=== PATIENT | female | born 1950 | race African-American/Black ===

== ENCOUNTER 2016-12-17 17:52 | Emergency (ER) | payer OTHER ==
[~2016-12-17] VITALS: Ht 160 cm; Wt 104.5 kg
[2016-12-17] MEDS ORDERED: ALBUTEROL SULFATE 2.5 MG/0.5 ML NEB SOLUTION NEB ONE (19:00)
[2016-12-17] MEDS ORDERED: 0.9% SODIUM CHLORIDE 5 ML NEB SOLUTION NEB ONE (19:34)
[2016-12-17] MEDS ORDERED: MECLIZINE HCL 25 MG TABLET PO ONE (19:45)
[2016-12-17 19:57] LABS: BASOPHILS % (AUTO) 0.6 % (0.0-2.0); EOSINOPHILS % (AUTO) 2.6 % (1.0-6.0); HEMATOCRIT 35.8 % (36-46); HEMOGLOBIN 12.1 g/dL (12.0-16.0); LYMPHOCYTES # (AUTO) 3.2 K/uL (1.0-4.8); LYMPHOCYTES % (AUTO) 47.7 % (22.0-44.0); MEAN CORPUSCULAR HEMOGLOBIN 29.5 pg (26.0-34.0); MEAN CORPUSCULAR HGB CONC 33.7 G/dL (31.0-37.0); MEAN CORPUSCULAR VOLUME 88 fL (80-100); MONOCYTES # (AUTO) 0.5 K/uL (0.1-1.0); MONOCYTES % (AUTO) 7.7 % (2.0-9.0); NEUTROPHILS # (AUTO) 2.8 K/uL (1.8-7.7); NEUTROPHILS % (AUTO) 41.4 % (40.0-70.0); PLATELET COUNT (AUTO) 239 K/uL (150-450); RED BLOOD CELL COUNT(AUTO) 4.08 MIL/uL (4.00-5.20); RED CELL DISTRIBUTION WIDTH 15.9 % (11.5-14.5); WHITE BLOOD COUNT (AUTO) 6.8 K/uL (4.5-11.0)
[2016-12-17 20:14] LABS: ANION GAP 7 mmol/L (8-16); CALCIUM, TOTAL 9.1 mg/dL (8.8-10.5); CARBON DIOXIDE 29 mmol/L (22-29); CHLORIDE 109 mmol/L (98-107); CREATININE 0.94 mg/dL (0.60-1.30); GLOMERULAR FILTR. RATE CALC > 60 mL/min (>60); POTASSIUM 3.4 mmol/L (3.5-5.1); SODIUM SERUM 145 mmol/L (136-145); UREA NITROGEN, BLOOD 12 mg/dL (7-18)
[2016-12-17 20:17] LABS: B-TYPE NATRIURETIC PEPTIDE 27 pg/mL (0-100)
[2016-12-17 20:18] LABS: APPEARANCE,URINE CLEAR (CLEAR); GLUCOSE, URINE (UA) NEGATIVE (NEGATIVE); KETONES,URINE NEGATIVE (NEGATIVE); LEUKOCYTE ESTERASE ,URINE NEGATIVE (NEGATIVE); OCCULT BLOOD,URINE NEGATIVE (NEGATIVE); PROTEIN,URINE SEE CONFIRM (NEGATIVE)
[2016-12-17 20:19] LABS: ALANINE AMINOTRANSFERASE 16 U/L (12-78); ALBUMIN 3.2 g/dL (3.4-5.0); ASPARTATE AMINOTRANSFERASE 15 U/L (15-37); BILIRUBIN,TOTAL 0.2 mg/dL (0.1-1.0); TOTAL PROTEIN, SERUM 7.2 g/dL (6.4-8.2)
[2016-12-17 20:21] LABS: ADD UA MICROSCOPIC YES
[2016-12-17 20:23] LABS: RBC,URINE 0-2 /HPF (0-2); SQUAMOUS EPITHELIAL CELL,UR Moderate /LPF (None Seen); SULFOSALICYLIC ACID,URINE 2+ (Negative)
[2016-12-17 21:24] VITALS: BP 124/85
== END 2016-12-17 21:26 | disposition home or self-care (01) ==
LOC: EMS 17:52
DX: J45.909 Unspecified asthma, uncomplicated (principal); R60.0 Localized edema; R42 Dizziness and giddiness; E78.00 Pure hypercholesterolemia, unspecified; I10 Essential (primary) hypertension; F17.210 Nicotine dependence, cigarettes, uncomplicated
CPT/HCPCS: 36415; 71010; 80053; 81001; 83880; 84484; 85025; 93005; 94640; 99285; J7613

== ENCOUNTER 2017-01-11 18:56 | Emergency (ER) | payer OTHER ==
[~2017-01-11] VITALS: Ht 160 cm; Wt 109.1 kg
[2017-01-11] MEDS ORDERED: LOSA25TA21 PO (19:06)
[2017-01-11] MEDS ORDERED: ATOR10TA84 PO (19:06)
[2017-01-11] MEDS ORDERED: HYDR25TA PO (19:06)
[2017-01-11 19:48] LABS: BASOPHILS # (AUTO) 0.08 K/uL (0.00-0.20); BASOPHILS % (AUTO) 0.9 % (0.0-2.0); EOSINOPHILS # (AUTO) 0.14 K/uL (0.00-0.70); EOSINOPHILS % (AUTO) 1.66 % (1.0-6.0); HEMATOCRIT 38.3 % (36-46); HEMOGLOBIN 12.2 g/dL (12.0-16.0); LYMPHOCYTES # (AUTO) 3.4 K/uL (1.0-4.8); LYMPHOCYTES % (AUTO) 38.7 % (22.0-44.0); MEAN CORPUSCULAR HGB CONC 31.9 G/dL (31.0-37.0); MEAN CORPUSCULAR VOLUME 91 fL (80-100); MONOCYTES # (AUTO) 0.4 K/uL (0.1-1.0); MONOCYTES % (AUTO) 4.6 % (2.0-9.0); NEUTROPHILS # (AUTO) 4.7 K/uL (1.8-7.7); NEUTROPHILS % (AUTO) 54.2 % (40.0-70.0); PLATELET COUNT (AUTO) 226 K/uL (150-450); RED BLOOD CELL COUNT(AUTO) 4.22 MIL/uL (4.00-5.20); WHITE BLOOD COUNT (AUTO) 8.7 K/uL (4.5-11.0)
[2017-01-11 20:00] LABS: CALCIUM, TOTAL 9.7 mg/dL (8.8-10.5); CREATININE 1.13 mg/dL (0.60-1.30)
[2017-01-11 20:05] LABS: ALBUMIN 3.2 g/dL (3.4-5.0); BILIRUBIN,TOTAL 0.4 mg/dL (0.1-1.0); TOTAL PROTEIN, SERUM 7.7 g/dL (6.4-8.2)
[2017-01-11] MEDS ORDERED: SODIUM CHLORIDE 0.9% 1,000 ML IV ONE (20:45)
[2017-01-11] MEDS ORDERED: ONDANSETRON HCL 4 MG/2 ML VIAL IVP ONE (20:45)
[2017-01-11] MEDS ORDERED: MORPHINE SULFATE 4 MG/ML SYRINGE IVP ONE (20:45)
[2017-01-11] MEDS ORDERED: KETOROLAC TROMETHAMINE 30 MG/ML VIAL IVP ONE (20:45)
[2017-01-11 21:00] LABS: APPEARANCE,URINE CLOUDY (CLEAR); GLUCOSE, URINE (UA) NEGATIVE (NEGATIVE); KETONES,URINE NEGATIVE (NEGATIVE); LEUKOCYTE ESTERASE ,URINE NEGATIVE (NEGATIVE); OCCULT BLOOD,URINE TRACE (NEGATIVE); PROTEIN,URINE SEE CONFIRM (NEGATIVE)
[2017-01-11 21:06] LABS: ADD UA MICROSCOPIC YES
[2017-01-11 21:08] LABS: SULFOSALICYLIC ACID,URINE 1+ (Negative)
[2017-01-11 21:09] LABS: RBC,URINE 0-2 /HPF (0-2); SQUAMOUS EPITHELIAL CELL,UR Few /LPF (None Seen); WBC,URINE 0-2 /HPF (0-5)
[2017-01-11] MEDS ORDERED: LORazepam 2 MG/ML VIAL IVP ONE (23:45)
[2017-01-11] MEDS ORDERED: HYDROmorphone 2 MG/ML SYRINGE IVP ONE (23:45)
[2017-01-12 00:52] VITALS: BP 104/66
== END 2017-01-12 01:22 | disposition home or self-care (01) ==
LOC: EMS 18:58
DX: R10.9 Unspecified abdominal pain (principal); I10 Essential (primary) hypertension; E78.00 Pure hypercholesterolemia, unspecified; J45.909 Unspecified asthma, uncomplicated; F17.210 Nicotine dependence, cigarettes, uncomplicated
CPT/HCPCS: 36415; 74176; 80053; 81001; 85025; 96361; 96374; 96375; 99285; J1170; J1885; J2060; J2270; J2405; J7030

== ENCOUNTER 2017-01-29 08:55 | Emergency (ER) | payer OTHER ==
[~2017-01-29] VITALS: Ht 162.6 cm; Wt 109.1 kg
[~2017-01-29 08:55] MED LIST: ATOR10TA84 PO; HYDR25TA PO; LOSA25TA21 PO
[2017-01-29] MEDS ORDERED: IPRA4AER IH (09:05)
[2017-01-29 09:45] LABS: BASOPHILS # (AUTO) 0.04 K/uL (0.00-0.20); BASOPHILS % (AUTO) 0.7 % (0.0-2.0); EOSINOPHILS # (AUTO) 0.18 K/uL (0.00-0.70); EOSINOPHILS % (AUTO) 2.77 % (1.0-6.0); HEMATOCRIT 36.1 % (36-46); HEMOGLOBIN 12.1 g/dL (12.0-16.0); LYMPHOCYTES # (AUTO) 2.4 K/uL (1.0-4.8); LYMPHOCYTES % (AUTO) 36.5 % (22.0-44.0); MEAN CORPUSCULAR HEMOGLOBIN 29.2 pg (26.0-34.0); MEAN CORPUSCULAR HGB CONC 33.4 G/dL (31.0-37.0); MEAN CORPUSCULAR VOLUME 87 fL (80-100); MONOCYTES # (AUTO) 0.3 K/uL (0.1-1.0); MONOCYTES % (AUTO) 5.3 % (2.0-9.0); NEUTROPHILS # (AUTO) 3.6 K/uL (1.8-7.7); NEUTROPHILS % (AUTO) 54.8 % (40.0-70.0); PLATELET COUNT (AUTO) 234 K/uL (150-450); RED BLOOD CELL COUNT(AUTO) 4.13 MIL/uL (4.00-5.20); RED CELL DISTRIBUTION WIDTH 14.6 % (11.5-14.5); WHITE BLOOD COUNT (AUTO) 6.5 K/uL (4.5-11.0)
[2017-01-29 09:56] LABS: APPEARANCE,URINE CLOUDY (CLEAR); GLUCOSE, URINE (UA) NEGATIVE (NEGATIVE); KETONES,URINE NEGATIVE (NEGATIVE); LEUKOCYTE ESTERASE ,URINE NEGATIVE (NEGATIVE); OCCULT BLOOD,URINE NEGATIVE (NEGATIVE); PROTEIN,URINE SEE CONFIRM (NEGATIVE)
[2017-01-29 09:57] LABS: PROTHROMBIN TIME 10.3 SEC (9.4-11.6)
[2017-01-29 09:58] LABS: ANION GAP 8 mmol/L (8-16); CALCIUM, TOTAL 9.8 mg/dL (8.8-10.5); CARBON DIOXIDE 31 mmol/L (22-29); CHLORIDE 105 mmol/L (98-107); CREATININE 0.88 mg/dL (0.60-1.30); GLOMERULAR FILTR. RATE CALC > 60 mL/min (>60); POTASSIUM 3.3 mmol/L (3.5-5.1); SODIUM SERUM 144 mmol/L (136-145); UREA NITROGEN, BLOOD 13 mg/dL (7-18)
[2017-01-29 10:01] LABS: ADD UA MICROSCOPIC YES
[2017-01-29 10:04] LABS: B-TYPE NATRIURETIC PEPTIDE 16 pg/mL (0-100)
[2017-01-29 10:14] LABS: SULFOSALICYLIC ACID,URINE 2+ (Negative)
[2017-01-29 10:15] LABS: SQUAMOUS EPITHELIAL CELL,UR Many /LPF (None Seen)
[2017-01-29 10:16] LABS: RBC,URINE 0-2 /HPF (0-2); WBC,URINE 0-2 /HPF (0-5)
[2017-01-29 10:21] LABS: ALANINE AMINOTRANSFERASE 22 U/L (12-78); ALBUMIN 3.2 g/dL (3.4-5.0); ASPARTATE AMINOTRANSFERASE 19 U/L (15-37); BILIRUBIN,TOTAL 0.4 mg/dL (0.1-1.0); CREATINE KINASE MB 0.5 ng/mL (0-5); CREATINE KINASE, TOTAL 146 U/L (26-192); TOTAL PROTEIN, SERUM 7.6 g/dL (6.4-8.2)
[2017-01-29] MEDS ORDERED: IPRATROPIUM BROMIDE 0.5 MG/2.5 ML NEB SOLUTION NEB ONE (10:30)
[2017-01-29] MEDS ORDERED: ALBUTEROL SULFATE 2.5 MG/0.5 ML NEB SOLUTION NEB ONE (10:30)
[2017-01-29] MEDS ORDERED: MethylPREDNISolone SOD SUCC 125 MG/2 ML VIAL IVP ONE (11:15)
[2017-01-29 12:01] VITALS: BP 130/42
== END 2017-01-29 12:12 | disposition home or self-care (01) ==
LOC: EMS 08:56
DX: J45.909 Unspecified asthma, uncomplicated (principal); I10 Essential (primary) hypertension; F17.210 Nicotine dependence, cigarettes, uncomplicated
CPT/HCPCS: 36415; 71010; 80053; 81001; 82550; 82553; 83880; 84484; 85025; 85610; 85730; 93005; 94640; 96374; 99285; J2930; J7613

== ENCOUNTER 2017-03-26 05:25 | Emergency (ER) | payer OTHER ==
[~2017-03-26] VITALS: Ht 160 cm; Wt 108.6 kg
[~2017-03-26 05:25] MED LIST changes: +IPRA4AER IH
[2017-03-26] MEDS ORDERED: FURO20 PO (05:30)
[2017-03-26] MEDS ORDERED: ALBUTEROL SULFATE 2.5 MG/0.5 ML NEB SOLUTION NEB ONE (05:45)
[2017-03-26] MEDS ORDERED: IPRATROPIUM BROMIDE 0.5 MG/2.5 ML NEB SOLUTION NEB ONE (05:45)
[2017-03-26] MEDS ORDERED: PredniSONE 20 MG TABLET PO ONE (06:15)
[2017-03-26] MEDS ORDERED: ALBUTEROL SULFATE HFA 90 MCG/PUFF 8 GM INHALER IH ONE (11:30)
[2017-03-26 11:46] VITALS: BP 119/78
== END 2017-03-26 11:56 | disposition home or self-care (01) ==
LOC: EMS 05:26
DX: J45.909 Unspecified asthma, uncomplicated (principal); I10 Essential (primary) hypertension; E78.00 Pure hypercholesterolemia, unspecified; F17.210 Nicotine dependence, cigarettes, uncomplicated
CPT/HCPCS: 71010; 94640; 99285; J7512; J7613; J3535

== ENCOUNTER 2017-04-15 22:11 | Emergency (ER) | payer OTHER ==
[~2017-04-15] VITALS: Ht 162.6 cm; Wt 125.0 kg
[~2017-04-15 22:11] MED LIST changes: +FURO20 PO
[2017-04-15 22:53] LABS: BASOPHILS # (AUTO) 0.03 K/uL (0.00-0.20); BASOPHILS % (AUTO) 0.4 % (0.0-2.0); EOSINOPHILS # (AUTO) 0.02 K/uL (0.00-0.70); EOSINOPHILS % (AUTO) 0.29 % (1.0-6.0); HEMOGLOBIN 10.8 g/dL (12.0-16.0); LYMPHOCYTES # (AUTO) 1.8 K/uL (1.0-4.8); LYMPHOCYTES % (AUTO) 22.9 % (22.0-44.0); MEAN CORPUSCULAR HEMOGLOBIN 29.4 pg (26.0-34.0); MEAN CORPUSCULAR HGB CONC 32.7 G/dL (31.0-37.0); MEAN CORPUSCULAR VOLUME 90 fL (80-100); MONOCYTES # (AUTO) 0.4 K/uL (0.1-1.0); MONOCYTES % (AUTO) 5.3 % (2.0-9.0); NEUTROPHILS # (AUTO) 5.6 K/uL (1.8-7.7); NEUTROPHILS % (AUTO) 71.1 % (40.0-70.0); PLATELET COUNT (AUTO) 279 K/uL (150-450); RED BLOOD CELL COUNT(AUTO) 3.68 MIL/uL (4.00-5.20); RED CELL DISTRIBUTION WIDTH 15.4 % (11.5-14.5)
[2017-04-15 23:02] LABS: ANION GAP 3 mmol/L (8-16); CALCIUM, TOTAL 9.2 mg/dL (8.8-10.5); CARBON DIOXIDE 33 mmol/L (22-29); CHLORIDE 105 mmol/L (98-107); CREATININE 1.24 mg/dL (0.60-1.30); GLOMERULAR FILTR. RATE CALC 53 mL/min (>60); GLUCOSE,RANDOM 151 mg/dL (70-110); POTASSIUM 3.4 mmol/L (3.5-5.1); SODIUM SERUM 141 mmol/L (136-145); UREA NITROGEN, BLOOD 22 mg/dL (7-18)
[2017-04-15 23:15] LABS: B-TYPE NATRIURETIC PEPTIDE 37 pg/mL (0-100)
[2017-04-15] MEDS ORDERED: POTASSIUM CHLORIDE 20 MEQ ER TABLET PO ONE (23:15)
[2017-04-15 23:31] LABS: ALANINE AMINOTRANSFERASE 17 U/L (12-78); ALBUMIN 3.1 g/dL (3.4-5.0); ALKALINE PHOSPHATASE 91 U/L (46-116); ASPARTATE AMINOTRANSFERASE 13 U/L (15-37); BILIRUBIN,TOTAL 0.2 mg/dL (0.1-1.0); CREATINE KINASE MB 0.6 ng/mL (0-5); CREATINE KINASE, TOTAL 114 U/L (26-192); THYROID STIMULATING HORMONE 1.34 uIU/mL (0.36-3.74); TOTAL PROTEIN, SERUM 7.2 g/dL (6.4-8.2)
[2017-04-15 23:45] LABS: APPEARANCE,URINE CLEAR (CLEAR); BILIRUBIN,URINE NEGATIVE (NEGATIVE); GLUCOSE, URINE (UA) NEGATIVE (NEGATIVE); KETONES,URINE NEGATIVE (NEGATIVE); LEUKOCYTE ESTERASE ,URINE SMALL (NEGATIVE); NITRATE,URINE NEGATIVE (NEGATIVE); OCCULT BLOOD,URINE NEGATIVE (NEGATIVE); PH,URINE 6.5 (5.0-8.0); PROTEIN,URINE POS 1+ (NEGATIVE)
[2017-04-15 23:56] LABS: SQUAMOUS EPITHELIAL CELL,UR Few /LPF (None Seen)
[2017-04-16] LABS: RBC,URINE 0-2 /HPF (0-2)
[2017-04-16 00:01] LABS: BACTERIA,URINE Few /HPF (None Seen)
[2017-04-16 00:18] VITALS: BP 137/85
[2017-04-16] MEDS ORDERED: KETOROLAC TROMETHAMINE 60 MG/2 ML VIAL IM ONE (00:30)
[2017-04-16] MEDS ORDERED: HydrOXYzine HCL 25 MG TABLET PO ONE (00:30)
== END 2017-04-16 00:43 | disposition home or self-care (01) ==
LOC: EMS 22:12
DX: F41.9 Anxiety disorder, unspecified (principal); E87.6 Hypokalemia; M25.562 Pain in left knee; G89.29 Other chronic pain; J45.909 Unspecified asthma, uncomplicated; E78.00 Pure hypercholesterolemia, unspecified; I10 Essential (primary) hypertension; F17.210 Nicotine dependence, cigarettes, uncomplicated
CPT/HCPCS: 36415; 71010; 80053; 81001; 82550; 82553; 83880; 84443; 84484; 85025; 87077; 87086; 87147; 93005; 96372; 99285; J1885

== ENCOUNTER 2017-04-30 18:12 | Emergency (ER) | payer OTHER ==
[~2017-04-30] VITALS: Ht 162.6 cm; Wt 104.5 kg
[2017-04-30 18:15] VITALS: BP 126/67
[2017-04-30] MEDS ORDERED: KETOROLAC TROMETHAMINE 60 MG/2 ML VIAL IM ONE (20:15)
== END 2017-04-30 21:32 | disposition home or self-care (01) ==
LOC: EMS 18:13
DX: M25.461 Effusion, right knee (principal); M25.561 Pain in right knee; J45.909 Unspecified asthma, uncomplicated; I10 Essential (primary) hypertension; E78.00 Pure hypercholesterolemia, unspecified; F17.210 Nicotine dependence, cigarettes, uncomplicated
CPT/HCPCS: 29505; 73562; 96372; 99284; J1885

== ENCOUNTER 2017-06-06 17:43 | Emergency (ER) | payer OTHER ==
[~2017-06-06] VITALS: Ht 162.6 cm; Wt 108.6 kg
[2017-06-06 18:19] LABS: BASOPHILS # (AUTO) 0.03 K/uL (0.00-0.20); BASOPHILS % (AUTO) 0.5 % (0.0-2.0); EOSINOPHILS # (AUTO) 0.05 K/uL (0.00-0.70); EOSINOPHILS % (AUTO) 0.92 % (1.0-6.0); HEMOGLOBIN 11.3 g/dL (12.0-16.0); LYMPHOCYTES # (AUTO) 1.3 K/uL (1.0-4.8); LYMPHOCYTES % (AUTO) 22.5 % (22.0-44.0); MEAN CORPUSCULAR HEMOGLOBIN 29.1 pg (26.0-34.0); MEAN CORPUSCULAR HGB CONC 32.3 G/dL (31.0-37.0); MEAN CORPUSCULAR VOLUME 90 fL (80-100); MONOCYTES # (AUTO) 0.6 K/uL (0.1-1.0); MONOCYTES % (AUTO) 9.9 % (2.0-9.0); NEUTROPHILS # (AUTO) 3.9 K/uL (1.8-7.7); NEUTROPHILS % (AUTO) 66.2 % (40.0-70.0); PLATELET COUNT (AUTO) 277 K/uL (150-450); RED BLOOD CELL COUNT(AUTO) 3.89 MIL/uL (4.00-5.20)
[2017-06-06 18:30] LABS: ANION GAP 4 mmol/L (8-16); CALCIUM, TOTAL 9.6 mg/dL (8.8-10.5); CARBON DIOXIDE 32 mmol/L (22-29); CHLORIDE 104 mmol/L (98-107); CREATININE 1.06 mg/dL (0.60-1.30); GLOMERULAR FILTR. RATE CALC > 60 mL/min (>60); GLUCOSE,RANDOM 96 mg/dL (70-110); POTASSIUM 3.2 mmol/L (3.5-5.1); SODIUM SERUM 140 mmol/L (136-145); UREA NITROGEN, BLOOD 13 mg/dL (7-18)
[2017-06-06 18:35] LABS: PLATELET MORPHOLOGY COMMENT GIANT PLTS PRESENT
[2017-06-06 18:36] LABS: ALANINE AMINOTRANSFERASE 18 U/L (12-78); ALBUMIN 3.1 g/dL (3.4-5.0); ALKALINE PHOSPHATASE 83 U/L (46-116); ASPARTATE AMINOTRANSFERASE 16 U/L (15-37); BILIRUBIN,TOTAL 0.2 mg/dL (0.1-1.0); TOTAL PROTEIN, SERUM 7.8 g/dL (6.4-8.2)
[2017-06-06] MEDS ORDERED: ACETAMINOPHEN 325 MG TABLET PO ONE (18:45)
[2017-06-06 19:27] LABS: INFLUENZA TYPE A NEGATIVE FOR TYPE A (NEGATIVE); INFLUENZA TYPE B NEGATIVE FOR TYPE B (NEGATIVE)
[2017-06-06 19:48] VITALS: BP 133/70
== END 2017-06-06 20:43 | disposition home or self-care (01) ==
LOC: EMS 17:44
DX: J40 Bronchitis, not specified as acute or chronic (principal); J11.1 Influenza due to unidentified influenza virus with other respiratory manifestations; E78.00 Pure hypercholesterolemia, unspecified; I10 Essential (primary) hypertension; F17.210 Nicotine dependence, cigarettes, uncomplicated; Z79.899 Other long term (current) drug therapy
CPT/HCPCS: 87804; 93005; 99285

== ENCOUNTER 2017-10-12 06:08 | Emergency (ER) | payer MEDICARE, OTHER ==
[~2017-10-12] VITALS: Ht 157.5 cm; Wt 110.0 kg
[2017-10-12] MEDS ORDERED: POTA-9 PO (06:18)
[2017-10-12] MEDS ORDERED: BUDE10.22 IH (06:18)
[2017-10-12] MEDS ORDERED: ALBUTEROL SULFATE 2.5 MG/0.5 ML NEB SOLUTION NEB ONE (06:45)
[2017-10-12] MEDS ORDERED: IPRATROPIUM BROMIDE 0.5 MG/2.5 ML NEB SOLUTION NEB ONE (06:45)
[2017-10-12] MEDS ORDERED: 0.9% SODIUM CHLORIDE 5 ML NEB SOLUTION NEB ONE (06:49)
[2017-10-12 06:58] LABS: BASOPHILS % (AUTO) 0.7 % (0.0-2.0); EOSINOPHILS % (AUTO) 1.8 % (1.0-6.0); HEMATOCRIT 34.8 % (36-46); HEMOGLOBIN 11.5 g/dL (12.0-16.0); LYMPHOCYTES # (AUTO) 2.3 K/uL (1.0-4.8); LYMPHOCYTES % (AUTO) 39.2 % (22.0-44.0); MEAN CORPUSCULAR HEMOGLOBIN 28.6 pg (26.0-34.0); MEAN CORPUSCULAR HGB CONC 33.2 G/dL (31.0-37.0); MEAN CORPUSCULAR VOLUME 86 fL (80-100); MONOCYTES # (AUTO) 0.4 K/uL (0.1-1.0); MONOCYTES % (AUTO) 6.8 % (2.0-9.0); NEUTROPHILS # (AUTO) 3.1 K/uL (1.8-7.7); NEUTROPHILS % (AUTO) 51.5 % (40.0-70.0); PLATELET COUNT (AUTO) 286 K/uL (150-450); RED BLOOD CELL COUNT(AUTO) 4.03 MIL/uL (4.00-5.20); RED CELL DISTRIBUTION WIDTH 15.3 % (11.5-14.5)
[2017-10-12 07:10] LABS: ANION GAP 7 mmol/L (8-16); CARBON DIOXIDE 33 mmol/L (22-29); CHLORIDE 103 mmol/L (98-107); CREATININE 1.05 mg/dL (0.60-1.30); GLOMERULAR FILTR. RATE CALC > 60 mL/min (>60); GLUCOSE,RANDOM 112 mg/dL (70-110); SODIUM SERUM 143 mmol/L (136-145); UREA NITROGEN, BLOOD 18 mg/dL (7-18)
[2017-10-12 07:15] LABS: ALANINE AMINOTRANSFERASE 18 U/L (12-78); ALKALINE PHOSPHATASE 81 U/L (46-116); ASPARTATE AMINOTRANSFERASE 18 U/L (15-37); BILIRUBIN,TOTAL 0.2 mg/dL (0.1-1.0); TOTAL PROTEIN, SERUM 7.5 g/dL (6.4-8.2)
[2017-10-12 07:34] LABS: B-TYPE NATRIURETIC PEPTIDE 9 pg/mL (0-100)
[2017-10-12] MEDS ORDERED: SODIUM CHLORIDE 0.9% 1,000 ML IV ONE ×2 (08:00→10:30)
[2017-10-12] MEDS ORDERED: POTASSIUM CHLORIDE 20 MEQ ER TABLET PO ONE (08:00)
[2017-10-12 11:15] VITALS: BP 115/66
== END 2017-10-12 12:42 | disposition home or self-care (01) ==
LOC: EMS 06:09
DX: J45.909 Unspecified asthma, uncomplicated (principal); R42 Dizziness and giddiness; E87.6 Hypokalemia; I10 Essential (primary) hypertension; E78.00 Pure hypercholesterolemia, unspecified; F17.210 Nicotine dependence, cigarettes, uncomplicated
CPT/HCPCS: 36415; 71045; 80053; 83880; 84484; 85025; 93005; 94640; 96360; 96361; 99285; J7030

== ENCOUNTER 2017-12-09 21:39 | Emergency (ER) | payer MEDICARE, OTHER ==
[~2017-12-09] VITALS: Ht 160 cm; Wt 109.1 kg
[~2017-12-09 21:39] MED LIST changes: -ATOR10TA84 PO; +BUDE10.22 IH; -FURO20 PO; +POTA-9 PO
[2017-12-09] MEDS ORDERED: CYCLOBENZAPRINE HCL 10 MG TABLET PO ONE (22:30)
[2017-12-09 22:53] LABS: BASOPHILS % (AUTO) 0.9 % (0.0-2.0); EOSINOPHILS % (AUTO) 2.2 % (1.0-6.0); HEMATOCRIT 32.7 % (36-46); HEMOGLOBIN 10.9 g/dL (12.0-16.0); LYMPHOCYTES # (AUTO) 2.9 K/uL (1.0-4.8); LYMPHOCYTES % (AUTO) 37.2 % (22.0-44.0); MEAN CORPUSCULAR HEMOGLOBIN 28.9 pg (26.0-34.0); MEAN CORPUSCULAR HGB CONC 33.4 G/dL (31.0-37.0); MEAN CORPUSCULAR VOLUME 87 fL (80-100); MONOCYTES # (AUTO) 0.6 K/uL (0.1-1.0); MONOCYTES % (AUTO) 8.2 % (2.0-9.0); NEUTROPHILS # (AUTO) 4.1 K/uL (1.8-7.7); NEUTROPHILS % (AUTO) 51.5 % (40.0-70.0); PLATELET COUNT (AUTO) 261 K/uL (150-450); RED BLOOD CELL COUNT(AUTO) 3.78 MIL/uL (4.00-5.20); RED CELL DISTRIBUTION WIDTH 15.8 % (11.5-14.5)
[2017-12-09 23:03] LABS: CREATININE 1.21 mg/dL (0.60-1.30); POTASSIUM 3.4 mmol/L (3.5-5.1)
[2017-12-09 23:09] LABS: ALBUMIN 3.1 g/dL (3.4-5.0); BILIRUBIN,TOTAL 0.2 mg/dL (0.1-1.0); TOTAL PROTEIN, SERUM 7.3 g/dL (6.4-8.2)
[2017-12-10 04:23] VITALS: BP 116/67
== END 2017-12-10 04:24 | disposition home or self-care (01) ==
LOC: EMS 21:40
DX: M79.622 Pain in left upper arm (principal); J45.909 Unspecified asthma, uncomplicated; E78.00 Pure hypercholesterolemia, unspecified; I10 Essential (primary) hypertension; Z87.891 Personal history of nicotine dependence
CPT/HCPCS: 93005; 93971; 99285

== ENCOUNTER 2018-01-26 17:05 | Emergency (ER) | payer MEDICARE, OTHER ==
[~2018-01-26] VITALS: Ht 162.6 cm; Wt 108.6 kg
[~2018-01-26 17:05] MED LIST changes: +LOSA25TA16 PO; -LOSA25TA21 PO
[2018-01-26 18:35] LABS: BASOPHILS % (AUTO) 0.6 % (0.0-2.0); EOSINOPHILS % (AUTO) 1.7 % (1.0-6.0); HEMATOCRIT 36.6 % (36-46); HEMOGLOBIN 11.9 g/dL (12.0-16.0); LYMPHOCYTES % (AUTO) 43.2 % (22.0-44.0); MEAN CORPUSCULAR HEMOGLOBIN 28.6 pg (26.0-34.0); MEAN CORPUSCULAR HGB CONC 32.6 G/dL (31.0-37.0); MEAN CORPUSCULAR VOLUME 88 fL (80-100); MONOCYTES # (AUTO) 0.5 K/uL (0.1-1.0); MONOCYTES % (AUTO) 7.2 % (2.0-9.0); NEUTROPHILS # (AUTO) 3.2 K/uL (1.8-7.7); NEUTROPHILS % (AUTO) 47.3 % (40.0-70.0); PLATELET COUNT (AUTO) 294 K/uL (150-450); RED BLOOD CELL COUNT(AUTO) 4.18 MIL/uL (4.00-5.20); RED CELL DISTRIBUTION WIDTH 15.3 % (11.5-14.5)
[2018-01-26 19:03] LABS: B-TYPE NATRIURETIC PEPTIDE 11 pg/mL (0-100)
[2018-01-26 19:09] LABS: ALANINE AMINOTRANSFERASE 19 U/L (12-78); ALBUMIN 3.2 g/dL (3.4-5.0); ALKALINE PHOSPHATASE 90 U/L (46-116); ANION GAP 6 mmol/L (8-16); ASPARTATE AMINOTRANSFERASE 17 U/L (15-37); BILIRUBIN,TOTAL 0.3 mg/dL (0.1-1.0); CALCIUM, TOTAL 9.4 mg/dL (8.8-10.5); CARBON DIOXIDE 34 mmol/L (22-29); CHLORIDE 103 mmol/L (98-107); CREATINE KINASE MB 0.9 ng/mL (0-5); CREATINE KINASE, TOTAL 148 U/L (26-192); CREATININE 1.12 mg/dL (0.60-1.30); GLOMERULAR FILTR. RATE CALC 59 mL/min (>60); GLUCOSE,RANDOM 95 mg/dL (70-110); SODIUM SERUM 143 mmol/L (136-145); TOTAL PROTEIN, SERUM 7.5 g/dL (6.4-8.2); UREA NITROGEN, BLOOD 18 mg/dL (7-18)
[2018-01-26 19:11] LABS: POTASSIUM 2.7 mmol/L (3.5-5.1)
[2018-01-26] MEDS ORDERED: POTASSIUM CHLORIDE 20 MEQ ER TABLET PO ONE (20:00)
[2018-01-26] MEDS: POTASSIUM CHL 10 MEQ/WATER 50 ML IV SCH ×2 (20:29→21:13)
[2018-01-26 21:23] LABS: APPEARANCE,URINE CLEAR (CLEAR); BILIRUBIN,URINE NEGATIVE (NEGATIVE); GLUCOSE, URINE (UA) NEGATIVE (NEGATIVE); KETONES,URINE NEGATIVE (NEGATIVE); LEUKOCYTE ESTERASE ,URINE NEGATIVE (NEGATIVE); NITRATE,URINE NEGATIVE (NEGATIVE); OCCULT BLOOD,URINE NEGATIVE (NEGATIVE); PH,URINE 5.5 (5.0-8.0); PROTEIN,URINE NEGATIVE (NEGATIVE); UROBILINOGEN,URINE 0.2 mg/dL (<=1.0)
[2018-01-26 22:07] VITALS: BP 120/70
== END 2018-01-26 22:19 | disposition home or self-care (01) ==
LOC: EMS 17:06
DX: E87.6 Hypokalemia (principal); R42 Dizziness and giddiness; R00.2 Palpitations; M79.89 Other specified soft tissue disorders; J45.909 Unspecified asthma, uncomplicated; E78.00 Pure hypercholesterolemia, unspecified; I10 Essential (primary) hypertension; Z87.891 Personal history of nicotine dependence
CPT/HCPCS: 36415; 71045; 80053; 81003; 82550; 82553; 83880; 84484; 85025; 85610; 85730; 93005; 96365; 96366; 99285; J3480

== ENCOUNTER 2018-05-02 22:02 | Emergency (ER) | payer MEDICARE, OTHER ==
[~2018-05-02] VITALS: Ht 160 cm; Wt 109.1 kg
[2018-05-02] MEDS ORDERED: IPRAHFA IH (22:14)
[2018-05-02] MEDS ORDERED: ATOR40TA71 PO (22:15)
[2018-05-02] MEDS ORDERED: MethylPREDNISolone SOD SUCC 125 MG/2 ML VIAL IM ONE (23:00)
[2018-05-02] MEDS ORDERED: ALBUTEROL SULFATE 2.5 MG/0.5 ML NEB SOLUTION NEB ONE (23:00)
[2018-05-02] MEDS ORDERED: 0.9% SODIUM CHLORIDE 5 ML NEB SOLUTION NEB ONE (23:10)
[2018-05-02 23:22] LABS: BASOPHILS % (AUTO) 1.2 % (0.0-2.0); EOSINOPHILS % (AUTO) 1.9 % (1.0-6.0); HEMATOCRIT 34.4 % (36-46); HEMOGLOBIN 11.4 g/dL (12.0-16.0); LYMPHOCYTES # (AUTO) 3.4 K/uL (1.0-4.8); LYMPHOCYTES % (AUTO) 46.3 % (22.0-44.0); MEAN CORPUSCULAR HEMOGLOBIN 28.8 pg (26.0-34.0); MEAN CORPUSCULAR HGB CONC 33.3 G/dL (31.0-37.0); MEAN CORPUSCULAR VOLUME 87 fL (80-100); MONOCYTES # (AUTO) 0.6 K/uL (0.1-1.0); MONOCYTES % (AUTO) 7.5 % (2.0-9.0); NEUTROPHILS # (AUTO) 3.2 K/uL (1.8-7.7); NEUTROPHILS % (AUTO) 43.1 % (40.0-70.0); PLATELET COUNT (AUTO) 261 K/uL (150-450); RED BLOOD CELL COUNT(AUTO) 3.97 MIL/uL (4.00-5.20); RED CELL DISTRIBUTION WIDTH 15.5 % (11.5-14.5)
[2018-05-03] MEDS ORDERED: CefTRIAXone SODIUM 1 GM/VIAL IM ONE (01:15)
[2018-05-03] MEDS ORDERED: AZITHROMYCIN 250 MG TABLET PO ONE (01:15)
[2018-05-03] MEDS ORDERED: LIDOCAINE/PF 1% 2 ML VIAL IM ONE (01:15)
[2018-05-03] MEDS ORDERED: MethylPREDNISolone SOD SUCC 125 MG/2 ML VIAL IM ONE (01:15)
[2018-05-03 01:43] VITALS: BP 131/72
== END 2018-05-03 02:02 | disposition home or self-care (01) ==
LOC: EMS 22:03
DX: J45.909 Unspecified asthma, uncomplicated (principal); J18.9 Pneumonia, unspecified organism; E78.00 Pure hypercholesterolemia, unspecified; I10 Essential (primary) hypertension; Z87.891 Personal history of nicotine dependence
CPT/HCPCS: 36415; 71046; 85025; 94640; 96372; 99284; J0696; J2930; J3490

== ENCOUNTER 2018-05-13 17:53 | Emergency (ER) | payer MEDICARE, OTHER ==
[~2018-05-13] VITALS: Ht 162.6 cm; Wt 109.1 kg
[~2018-05-13 17:53] MED LIST changes: +ATOR40TA71 PO; -BUDE10.22 IH; -IPRA4AER IH; +IPRAHFA IH; -LOSA25TA16 PO; +LOSA25TA41 PO
[2018-05-13 18:23] LABS: BASOPHILS % (AUTO) 1.8 % (0.0-2.0); EOSINOPHILS % (AUTO) 1.5 % (1.0-6.0); HEMATOCRIT 36.8 % (36-46); HEMOGLOBIN 12.2 g/dL (12.0-16.0); LYMPHOCYTES # (AUTO) 4.2 K/uL (1.0-4.8); LYMPHOCYTES % (AUTO) 45.8 % (22.0-44.0); MEAN CORPUSCULAR HEMOGLOBIN 28.8 pg (26.0-34.0); MEAN CORPUSCULAR HGB CONC 33.1 G/dL (31.0-37.0); MEAN CORPUSCULAR VOLUME 87 fL (80-100); MONOCYTES # (AUTO) 0.5 K/uL (0.1-1.0); MONOCYTES % (AUTO) 5.1 % (2.0-9.0); NEUTROPHILS # (AUTO) 4.2 K/uL (1.8-7.7); NEUTROPHILS % (AUTO) 45.8 % (40.0-70.0); PLATELET COUNT (AUTO) 309 K/uL (150-450); RED BLOOD CELL COUNT(AUTO) 4.23 MIL/uL (4.00-5.20); RED CELL DISTRIBUTION WIDTH 15.5 % (11.5-14.5)
[2018-05-13 18:34] LABS: CALCIUM, TOTAL 9.4 mg/dL (8.8-10.5); CREATININE 1.29 mg/dL (0.60-1.30); POTASSIUM 3.2 mmol/L (3.5-5.1)
[2018-05-13 18:40] LABS: ALBUMIN 3.1 g/dL (3.4-5.0); BILIRUBIN,TOTAL 0.4 mg/dL (0.1-1.0); TOTAL PROTEIN, SERUM 7.4 g/dL (6.4-8.2)
[2018-05-13] MEDS ORDERED: BACLOFEN 10 MG TABLET PO ONE (19:15)
[2018-05-13] MEDS ORDERED: KETOROLAC TROMETHAMINE 60 MG/2 ML VIAL IM ONE (19:15)
[2018-05-13] MEDS ORDERED: POTASSIUM CHLORIDE 20 MEQ ER TABLET PO ONE (19:30)
[2018-05-13] MEDS ORDERED: ALBUTEROL SULFATE 2.5 MG/0.5 ML NEB SOLUTION NEB ONE (19:30)
[2018-05-13] MEDS ORDERED: 0.9% SODIUM CHLORIDE 5 ML NEB SOLUTION NEB ONE (19:31)
[2018-05-13 20:06] VITALS: BP 119/72
== END 2018-05-13 20:32 | disposition home or self-care (01) ==
LOC: EMS 17:53
DX: J45.909 Unspecified asthma, uncomplicated (principal); R06.02 Shortness of breath; M54.5 Low back pain; I10 Essential (primary) hypertension; E78.00 Pure hypercholesterolemia, unspecified; F17.210 Nicotine dependence, cigarettes, uncomplicated
CPT/HCPCS: 36415; 71045; 80053; 81002; 83880; 84484; 85025; 93005; 94640; 96372; 99284; J1885

== ENCOUNTER 2018-05-24 16:19 | Emergency (ER) | payer MEDICARE, OTHER ==
[~2018-05-24] VITALS: Ht 162.6 cm; Wt 109.1 kg
[2018-05-24] MEDS ORDERED: CYCLOBENZAPRINE HCL 10 MG TABLET PO ONE (18:30)
[2018-05-24] MEDS ORDERED: KETOROLAC TROMETHAMINE 60 MG/2 ML VIAL IM ONE (18:30)
[2018-05-24] MEDS ORDERED: IPRATROPIUM BROMIDE 0.5 MG/2.5 ML NEB SOLUTION NEB ONE (18:30)
[2018-05-24] MEDS ORDERED: ALBUTEROL SULFATE 2.5 MG/0.5 ML NEB SOLUTION NEB ONE (18:30)
[2018-05-24] MEDS ORDERED: 0.9% SODIUM CHLORIDE 5 ML NEB SOLUTION NEB ONE (18:48)
[2018-05-24] MEDS ORDERED: ACETAMINOPHEN 500 MG TABLET ONE (18:50)
[2018-05-24] MEDS ORDERED: ACETAMINOPHEN 500 MG TABLET PO ONE (19:00)
[2018-05-24 19:10] LABS: BASOPHILS % (AUTO) 0.5 % (0.0-2.0); EOSINOPHILS % (AUTO) 1.8 % (1.0-6.0); HEMATOCRIT 36.1 % (36-46); HEMOGLOBIN 12.1 g/dL (12.0-16.0); LYMPHOCYTES # (AUTO) 3.1 K/uL (1.0-4.8); MEAN CORPUSCULAR HEMOGLOBIN 29.4 pg (26.0-34.0); MEAN CORPUSCULAR HGB CONC 33.4 G/dL (31.0-37.0); MEAN CORPUSCULAR VOLUME 88 fL (80-100); MONOCYTES # (AUTO) 0.5 K/uL (0.1-1.0); MONOCYTES % (AUTO) 7.9 % (2.0-9.0); NEUTROPHILS # (AUTO) 2.8 K/uL (1.8-7.7); NEUTROPHILS % (AUTO) 42.8 % (40.0-70.0); PLATELET COUNT (AUTO) 256 K/uL (150-450); RED CELL DISTRIBUTION WIDTH 16.1 % (11.5-14.5)
[2018-05-24 19:30] LABS: ANION GAP 6 mmol/L (8-16); CARBON DIOXIDE 31 mmol/L (22-29); CHLORIDE 107 mmol/L (98-107); CREATININE 0.94 mg/dL (0.60-1.30); GLOMERULAR FILTR. RATE CALC > 60 mL/min (>60); GLUCOSE,RANDOM 85 mg/dL (70-110); POTASSIUM 3.3 mmol/L (3.5-5.1); SODIUM SERUM 144 mmol/L (136-145); UREA NITROGEN, BLOOD 16 mg/dL (7-18)
[2018-05-24 19:37] LABS: ALANINE AMINOTRANSFERASE 20 U/L (12-78); ALBUMIN 3.2 g/dL (3.4-5.0); ALKALINE PHOSPHATASE 78 U/L (46-116); ASPARTATE AMINOTRANSFERASE 22 U/L (15-37); BILIRUBIN,TOTAL 0.2 mg/dL (0.1-1.0); TOTAL PROTEIN, SERUM 7.3 g/dL (6.4-8.2)
[2018-05-24 19:44] LABS: B-TYPE NATRIURETIC PEPTIDE 17 pg/mL (0-100)
[2018-05-24] MEDS ORDERED: POTASSIUM CHLORIDE 20 MEQ ER TABLET PO ONE (20:00)
[2018-05-24 20:24] LABS: APPEARANCE,URINE CLOUDY (CLEAR); BILIRUBIN,URINE NEGATIVE (NEGATIVE); GLUCOSE, URINE (UA) NEGATIVE (NEGATIVE); KETONES,URINE NEGATIVE (NEGATIVE); LEUKOCYTE ESTERASE ,URINE NEGATIVE (NEGATIVE); NITRATE,URINE NEGATIVE (NEGATIVE); OCCULT BLOOD,URINE NEGATIVE (NEGATIVE); PH,URINE 7.5 (5.0-8.0); PROTEIN,URINE POS 1+ (NEGATIVE)
[2018-05-24 20:54] VITALS: BP 130/70
[2018-05-24 22:48] LABS: CREATINE KINASE, TOTAL ONLY 105 U/L (26-192)
== END 2018-05-24 20:59 | disposition home or self-care (01) ==
LOC: EMS 16:19
DX: M54.5 Low back pain (principal); J45.909 Unspecified asthma, uncomplicated; E78.00 Pure hypercholesterolemia, unspecified; I10 Essential (primary) hypertension; Z88.6 Allergy status to analgesic agent; Z79.899 Other long term (current) drug therapy
CPT/HCPCS: 36415; 80053; 81003; 82550; 83880; 84484; 85025; 93005; 94640; 96372; 99285; J1885

== ENCOUNTER 2018-06-24 04:53 | Emergency (ER) | payer MEDICARE, OTHER ==
[~2018-06-24] VITALS: Ht 162.6 cm; Wt 95.5 kg
[2018-06-24] MEDS ORDERED: IPRATROPIUM BROMIDE 0.5 MG/2.5 ML NEB SOLUTION NEB ONE (05:15)
[2018-06-24] MEDS ORDERED: ALBUTEROL SULFATE 2.5 MG/0.5 ML NEB SOLUTION NEB ONE (05:15)
[2018-06-24 05:30] LABS: BASOPHILS % (AUTO) 0.9 % (0.0-2.0); EOSINOPHILS % (AUTO) 3.6 % (1.0-6.0); HEMATOCRIT 35.9 % (36-46); HEMOGLOBIN 11.7 g/dL (12.0-16.0); LYMPHOCYTES # (AUTO) 2.1 K/uL (1.0-4.8); LYMPHOCYTES % (AUTO) 36.5 % (22.0-44.0); MEAN CORPUSCULAR HEMOGLOBIN 28.8 pg (26.0-34.0); MEAN CORPUSCULAR HGB CONC 32.7 G/dL (31.0-37.0); MEAN CORPUSCULAR VOLUME 88 fL (80-100); MONOCYTES # (AUTO) 0.6 K/uL (0.1-1.0); MONOCYTES % (AUTO) 10.5 % (2.0-9.0); NEUTROPHILS # (AUTO) 2.8 K/uL (1.8-7.7); NEUTROPHILS % (AUTO) 48.5 % (40.0-70.0); PLATELET COUNT (AUTO) 262 K/uL (150-450); RED BLOOD CELL COUNT(AUTO) 4.08 MIL/uL (4.00-5.20); RED CELL DISTRIBUTION WIDTH 15.9 % (11.5-14.5)
[2018-06-24 05:50] LABS: ANION GAP 8 mmol/L (8-16); CALCIUM, TOTAL 9.3 mg/dL (8.8-10.5); CARBON DIOXIDE 31 mmol/L (22-29); CHLORIDE 105 mmol/L (98-107); CREATININE 0.85 mg/dL (0.60-1.30); GLOMERULAR FILTR. RATE CALC > 60 mL/min (>60); GLUCOSE,RANDOM 113 mg/dL (70-110); POTASSIUM 3.2 mmol/L (3.5-5.1); SODIUM SERUM 144 mmol/L (136-145); UREA NITROGEN, BLOOD 14 mg/dL (7-18)
[2018-06-24 05:56] LABS: ALANINE AMINOTRANSFERASE 19 U/L (12-78); ALKALINE PHOSPHATASE 71 U/L (46-116); ASPARTATE AMINOTRANSFERASE 21 U/L (15-37); BILIRUBIN,TOTAL 0.2 mg/dL (0.1-1.0); TOTAL PROTEIN, SERUM 7.2 g/dL (6.4-8.2)
[2018-06-24 05:58] LABS: B-TYPE NATRIURETIC PEPTIDE 18 pg/mL (0-100)
[2018-06-24] MEDS ORDERED: PredniSONE 20 MG TABLET PO ONE (06:15)
[2018-06-24] MEDS ORDERED: ALBUTEROL SULFATE HFA 90 MCG/PUFF 8 GM INHALER IH ONE (08:00)
[2018-06-24] MEDS ORDERED: IBUPROFEN 600 MG TABLET PO ONE (08:15)
[2018-06-24 08:34] VITALS: BP 124/64
== END 2018-06-24 08:37 | disposition home or self-care (01) ==
LOC: EMS 04:53
DX: J45.909 Unspecified asthma, uncomplicated (principal); I10 Essential (primary) hypertension; E78.00 Pure hypercholesterolemia, unspecified; Z79.899 Other long term (current) drug therapy; Z88.6 Allergy status to analgesic agent
CPT/HCPCS: 36415; 71045; 80053; 83880; 84484; 85025; 93005; 94640; 99284; J7512; J3535

== ENCOUNTER 2018-08-30 13:35 | Emergency (ER) | payer MEDICARE, OTHER ==
[~2018-08-30] VITALS: Ht 160 cm; Wt 106.4 kg
[2018-08-30] MEDS ORDERED: MethylPREDNISolone SOD SUCC 125 MG/2 ML VIAL IVP ONE (15:15)
[2018-08-30] MEDS ORDERED: FAMOTIDINE 10 MG/ML 2 ML VIAL IVP ONE (15:15)
[2018-08-30] MEDS ORDERED: DiphenhydrAMINE HCL 50 MG/ML VIAL IVP ONE (15:15)
[2018-08-30] MEDS ORDERED: ALBUTEROL SULFATE 2.5 MG/0.5 ML NEB SOLUTION NEB ONE (15:30)
[2018-08-30] MEDS ORDERED: KETOROLAC TROMETHAMINE 30 MG/ML VIAL IVP ONE (15:30)
[2018-08-30] MEDS ORDERED: 0.9% SODIUM CHLORIDE 10 ML SYRINGE IVP PRN (15:30)
[2018-08-30] MEDS ORDERED: IPRATROPIUM BROMIDE 0.5 MG/2.5 ML NEB SOLUTION NEB ONE (15:30)
[2018-08-30 16:31] LABS: BASOPHILS % (AUTO) 0.9 % (0.0-2.0); EOSINOPHILS % (AUTO) 2.4 % (1.0-6.0); HEMATOCRIT 37.8 % (36-46); HEMOGLOBIN 12.3 g/dL (12.0-16.0); LYMPHOCYTES # (AUTO) 2.5 K/uL (1.0-4.8); LYMPHOCYTES % (AUTO) 39.4 % (22.0-44.0); MEAN CORPUSCULAR HEMOGLOBIN 28.4 pg (26.0-34.0); MEAN CORPUSCULAR HGB CONC 32.6 G/dL (31.0-37.0); MEAN CORPUSCULAR VOLUME 87 fL (80-100); MONOCYTES # (AUTO) 0.6 K/uL (0.1-1.0); MONOCYTES % (AUTO) 8.7 % (2.0-9.0); NEUTROPHILS # (AUTO) 3.1 K/uL (1.8-7.7); NEUTROPHILS % (AUTO) 48.6 % (40.0-70.0); PLATELET COUNT (AUTO) 277 K/uL (150-450); RED BLOOD CELL COUNT(AUTO) 4.34 MIL/uL (4.00-5.20); RED CELL DISTRIBUTION WIDTH 15.8 % (11.5-14.5)
[2018-08-30 16:42] LABS: ANION GAP 9 mmol/L (8-16); CALCIUM, TOTAL 9.7 mg/dL (8.8-10.5); CARBON DIOXIDE 31 mmol/L (22-29); CHLORIDE 103 mmol/L (98-107); GLOMERULAR FILTR. RATE CALC > 60 mL/min (>60); GLUCOSE,RANDOM 141 mg/dL (70-110); POTASSIUM 3.4 mmol/L (3.5-5.1); SODIUM SERUM 143 mmol/L (136-145); UREA NITROGEN, BLOOD 10 mg/dL (7-18)
[2018-08-30 16:48] LABS: ALANINE AMINOTRANSFERASE 13 U/L (12-78); ALBUMIN 3.2 g/dL (3.4-5.0); ALKALINE PHOSPHATASE 89 U/L (46-116); ASPARTATE AMINOTRANSFERASE 16 U/L (15-37); BILIRUBIN,TOTAL 0.4 mg/dL (0.1-1.0); TOTAL PROTEIN, SERUM 7.5 g/dL (6.4-8.2)
[2018-08-30 16:51] LABS: B-TYPE NATRIURETIC PEPTIDE 17 pg/mL (0-100)
[2018-08-30] MEDS ORDERED: LEVOFLOXACIN 500 MG/D5% WATER 100 ML IV ONE (17:00)
[2018-08-30] MEDS ORDERED: POTASSIUM CHLORIDE 20 MEQ ER TABLET PO ONE (17:15)
[2018-08-30 17:16] LABS: LACTIC ACID 2.1 mmol/L (0.4-2.0)
[2018-08-30] MEDS ORDERED: SODIUM CHLORIDE 0.9% 1,000 ML IV ONE (17:30)
[2018-08-30 18:21] LABS: INFLUENZA TYPE A NEGATIVE FOR TYPE A (NEGATIVE); INFLUENZA TYPE B NEGATIVE FOR TYPE B (NEGATIVE)
[2018-08-30 19:09] VITALS: BP 11/60
== END 2018-08-30 19:45 | disposition home or self-care (01) ==
LOC: EMS 13:36
DX: J18.9 Pneumonia, unspecified organism (principal); J45.909 Unspecified asthma, uncomplicated; I10 Essential (primary) hypertension; E78.00 Pure hypercholesterolemia, unspecified; Z88.6 Allergy status to analgesic agent
CPT/HCPCS: 36415; 71045; 80053; 83605; 83880; 84484; 85025; 87040; 87804; 93005; 94640; 96365; 96375; 99285; J1885; J1956; J7030

== ENCOUNTER 2018-09-22 11:52 | Emergency (ER) | payer MEDICARE, OTHER ==
[~2018-09-22] VITALS: Ht 167.6 cm; Wt 109.1 kg
[2018-09-22 13:42] LABS: BASOPHILS % (AUTO) 0.5 % (0.0-2.0); EOSINOPHILS % (AUTO) 2.7 % (1.0-6.0); LYMPHOCYTES # (AUTO) 2.7 K/uL (1.0-4.8); LYMPHOCYTES % (AUTO) 49.7 % (22.0-44.0); MEAN CORPUSCULAR HEMOGLOBIN 28.1 pg (26.0-34.0); MEAN CORPUSCULAR HGB CONC 32.6 G/dL (31.0-37.0); MEAN CORPUSCULAR VOLUME 86 fL (80-100); MONOCYTES # (AUTO) 0.5 K/uL (0.1-1.0); MONOCYTES % (AUTO) 9.3 % (2.0-9.0); NEUTROPHILS % (AUTO) 37.8 % (40.0-70.0); PLATELET COUNT (AUTO) 285 K/uL (150-450); RED BLOOD CELL COUNT(AUTO) 4.29 MIL/uL (4.00-5.20); RED CELL DISTRIBUTION WIDTH 15.5 % (11.5-14.5)
[2018-09-22 13:48] LABS: APPEARANCE,URINE CLEAR (CLEAR); BILIRUBIN,URINE NEGATIVE (NEGATIVE); GLUCOSE, URINE (UA) NEGATIVE (NEGATIVE); KETONES,URINE NEGATIVE (NEGATIVE); LEUKOCYTE ESTERASE ,URINE NEGATIVE (NEGATIVE); NITRATE,URINE NEGATIVE (NEGATIVE); OCCULT BLOOD,URINE NEGATIVE (NEGATIVE); PH,URINE 5.5 (5.0-8.0); UROBILINOGEN,URINE 0.2 mg/dL (<=1.0)
[2018-09-22 13:51] LABS: ANION GAP 9 mmol/L (8-16); CALCIUM, TOTAL 9.6 mg/dL (8.8-10.5); CARBON DIOXIDE 29 mmol/L (22-29); CHLORIDE 106 mmol/L (98-107); CREATININE 1.01 mg/dL (0.60-1.30); GLOMERULAR FILTR. RATE CALC > 60 mL/min (>60); GLUCOSE,RANDOM 87 mg/dL (70-110); POTASSIUM 3.4 mmol/L (3.5-5.1); SODIUM SERUM 144 mmol/L (136-145); UREA NITROGEN, BLOOD 22 mg/dL (7-18)
[2018-09-22 13:58] LABS: PROTEIN,URINE NEGATIVE (NEGATIVE)
[2018-09-22 14:06] LABS: B-TYPE NATRIURETIC PEPTIDE 12 pg/mL (0-100)
[2018-09-22 14:16] LABS: ALANINE AMINOTRANSFERASE 16 U/L (12-78); ALBUMIN 3.3 g/dL (3.4-5.0); ALKALINE PHOSPHATASE 82 U/L (46-116); ASPARTATE AMINOTRANSFERASE 14 U/L (15-37); BILIRUBIN,TOTAL 0.2 mg/dL (0.1-1.0); CREATINE KINASE, TOTAL ONLY 97 U/L (26-192); TOTAL PROTEIN, SERUM 7.5 g/dL (6.4-8.2)
[2018-09-22] MEDS ORDERED: CYCLOBENZAPRINE HCL 10 MG TABLET PO ONE (14:45)
[2018-09-22] MEDS ORDERED: KETOROLAC TROMETHAMINE 60 MG/2 ML VIAL IM ONE (14:45)
[2018-09-22 15:20] VITALS: BP 131/50
== END 2018-09-22 15:40 | disposition home or self-care (01) ==
LOC: EMS 11:52
DX: S39.012A Strain of muscle, fascia and tendon of lower back, initial encounter (principal); M25.561 Pain in right knee; M25.562 Pain in left knee; J45.909 Unspecified asthma, uncomplicated; I10 Essential (primary) hypertension; E78.00 Pure hypercholesterolemia, unspecified; Z79.899 Other long term (current) drug therapy; X58.XXXA Exposure to other specified factors, initial encounter; Y93.89 Activity, other specified; Y92.89 Other specified places as the place of occurrence of the external cause; Y99.8 Other external cause status
CPT/HCPCS: 36415; 71045; 80053; 81003; 82550; 83880; 84484; 85025; 93005; 96372; 99285; J1885

== ENCOUNTER 2018-11-27 14:56 | Emergency (ER) | payer MEDICARE, OTHER ==
[~2018-11-27] VITALS: Ht 160 cm; Wt 100.0 kg
[2018-11-27] MEDS ORDERED: TOPI25 PO (15:10)
[2018-11-27] MEDS ORDERED: METF-960 PO (15:10)
[2018-11-27 15:19] LABS: GLUCOSE,POINT OF CARE 106 MG/DL (70-110)
[2018-11-27 17:01] LABS: EOSINOPHILS % (AUTO) 2.7 % (1.0-6.0); HEMATOCRIT 37.8 % (36-46); HEMOGLOBIN 12.1 g/dL (12.0-16.0); LYMPHOCYTES # (AUTO) 2.6 K/uL (1.0-4.8); MEAN CORPUSCULAR VOLUME 88 fL (80-100); MONOCYTES # (AUTO) 0.4 K/uL (0.1-1.0); MONOCYTES % (AUTO) 6.9 % (2.0-9.0); NEUTROPHILS # (AUTO) 2.5 K/uL (1.8-7.7); NEUTROPHILS % (AUTO) 43.4 % (40.0-70.0); PLATELET COUNT (AUTO) 270 K/uL (150-450); RED BLOOD CELL COUNT(AUTO) 4.31 MIL/uL (4.00-5.20); RED CELL DISTRIBUTION WIDTH 15.9 % (11.5-14.5)
[2018-11-27 17:12] LABS: ANION GAP 14 mmol/L (8-16); CALCIUM, TOTAL 9.6 mg/dL (8.8-10.5); CARBON DIOXIDE 31 mmol/L (22-29); CHLORIDE 107 mmol/L (98-107); CREATININE 1.01 mg/dL (0.60-1.30); GLOMERULAR FILTR. RATE CALC > 60 mL/min (>60); GLUCOSE,RANDOM 67 mg/dL (70-110); POTASSIUM 3.7 mmol/L (3.5-5.1); SODIUM SERUM 152 mmol/L (136-145); UREA NITROGEN, BLOOD 15 mg/dL (7-18)
[2018-11-27 17:20] LABS: ALANINE AMINOTRANSFERASE 12 U/L (12-78); ALBUMIN 3.1 g/dL (3.4-5.0); ALKALINE PHOSPHATASE 88 U/L (46-116); ASPARTATE AMINOTRANSFERASE 14 U/L (15-37); BILIRUBIN,TOTAL 0.2 mg/dL (0.1-1.0); LIPASE 82 U/L (73-393); TOTAL PROTEIN, SERUM 7.5 g/dL (6.4-8.2)
[2018-11-27 17:29] LABS: B-TYPE NATRIURETIC PEPTIDE 29 pg/mL (0-100)
[2018-11-27] MEDS ORDERED: KETOROLAC TROMETHAMINE 30 MG/ML VIAL IVP ONE (17:30)
[2018-11-27] MEDS ORDERED: SODIUM CHLORIDE 0.9% 1,000 ML IV ONE (17:45)
[2018-11-27 18:53] VITALS: BP 142/68
== END 2018-11-27 20:06 | disposition home or self-care (01) ==
LOC: EMS 14:56
DX: M25.562 Pain in left knee (principal); M25.561 Pain in right knee; E11.9 Type 2 diabetes mellitus without complications; E78.00 Pure hypercholesterolemia, unspecified; I11.0 Hypertensive heart disease with heart failure; I50.9 Heart failure, unspecified; J45.909 Unspecified asthma, uncomplicated; F17.210 Nicotine dependence, cigarettes, uncomplicated; Z86.718 Personal history of other venous thrombosis and embolism; Z79.899 Other long term (current) drug therapy
CPT/HCPCS: 36415; 71045; 73562; 80053; 82962; 83690; 83880; 84484; 85025; 93005; 96374; 99285; J1885; J7030

== ENCOUNTER → 2019-04-01 | Outpatient (CLI) | payer MEDICARE, OTHER ==
[~2019-04-01] MED LIST changes: +METF-960 PO; +TOPI25 PO
== END | disposition home or self-care (01) ==
LOC: RADPV 12:47
PROVIDERS: ATTEND Family Medicine
DX: J44.9 Chronic obstructive pulmonary disease, unspecified (principal); I70.0 Atherosclerosis of aorta

== ENCOUNTER 2019-04-07 23:29 | Emergency (ER) | payer MEDICARE, OTHER ==
[~2019-04-07] VITALS: Ht 160 cm; Wt 104.5 kg
[2019-04-08 00:01] LABS: GLUCOSE,POINT OF CARE 140 MG/DL (70-110)
[2019-04-08 00:36] LABS: BASOPHILS % (AUTO) 0.8 % (0.0-2.0); EOSINOPHILS % (AUTO) 0.2 % (1.0-6.0); HEMATOCRIT 37.2 % (36-46); HEMOGLOBIN 12.3 g/dL (12.0-16.0); LYMPHOCYTES # (AUTO) 1.3 K/uL (1.0-4.8); LYMPHOCYTES % (AUTO) 17.9 % (22.0-44.0); MEAN CORPUSCULAR HEMOGLOBIN 29.4 pg (26.0-34.0); MEAN CORPUSCULAR HGB CONC 33.2 G/dL (31.0-37.0); MEAN CORPUSCULAR VOLUME 89 fL (80-100); MONOCYTES # (AUTO) 0.2 K/uL (0.1-1.0); MONOCYTES % (AUTO) 2.7 % (2.0-9.0); NEUTROPHILS # (AUTO) 5.8 K/uL (1.8-7.7); NEUTROPHILS % (AUTO) 78.4 % (40.0-70.0); PLATELET COUNT (AUTO) 259 K/uL (150-450); RED CELL DISTRIBUTION WIDTH 15.7 % (11.5-14.5)
[2019-04-08 00:48] LABS: ANION GAP 0 mmol/L (8-16); CALCIUM, TOTAL 9.4 mg/dL (8.8-10.5); CARBON DIOXIDE 36 mmol/L (22-29); CHLORIDE 106 mmol/L (98-107); GLOMERULAR FILTR. RATE CALC > 60 mL/min (>60); GLUCOSE,RANDOM 158 mg/dL (70-110); SODIUM SERUM 142 mmol/L (136-145); UREA NITROGEN, BLOOD 19 mg/dL (7-18)
[2019-04-08 00:52] LABS: ALANINE AMINOTRANSFERASE 14 U/L (12-78); ALKALINE PHOSPHATASE 84 U/L (46-116); ASPARTATE AMINOTRANSFERASE 11 U/L (15-37); BILIRUBIN,TOTAL 0.1 mg/dL (0.1-1.0); TOTAL PROTEIN, SERUM 7.2 g/dL (6.4-8.2)
[2019-04-08 00:57] LABS: B-TYPE NATRIURETIC PEPTIDE 16 pg/mL (0-100)
[2019-04-08] MEDS ORDERED: IPRATROPIUM BROMIDE 0.5 MG/2.5 ML NEB SOLUTION NEB ONE (01:30)
[2019-04-08] MEDS ORDERED: MethylPREDNISolone SOD SUCC 125 MG/2 ML VIAL IVP ONE (01:30)
[2019-04-08] MEDS ORDERED: GuaiFENesin/D-METHORPHAN [SUGAR-FREE] 200-20MG/10 ML SYRUP UDCUP PO ONE (01:30)
[2019-04-08] MEDS ORDERED: ALBUTEROL SULFATE 2.5 MG/0.5 ML NEB SOLUTION NEB ONE (01:30)
[2019-04-08] MEDS ORDERED: ACETAMINOPHEN 500 MG TABLET PO ONE (01:30)
[2019-04-08 02:13] VITALS: BP 144/72
[2019-04-08 02:20] LABS: APPEARANCE,URINE CLEAR (CLEAR); BILIRUBIN,URINE NEGATIVE (NEGATIVE); GLUCOSE, URINE (UA) NEGATIVE (NEGATIVE); KETONES,URINE NEGATIVE (NEGATIVE); LEUKOCYTE ESTERASE ,URINE NEGATIVE (NEGATIVE); NITRATE,URINE NEGATIVE (NEGATIVE); OCCULT BLOOD,URINE NEGATIVE (NEGATIVE); PH,URINE 7.5 (5.0-8.0); PROTEIN,URINE SEE CONFIRM (NEGATIVE)
[2019-04-08 02:27] LABS: BACTERIA,URINE None Seen /HPF (None Seen); RBC,URINE None Seen /HPF (0-2); SQUAMOUS EPITHELIAL CELL,UR Few /LPF (None Seen); SULFOSALICYLIC ACID,URINE 1+ (Negative); WBC,URINE 0-2 /HPF (0-5)
== END 2019-04-08 03:56 | disposition home or self-care (01) ==
LOC: EMS 23:29
DX: J44.1 Chronic obstructive pulmonary disease with (acute) exacerbation (principal); E11.9 Type 2 diabetes mellitus without complications; E78.00 Pure hypercholesterolemia, unspecified; I11.0 Hypertensive heart disease with heart failure; I50.9 Heart failure, unspecified; F17.210 Nicotine dependence, cigarettes, uncomplicated; Z86.718 Personal history of other venous thrombosis and embolism; Z79.899 Other long term (current) drug therapy; Z79.84 Long term (current) use of oral hypoglycemic drugs
CPT/HCPCS: 36415; 71045; 80053; 81001; 82962; 83880; 84484; 85025; 93005; 94640; 96374; 99284; J2930

== ENCOUNTER 2019-06-19 21:40 | Emergency (ER) | payer MEDICARE, OTHER ==
[~2019-06-19] VITALS: Ht 160 cm; Wt 109.1 kg
[2019-06-19] MEDS ORDERED: IPRATROPIUM BROMIDE 0.5 MG/2.5 ML NEB SOLUTION NEB ONE (22:00)
[2019-06-19] MEDS ORDERED: ALBUTEROL SULFATE 2.5 MG/0.5 ML NEB SOLUTION NEB ONE (22:00)
[2019-06-19 22:26] LABS: BASOPHILS % (AUTO) 0.7 % (0.0-2.0); EOSINOPHILS % (AUTO) 2.1 % (1.0-6.0); HEMOGLOBIN 12.1 g/dL (12.0-16.0); LYMPHOCYTES # (AUTO) 3.9 K/uL (1.0-4.8); LYMPHOCYTES % (AUTO) 44.2 % (22.0-44.0); MEAN CORPUSCULAR HEMOGLOBIN 29.1 pg (26.0-34.0); MEAN CORPUSCULAR HGB CONC 32.7 G/dL (31.0-37.0); MEAN CORPUSCULAR VOLUME 89 fL (80-100); MONOCYTES # (AUTO) 0.5 K/uL (0.1-1.0); MONOCYTES % (AUTO) 5.4 % (2.0-9.0); NEUTROPHILS # (AUTO) 4.2 K/uL (1.8-7.7); NEUTROPHILS % (AUTO) 47.6 % (40.0-70.0); PLATELET COUNT (AUTO) 280 K/uL (150-450); RED BLOOD CELL COUNT(AUTO) 4.16 MIL/uL (4.00-5.20); RED CELL DISTRIBUTION WIDTH 15.2 % (11.5-14.5)
[2019-06-19 22:38] LABS: ANION GAP 5 mmol/L (8-16); CALCIUM, TOTAL 9.5 mg/dL (8.8-10.5); CARBON DIOXIDE 32 mmol/L (22-29); CHLORIDE 108 mmol/L (98-107); CREATININE 0.96 mg/dL (0.60-1.30); GLOMERULAR FILTR. RATE CALC > 60 mL/min (>60); GLUCOSE,RANDOM 113 mg/dL (70-110); POTASSIUM 3.4 mmol/L (3.5-5.1); SODIUM SERUM 145 mmol/L (136-145); UREA NITROGEN, BLOOD 18 mg/dL (7-18)
[2019-06-19 22:47] LABS: B-TYPE NATRIURETIC PEPTIDE 16 pg/mL (0-100)
[2019-06-19 22:48] LABS: ALANINE AMINOTRANSFERASE 20 U/L (12-78); ALBUMIN 3.1 g/dL (3.4-5.0); ALKALINE PHOSPHATASE 93 U/L (46-116); ASPARTATE AMINOTRANSFERASE 18 U/L (15-37); BILIRUBIN,TOTAL 0.1 mg/dL (0.1-1.0)
[2019-06-19] MEDS ORDERED: 0.9% SODIUM CHLORIDE 5 ML NEB SOLUTION NEB ONE (23:56)
[2019-06-20] MEDS ORDERED: PredniSONE 20 MG TABLET PO ONE (00:30)
[2019-06-20 01:49] LABS: INFLUENZA TYPE A NEGATIVE FOR TYPE A (NEGATIVE); INFLUENZA TYPE B NEGATIVE FOR TYPE B (NEGATIVE)
[2019-06-20] MEDS ORDERED: ALBUTEROL SULFATE HFA 90 MCG/PUFF 8 GM INHALER IH ONE (02:45)
[2019-06-20 02:56] VITALS: BP 146/78
== END 2019-06-20 03:17 | disposition home or self-care (01) ==
LOC: EMS 21:41
DX: J44.1 Chronic obstructive pulmonary disease with (acute) exacerbation (principal); E11.9 Type 2 diabetes mellitus without complications; E78.00 Pure hypercholesterolemia, unspecified; I11.0 Hypertensive heart disease with heart failure; I50.9 Heart failure, unspecified; F17.210 Nicotine dependence, cigarettes, uncomplicated; Z86.718 Personal history of other venous thrombosis and embolism; Z79.899 Other long term (current) drug therapy
CPT/HCPCS: 36415; 71046; 80053; 83880; 84484; 85025; 87804; 93005; 94640 ×2; 99284; J7512; J3535

== ENCOUNTER 2019-08-10 12:35 | Emergency (ER) | payer MEDICARE, OTHER ==
[~2019-08-10] VITALS: Ht 160 cm; Wt 109.1 kg
[~2019-08-10 12:35] MED LIST changes: +HYDR-1475 PO; -HYDR25TA PO; -LOSA25TA41 PO; +LOSA25TA71 PO; -METF-960 PO; -TOPI25 PO
[2019-08-10] MEDS ORDERED: 0.9% SODIUM CHLORIDE 10 ML SYRINGE IVP PRN (13:15)
[2019-08-10] MEDS ORDERED: SODIUM CHLORIDE 0.9% 1,000 ML IV ONE (13:15)
[2019-08-10] MEDS ORDERED: ACETAMINOPHEN 500 MG TABLET PO ONE (13:15)
[2019-08-10 14:07] LABS: BASOPHILS % (AUTO) 0.8 % (0.0-2.0); EOSINOPHILS % (AUTO) 0.9 % (1.0-6.0); HEMOGLOBIN 12.4 g/dL (12.0-16.0); LYMPHOCYTES # (AUTO) 1.3 K/uL (1.0-4.8); MEAN CORPUSCULAR HEMOGLOBIN 28.9 pg (26.0-34.0); MEAN CORPUSCULAR HGB CONC 32.6 G/dL (31.0-37.0); MEAN CORPUSCULAR VOLUME 89 fL (80-100); MONOCYTES # (AUTO) 0.5 K/uL (0.1-1.0); NEUTROPHILS # (AUTO) 2.9 K/uL (1.8-7.7); NEUTROPHILS % (AUTO) 60.3 % (40.0-70.0); PLATELET COUNT (AUTO) 204 K/uL (150-450); RED BLOOD CELL COUNT(AUTO) 4.28 MIL/uL (4.00-5.20); RED CELL DISTRIBUTION WIDTH 15.4 % (11.5-14.5)
[2019-08-10 14:14] LABS: ANION GAP 6 mmol/L (8-16); CALCIUM, TOTAL 9.3 mg/dL (8.8-10.5); CARBON DIOXIDE 32 mmol/L (22-29); CHLORIDE 103 mmol/L (98-107); GLOMERULAR FILTR. RATE CALC > 60 mL/min (>60); GLUCOSE,RANDOM 94 mg/dL (70-110); POTASSIUM 3.3 mmol/L (3.5-5.1); PROTHROMBIN TIME 10.3 SEC (9.4-11.6); SODIUM SERUM 141 mmol/L (136-145); UREA NITROGEN, BLOOD 10 mg/dL (7-18)
[2019-08-10 14:20] LABS: ALANINE AMINOTRANSFERASE 21 U/L (12-78); ALBUMIN 3.1 g/dL (3.4-5.0); ALKALINE PHOSPHATASE 88 U/L (46-116); ASPARTATE AMINOTRANSFERASE 23 U/L (15-37); BILIRUBIN,TOTAL 0.4 mg/dL (0.1-1.0); TOTAL PROTEIN, SERUM 7.4 g/dL (6.4-8.2)
[2019-08-10 14:22] LABS: INFLUENZA TYPE A NEGATIVE FOR TYPE A (NEGATIVE); INFLUENZA TYPE B NEGATIVE FOR TYPE B (NEGATIVE)
[2019-08-10 14:24] LABS: LACTIC ACID 0.6 mmol/L (0.4-2.0)
[2019-08-10 14:37] LABS: B-TYPE NATRIURETIC PEPTIDE 68 pg/mL (0-100)
[2019-08-10] MEDS ORDERED: IBUPROFEN 800 MG TABLET PO ONE (14:45)
[2019-08-10 15:22] LABS: APPEARANCE,URINE CLEAR (CLEAR); BILIRUBIN,URINE NEGATIVE (NEGATIVE); GLUCOSE, URINE (UA) NEGATIVE (NEGATIVE); KETONES,URINE NEGATIVE (NEGATIVE); LEUKOCYTE ESTERASE ,URINE NEGATIVE (NEGATIVE); NITRATE,URINE NEGATIVE (NEGATIVE); OCCULT BLOOD,URINE SMALL (NEGATIVE); PROTEIN,URINE SEE CONFIRM (NEGATIVE)
[2019-08-10 15:33] LABS: BACTERIA,URINE Rare /HPF (None Seen); RBC,URINE 0-2 /HPF (0-2); SQUAMOUS EPITHELIAL CELL,UR Few /LPF (None Seen); SULFOSALICYLIC ACID,URINE 3+ (Negative)
[2019-08-10 15:40] VITALS: BP 140/70
== END 2019-08-10 16:00 | disposition home or self-care (01) ==
LOC: EMS 12:38
DX: N39.0 Urinary tract infection, site not specified (principal); J11.1 Influenza due to unidentified influenza virus with other respiratory manifestations; M79.10 Myalgia, unspecified site; I11.0 Hypertensive heart disease with heart failure; I50.9 Heart failure, unspecified; E11.9 Type 2 diabetes mellitus without complications; J45.909 Unspecified asthma, uncomplicated; E78.00 Pure hypercholesterolemia, unspecified; F17.210 Nicotine dependence, cigarettes, uncomplicated
CPT/HCPCS: 36415; 71045; 80053; 81001; 83605; 83880; 84145; 84484; 85025; 85610; 87040; 87086; 87804; 93005; 99285; J7030

== ENCOUNTER 2019-09-28 23:13 | Emergency (ER) | payer MEDICARE, OTHER ==
[~2019-09-28] VITALS: Ht 162.6 cm; Wt 104.5 kg
[2019-09-29] MEDS ORDERED: ACETAMINOPHEN 325 MG TABLET PO ONE (00:15)
[2019-09-29] MEDS ORDERED: 0.9% SODIUM CHLORIDE 10 ML SYRINGE IVP PRN (00:15)
[2019-09-29] MEDS ORDERED: SODIUM CHLORIDE 0.9% 1,000 ML IV ONE (00:15)
[2019-09-29 01:17] LABS: BASOPHILS % (AUTO) 0.5 % (0.0-2.0); EOSINOPHILS % (AUTO) 0 % (1.0-6.0); HEMATOCRIT 38.5 % (36-46); HEMOGLOBIN 12.2 g/dL (12.0-16.0); LYMPHOCYTES # (AUTO) 1.5 K/uL (1.0-4.8); LYMPHOCYTES % (AUTO) 24.3 % (22.0-44.0); MEAN CORPUSCULAR HEMOGLOBIN 27.7 pg (26.0-34.0); MEAN CORPUSCULAR HGB CONC 31.7 G/dL (31.0-37.0); MEAN CORPUSCULAR VOLUME 87 fL (80-100); MONOCYTES # (AUTO) 0.5 K/uL (0.1-1.0); MONOCYTES % (AUTO) 7.6 % (2.0-9.0); NEUTROPHILS % (AUTO) 67.6 % (40.0-70.0); PLATELET COUNT (AUTO) 223 K/uL (150-450); RED BLOOD CELL COUNT(AUTO) 4.41 MIL/uL (4.00-5.20); RED CELL DISTRIBUTION WIDTH 15.8 % (11.5-14.5)
[2019-09-29 01:27] LABS: PROTHROMBIN TIME 10.2 SEC (9.4-11.6)
[2019-09-29 01:32] LABS: ANION GAP 2 mmol/L (8-16); CARBON DIOXIDE 31 mmol/L (22-29); CHLORIDE 102 mmol/L (98-107); CREATININE 0.94 mg/dL (0.60-1.30); GLOMERULAR FILTR. RATE CALC > 60 mL/min (>60); GLUCOSE,RANDOM 114 mg/dL (70-110); POTASSIUM 3.4 mmol/L (3.5-5.1); SODIUM SERUM 135 mmol/L (136-145); UREA NITROGEN, BLOOD 14 mg/dL (7-18)
[2019-09-29 01:38] LABS: ALANINE AMINOTRANSFERASE 22 U/L (12-78); ALBUMIN 3.2 g/dL (3.4-5.0); ALKALINE PHOSPHATASE 81 U/L (46-116); ASPARTATE AMINOTRANSFERASE 22 U/L (15-37); BILIRUBIN,TOTAL 0.2 mg/dL (0.1-1.0); TOTAL PROTEIN, SERUM 7.5 g/dL (6.4-8.2)
[2019-09-29] MEDS ORDERED: POTASSIUM CHLORIDE 20 MEQ ER TABLET PO ONE (02:00)
[2019-09-29] MEDS ORDERED: KETOROLAC TROMETHAMINE 30 MG/ML VIAL IVP ONE (02:00)
[2019-09-29 02:16] LABS: APPEARANCE,URINE CLEAR (CLEAR); BILIRUBIN,URINE NEGATIVE (NEGATIVE); GLUCOSE, URINE (UA) NEGATIVE (NEGATIVE); KETONES,URINE NEGATIVE (NEGATIVE); LEUKOCYTE ESTERASE ,URINE NEGATIVE (NEGATIVE); NITRATE,URINE NEGATIVE (NEGATIVE); OCCULT BLOOD,URINE TRACE (NEGATIVE); PROTEIN,URINE SEE CONFIRM (NEGATIVE)
[2019-09-29 02:30] LABS: INFLUENZA TYPE A NEGATIVE FOR TYPE A (NEGATIVE); INFLUENZA TYPE B NEGATIVE FOR TYPE B (NEGATIVE)
[2019-09-29 02:31] LABS: SULFOSALICYLIC ACID,URINE 4+ (Negative)
[2019-09-29 02:32] LABS: BACTERIA,URINE None Seen /HPF (None Seen); RBC,URINE 0-2 /HPF (0-2); SQUAMOUS EPITHELIAL CELL,UR Moderate /LPF (None Seen); WBC,URINE 0-2 /HPF (0-5)
[2019-09-29 02:45] VITALS: BP 115/55
== END 2019-09-29 03:22 | disposition home or self-care (01) ==
LOC: EMS 23:13
DX: U07.1 COVID-19 (principal); E87.6 Hypokalemia; J06.9 Acute upper respiratory infection, unspecified; M79.89 Other specified soft tissue disorders; F17.210 Nicotine dependence, cigarettes, uncomplicated; I11.0 Hypertensive heart disease with heart failure; I50.9 Heart failure, unspecified; E78.00 Pure hypercholesterolemia, unspecified; E11.9 Type 2 diabetes mellitus without complications
CPT/HCPCS: 36415; 71045; 80053; 81001; 83605; 85025; 85610; 87040; 87635; 87804; 93005; 96374; 99285; J1885; J7030

== ENCOUNTER 2019-10-01 21:24 | Inpatient (IN) | payer MEDICARE, OTHER ==
[~2019-10-01] VITALS: Ht 162.6 cm; Wt 107.7 kg
[2019-10-01] MEDS ORDERED: ACETAMINOPHEN 325 MG TABLET PO ONE (22:30)
[2019-10-01 22:44] LABS: BASOPHILS % (AUTO) 0.7 % (0.0-2.0); EOSINOPHILS % (AUTO) 0 % (1.0-6.0); HEMATOCRIT 38.9 % (36-46); HEMOGLOBIN 12.3 g/dL (12.0-16.0); LYMPHOCYTES # (AUTO) 1.4 K/uL (1.0-4.8); LYMPHOCYTES % (AUTO) 30.2 % (22.0-44.0); MEAN CORPUSCULAR HEMOGLOBIN 27.7 pg (26.0-34.0); MEAN CORPUSCULAR HGB CONC 31.8 G/dL (31.0-37.0); MEAN CORPUSCULAR VOLUME 87 fL (80-100); MONOCYTES # (AUTO) 0.3 K/uL (0.1-1.0); MONOCYTES % (AUTO) 6.7 % (2.0-9.0); NEUTROPHILS # (AUTO) 2.8 K/uL (1.8-7.7); NEUTROPHILS % (AUTO) 62.4 % (40.0-70.0); PLATELET COUNT (AUTO) 155 K/uL (150-450); RED BLOOD CELL COUNT(AUTO) 4.46 MIL/uL (4.00-5.20); RED CELL DISTRIBUTION WIDTH 15.8 % (11.5-14.5)
[2019-10-01 23:01] LABS: ANION GAP 11 mmol/L (8-16); CALCIUM, TOTAL 9.1 mg/dL (8.8-10.5); CARBON DIOXIDE 26 mmol/L (22-29); CHLORIDE 101 mmol/L (98-107); CREATININE 1.07 mg/dL (0.60-1.30); GLOMERULAR FILTR. RATE CALC > 60 mL/min (>60); GLUCOSE,RANDOM 108 mg/dL (70-110); POTASSIUM 3.3 mmol/L (3.5-5.1); SODIUM SERUM 138 mmol/L (136-145); UREA NITROGEN, BLOOD 14 mg/dL (7-18)
[2019-10-01 23:10] LABS: ALANINE AMINOTRANSFERASE 25 U/L (12-78); ALBUMIN 2.7 g/dL (3.4-5.0); ALKALINE PHOSPHATASE 79 U/L (46-116); ASPARTATE AMINOTRANSFERASE 43 U/L (15-37); BILIRUBIN,TOTAL 0.3 mg/dL (0.1-1.0); TOTAL PROTEIN, SERUM 7.3 g/dL (6.4-8.2)
[2019-10-01 23:13] LABS: B-TYPE NATRIURETIC PEPTIDE 13 pg/mL (0-100)
[2019-10-01] MEDS ORDERED: AZITHROMYCIN 500 MG TABLET PO ONE (23:15)
[2019-10-01] MEDS ORDERED: HYDROXYCHLOROQUINE SULFATE 200 MG TABLET PO ONE (23:15)
[2019-10-01] MEDS ORDERED: OXYC5 PO (23:23)
[2019-10-01] MEDS ORDERED: UMEC62.5 IH (23:23)
[2019-10-01] MEDS ORDERED: AZIT-84 PO (23:23)
[2019-10-01] MEDS ORDERED: BUDE10.2 IH (23:23)
[2019-10-01] MEDS ORDERED: CEPH-582 PO (23:23)
[2019-10-01] MEDS ORDERED: 0.9% SODIUM CHLORIDE 10 ML SYRINGE IVP PRN (23:30)
[2019-10-01] MEDS ORDERED: POTASSIUM CHLORIDE 20 MEQ ER TABLET PO ONE (23:30)
[2019-10-01] MEDS ORDERED: ACETAMINOPHEN 325 MG TABLET PO PRN (23:30)
[2019-10-01 23:55] LABS: C-REACTIVE PROTEIN QUANT 5.97 mg/dL (0.00-0.30); FERRITIN 247 ng/mL (8-252); LACTATE DEHYDROGENASE 274 U/L (81-234)
[2019-10-02] VITALS (7 sets, daily range): BP systolic 101–121; BP diastolic 46–72
[2019-10-02] MEDS ORDERED: POTASSIUM CHL 10 MEQ/WATER 50 ML IV PRN (08:30)
[2019-10-02] MEDS ORDERED: HYDROXYCHLOROQUINE SULFATE 200 MG TABLET PO ONE (08:30)
[2019-10-02] MEDS: DOCUSATE SODIUM 100 MG CAPSULE PO SCH ×2 (09:00→20:29)
[2019-10-02] MEDS: ASPIRIN 81 MG CHEWABLE TABLET PO SCH (09:32)
[2019-10-02] MEDS: FAMOTIDINE 20 MG TABLET PO SCH (09:32)
[2019-10-02] MEDS: ACETAMINOPHEN 325 MG TABLET PO PRN ×3 (12:35→21:17)
[2019-10-02] MEDS: HEPARIN SODIUM,PORCINE 5,000 UNITS/ML VIAL SQ SCH (16:21)
[2019-10-02] MEDS: ZINC GLUCONATE 50 MG TABLET PO SCH (20:28)
[2019-10-02] MEDS: HYDROXYCHLOROQUINE SULFATE 200 MG TABLET PO SCH (20:29)
[2019-10-02] MEDS ORDERED: SODIUM CHLORIDE 0.9% 1,000 ML ONE (20:47)
[2019-10-02] MEDS: AZITHROMYCIN 500 MG/NS 250 ML IV SCH (20:54)
[2019-10-03] VITALS: BP 115/66
[2019-10-03] MEDS: HEPARIN SODIUM,PORCINE 5,000 UNITS/ML VIAL SQ SCH ×4 (00:28→22:05)
[2019-10-03 04:00] VITALS: BP 140/72
[2019-10-03] MEDS: ACETAMINOPHEN 325 MG TABLET PO PRN ×2 (05:38→13:36)
[2019-10-03] MEDS: HYDROXYCHLOROQUINE SULFATE 200 MG TABLET PO SCH ×2 (09:04→22:05)
[2019-10-03] MEDS: ASPIRIN 81 MG CHEWABLE TABLET PO SCH (09:04)
[2019-10-03] MEDS: FAMOTIDINE 20 MG TABLET PO SCH (09:04)
[2019-10-03] MEDS: ZINC GLUCONATE 50 MG TABLET PO SCH ×2 (09:04→22:03)
[2019-10-03] MEDS: DOCUSATE SODIUM 100 MG CAPSULE PO SCH ×2 (09:04→22:04)
[2019-10-03 12:06] LABS: BASOPHILS % (AUTO) 0.5 % (0.0-2.0); EOSINOPHILS % (AUTO) 0 % (1.0-6.0); HEMATOCRIT 38.5 % (36-46); HEMOGLOBIN 12.3 g/dL (12.0-16.0); LYMPHOCYTES # (AUTO) 1.5 K/uL (1.0-4.8); LYMPHOCYTES % (AUTO) 24.7 % (22.0-44.0); MEAN CORPUSCULAR HEMOGLOBIN 28.1 pg (26.0-34.0); MEAN CORPUSCULAR HGB CONC 31.9 G/dL (31.0-37.0); MEAN CORPUSCULAR VOLUME 88 fL (80-100); MONOCYTES # (AUTO) 0.2 K/uL (0.1-1.0); MONOCYTES % (AUTO) 2.9 % (2.0-9.0); NEUTROPHILS # (AUTO) 4.3 K/uL (1.8-7.7); NEUTROPHILS % (AUTO) 71.9 % (40.0-70.0); PLATELET COUNT (AUTO) 178 K/uL (150-450); RED BLOOD CELL COUNT(AUTO) 4.37 MIL/uL (4.00-5.20); RED CELL DISTRIBUTION WIDTH 16.1 % (11.5-14.5)
[2019-10-03 12:24] LABS: PROTHROMBIN TIME 10.3 SEC (9.4-11.6)
[2019-10-03 12:38] LABS: ALBUMIN 2.7 g/dL (3.4-5.0); BILIRUBIN,TOTAL 0.2 mg/dL (0.1-1.0); C-REACTIVE PROTEIN QUANT 12.2 mg/dL (0.00-0.30); CREATININE 1.29 mg/dL (0.60-1.30); POTASSIUM 3.4 mmol/L (3.5-5.1); TOTAL PROTEIN, SERUM 7.8 g/dL (6.4-8.2)
[2019-10-03] MEDS: POTASSIUM CHLORIDE 20 MEQ ER TABLET PO PRN (15:27)
[2019-10-03 16:00] VITALS: BP 138/68
[2019-10-03] MEDS: ALBUTEROL SULFATE HFA 90 MCG/PUFF 8 GM INHALER IH PRN (17:23)
[2019-10-03] MEDS: AZITHROMYCIN 500 MG/NS 250 ML IV SCH (22:02)
[2019-10-03 23:34] VITALS: BP 108/73
[2019-10-04] MEDS: ZINC GLUCONATE 50 MG TABLET PO SCH ×2 (08:10→20:55)
[2019-10-04] MEDS: HEPARIN SODIUM,PORCINE 5,000 UNITS/ML VIAL SQ SCH ×3 (08:10→23:19)
[2019-10-04] MEDS: ASPIRIN 81 MG CHEWABLE TABLET PO SCH (08:11)
[2019-10-04] MEDS: HYDROXYCHLOROQUINE SULFATE 200 MG TABLET PO SCH ×2 (08:11→20:55)
[2019-10-04] MEDS: FAMOTIDINE 20 MG TABLET PO SCH (08:11)
[2019-10-04] MEDS: DOCUSATE SODIUM 100 MG CAPSULE PO SCH ×2 (08:11→20:55)
[2019-10-04] MEDS: ACETAMINOPHEN 325 MG TABLET PO PRN ×2 (08:12→20:55)
[2019-10-04 09:15] VITALS: BP 134/71
[2019-10-04] MEDS: ALBUTEROL SULFATE HFA 90 MCG/PUFF 8 GM INHALER IH PRN ×3 (09:57→23:18)
[2019-10-04 12:54] VITALS: BP 110/63
[2019-10-04 16:38] VITALS: BP 97/50
[2019-10-04 20:00] VITALS: BP 121/63
[2019-10-04 23:02] LABS: ABG A-A DIFF O2 607.8 mmHg (10-20.0); ABG BASE EXCESS 0.9 mmol/L (-2.0-3.0); ABG HCO3 25.1 mmol/L (22.0-26.0); ABG METHEMOGLOBIN 0.3 % (0.0-1.5); ABG OXYGEN CONTENT 16.5 mL/dL (15.0-23.0); ABG OXYHEMOGLOBIN 91.7 % (94.0-100.0); ABG PCO2 40 mmHg (35-45); ABG PH 7.418 (7.35-7.450); ABG TOTAL HEMOGLOBIN 12.8 G/dL (12.0-18.0); SOURCE, BLOOD GAS ARTERIAL; TEMPERATURE, FAHRENHEIT, BG 98.6 FAHREN (96.0-98.6)
[2019-10-04 23:03] LABS: SITE, BLOOD GAS RT RADIAL
[2019-10-04 23:04] LABS: O2 DEVICE,BLOOD GAS NON REBREATHER (ROOM AIR)
[2019-10-04] MEDS ORDERED: SODIUM CHLORIDE 0.9% 250 ML IV ONE (23:11)
[2019-10-04] MEDS: AZITHROMYCIN 500 MG/NS 250 ML IV SCH (23:19)
[2019-10-05] VITALS: BP 99/54
[2019-10-05 04:00] VITALS: BP 93/36
[2019-10-05 06:03] LABS: BASOPHILS % (AUTO) 0.5 % (0.0-2.0); EOSINOPHILS % (AUTO) 0 % (1.0-6.0); HEMATOCRIT 37.8 % (36-46); HEMOGLOBIN 12.2 g/dL (12.0-16.0); LYMPHOCYTES # (AUTO) 1.3 K/uL (1.0-4.8); LYMPHOCYTES % (AUTO) 15.7 % (22.0-44.0); MEAN CORPUSCULAR HEMOGLOBIN 28.1 pg (26.0-34.0); MEAN CORPUSCULAR HGB CONC 32.2 G/dL (31.0-37.0); MEAN CORPUSCULAR VOLUME 87 fL (80-100); MONOCYTES # (AUTO) 0.2 K/uL (0.1-1.0); MONOCYTES % (AUTO) 2.6 % (2.0-9.0); NEUTROPHILS # (AUTO) 6.7 K/uL (1.8-7.7); NEUTROPHILS % (AUTO) 81.2 % (40.0-70.0); PLATELET COUNT (AUTO) 212 K/uL (150-450); RED BLOOD CELL COUNT(AUTO) 4.33 MIL/uL (4.00-5.20)
[2019-10-05 07:01] LABS: CREATININE 1.31 mg/dL (0.60-1.30); POTASSIUM 4.1 mmol/L (3.5-5.1)
[2019-10-05 07:02] LABS: ALBUMIN 2.2 g/dL (3.4-5.0); BILIRUBIN,TOTAL 0.2 mg/dL (0.1-1.0); C-REACTIVE PROTEIN QUANT 15.5 mg/dL (0.00-0.30); TOTAL PROTEIN, SERUM 7.2 g/dL (6.4-8.2)
[2019-10-05] MEDS: ASPIRIN 81 MG CHEWABLE TABLET PO SCH (07:59)
[2019-10-05] MEDS: HEPARIN SODIUM,PORCINE 5,000 UNITS/ML VIAL SQ SCH ×2 (07:59→15:42)
[2019-10-05 08:00] VITALS: BP 138/105
[2019-10-05] MEDS: FAMOTIDINE 20 MG TABLET PO SCH (08:00)
[2019-10-05] MEDS: HYDROXYCHLOROQUINE SULFATE 200 MG TABLET PO SCH ×2 (08:00→21:30)
[2019-10-05] MEDS: ZINC SULFATE 220 MG CAPSULE PO SCH ×2 (08:00→21:30)
[2019-10-05] MEDS: DOCUSATE SODIUM 100 MG CAPSULE PO SCH ×2 (08:00→21:30)
[2019-10-05] MEDS: ACETAMINOPHEN 325 MG TABLET PO PRN (08:01)
[2019-10-05 12:00] VITALS: BP 138/52
[2019-10-05 16:00] VITALS: BP 131/41
[2019-10-05 20:00] VITALS: BP 124/62
[2019-10-05] MEDS: AZITHROMYCIN 500 MG/NS 250 ML IV SCH (21:31)
[2019-10-06 00:40] VITALS: BP 88/54
[2019-10-06] MEDS: HEPARIN SODIUM,PORCINE 5,000 UNITS/ML VIAL SQ SCH ×3 (01:29→18:58)
[2019-10-06 05:00] VITALS: BP 111/57
[2019-10-06 08:00] VITALS: BP 118/76
[2019-10-06] MEDS: DOCUSATE SODIUM 100 MG CAPSULE PO SCH ×2 (09:00→21:00)
[2019-10-06] MEDS: ZINC SULFATE 220 MG CAPSULE PO SCH ×2 (09:35→21:23)
[2019-10-06] MEDS: HYDROXYCHLOROQUINE SULFATE 200 MG TABLET PO SCH (09:35)
[2019-10-06] MEDS: ASPIRIN 81 MG CHEWABLE TABLET PO SCH (09:35)
[2019-10-06] MEDS: FAMOTIDINE 20 MG TABLET PO SCH (09:35)
[2019-10-06 12:00] VITALS: BP 123/69
[2019-10-06 12:14] LABS: BASOPHILS % (AUTO) 0.4 % (0.0-2.0); EOSINOPHILS % (AUTO) 0.1 % (1.0-6.0); HEMATOCRIT 40.4 % (36-46); HEMOGLOBIN 12.9 g/dL (12.0-16.0); LYMPHOCYTES # (AUTO) 0.8 K/uL (1.0-4.8); LYMPHOCYTES % (AUTO) 8.8 % (22.0-44.0); MEAN CORPUSCULAR HEMOGLOBIN 28.2 pg (26.0-34.0); MEAN CORPUSCULAR VOLUME 88 fL (80-100); MONOCYTES # (AUTO) 0.3 K/uL (0.1-1.0); MONOCYTES % (AUTO) 3.1 % (2.0-9.0); NEUTROPHILS # (AUTO) 8.5 K/uL (1.8-7.7); NEUTROPHILS % (AUTO) 87.6 % (40.0-70.0); PLATELET COUNT (AUTO) 268 K/uL (150-450); RED BLOOD CELL COUNT(AUTO) 4.59 MIL/uL (4.00-5.20); RED CELL DISTRIBUTION WIDTH 15.8 % (11.5-14.5)
[2019-10-06 20:00] VITALS: BP 148/73
[2019-10-07] VITALS: BP 141/62
[2019-10-07] MEDS: HEPARIN SODIUM,PORCINE 5,000 UNITS/ML VIAL SQ SCH ×4 (01:26→23:15)
[2019-10-07 04:00] VITALS: BP 157/103
[2019-10-07] MEDS: ACETAMINOPHEN 325 MG TABLET PO PRN ×2 (05:56→23:15)
[2019-10-07 06:02] LABS: BASOPHILS % (AUTO) 0.2 % (0.0-2.0); EOSINOPHILS % (AUTO) 0 % (1.0-6.0); HEMATOCRIT 40.4 % (36-46); HEMOGLOBIN 12.8 g/dL (12.0-16.0); LYMPHOCYTES # (AUTO) 0.8 K/uL (1.0-4.8); LYMPHOCYTES % (AUTO) 6.8 % (22.0-44.0); MEAN CORPUSCULAR HEMOGLOBIN 27.6 pg (26.0-34.0); MEAN CORPUSCULAR HGB CONC 31.6 G/dL (31.0-37.0); MEAN CORPUSCULAR VOLUME 87 fL (80-100); MONOCYTES # (AUTO) 0.3 K/uL (0.1-1.0); NEUTROPHILS # (AUTO) 10.5 K/uL (1.8-7.7); PLATELET COUNT (AUTO) 318 K/uL (150-450); RED BLOOD CELL COUNT(AUTO) 4.64 MIL/uL (4.00-5.20); RED CELL DISTRIBUTION WIDTH 15.4 % (11.5-14.5)
[2019-10-07 06:32] LABS: D-DIMER 2.32 mg/L FEU (0.00-0.50)
[2019-10-07 07:07] LABS: ALANINE AMINOTRANSFERASE 24 U/L (12-78); ALBUMIN 1.8 g/dL (3.4-5.0); ALKALINE PHOSPHATASE 91 U/L (46-116); ANION GAP 9 mmol/L (8-16); ASPARTATE AMINOTRANSFERASE 72 U/L (15-37); BILIRUBIN,TOTAL 0.3 mg/dL (0.1-1.0); CALCIUM, TOTAL 9.4 mg/dL (8.8-10.5); CARBON DIOXIDE 28 mmol/L (22-29); CHLORIDE 105 mmol/L (98-107); CREATININE 1.02 mg/dL (0.60-1.30); FERRITIN 939 ng/mL (8-252); GLOMERULAR FILTR. RATE CALC > 60 mL/min (>60); GLUCOSE,RANDOM 128 mg/dL (70-110); LACTATE DEHYDROGENASE 809 U/L (81-234); POTASSIUM 4.4 mmol/L (3.5-5.1); SODIUM SERUM 142 mmol/L (136-145); TOTAL PROTEIN, SERUM 7.6 g/dL (6.4-8.2); UREA NITROGEN, BLOOD 26 mg/dL (7-18)
[2019-10-07 07:24] LABS: C-REACTIVE PROTEIN QUANT 26.65 mg/dL (0.00-0.30)
[2019-10-07 08:00] VITALS: BP 100/55
[2019-10-07] MEDS: ASPIRIN 81 MG CHEWABLE TABLET PO SCH (08:23)
[2019-10-07] MEDS: FAMOTIDINE 20 MG TABLET PO SCH (08:23)
[2019-10-07] MEDS: POTASSIUM CHLORIDE 20 MEQ ER TABLET PO PRN (08:24)
[2019-10-07] MEDS: ZINC SULFATE 220 MG CAPSULE PO SCH ×2 (08:24→21:17)
[2019-10-07 12:00] VITALS: BP 108/70
[2019-10-07 16:00] VITALS: BP 125/70
[2019-10-07 20:00] VITALS: BP 113/94
[2019-10-07 20:00] LABS: GLUCOSE,POINT OF CARE 126 MG/DL (70-110)
[2019-10-07] MEDS: DOCUSATE SODIUM 100 MG CAPSULE PO SCH (21:00)
[2019-10-07] MEDS: ALBUTEROL SULFATE HFA 90 MCG/PUFF 8 GM INHALER IH PRN (22:46)
[2019-10-08 00:29] VITALS: BP 109/60
[2019-10-08 04:00] VITALS: BP 111/66
[2019-10-08] MEDS ORDERED: RAPID SEQUENCE KIT [RSI] 1 EACH KIT ONE (05:25)
[2019-10-08] MEDS ORDERED: SUCCINYLCHOLINE CHLORIDE 20 MG/ML 10 ML VIAL ONE (05:26)
[2019-10-08 05:32] LABS: ABG A-A DIFF O2 614.8 mmHg (10-20.0); ABG BASE EXCESS 0.9 mmol/L (-2.0-3.0); ABG CARBOXYHEMOGLOBIN 0.6 % (0.0-1.5); ABG HCO3 25.2 mmol/L (22.0-26.0); ABG METHEMOGLOBIN 0.3 % (0.0-1.5); ABG OXYGEN CONTENT 16.3 mL/dL (15.0-23.0); ABG OXYGEN SATURATION 86.6 % (95.0-98.0); ABG OXYHEMOGLOBIN 85.8 % (94.0-100.0); ABG PCO2 39 mmHg (35-45); ABG PH 7.426 (7.35-7.450); ABG TOTAL HEMOGLOBIN 13.5 G/dL (12.0-18.0); PO2, ARTERIAL BG 55.2 mmHg (79.0-87.0); SITE, BLOOD GAS RT RADIAL; SOURCE, BLOOD GAS ARTERIAL; TEMPERATURE, FAHRENHEIT, BG 101.1 FAHREN (96.0-98.6)
[2019-10-08 05:33] LABS: O2 DEVICE,BLOOD GAS NON REBREATHER (ROOM AIR)
[2019-10-08] MEDS ORDERED: ETOMIDATE 2 MG/ML 10 ML VIAL IVP ONE (05:45)
[2019-10-08] MEDS ORDERED: SUCCINYLCHOLINE CHLORIDE 20 MG/ML 10 ML VIAL IVP ONE (05:45)
[2019-10-08 06:17] LABS: BASOPHILS % (AUTO) 0.2 % (0.0-2.0); EOSINOPHILS % (AUTO) 0.2 % (1.0-6.0); HEMATOCRIT 40.2 % (36-46); HEMOGLOBIN 12.8 g/dL (12.0-16.0); LYMPHOCYTES # (AUTO) 0.9 K/uL (1.0-4.8); LYMPHOCYTES % (AUTO) 7.2 % (22.0-44.0); MEAN CORPUSCULAR HEMOGLOBIN 28.3 pg (26.0-34.0); MEAN CORPUSCULAR HGB CONC 31.9 G/dL (31.0-37.0); MEAN CORPUSCULAR VOLUME 89 fL (80-100); MONOCYTES # (AUTO) 0.3 K/uL (0.1-1.0); MONOCYTES % (AUTO) 2.9 % (2.0-9.0); NEUTROPHILS # (AUTO) 10.6 K/uL (1.8-7.7); PLATELET COUNT (AUTO) 318 K/uL (150-450); RED BLOOD CELL COUNT(AUTO) 4.53 MIL/uL (4.00-5.20); RED CELL DISTRIBUTION WIDTH 15.7 % (11.5-14.5)
[2019-10-08] MEDS ORDERED: SODIUM CHLORIDE 0.9% 500 ML IV ONE ×2 (06:47→20:11)
[2019-10-08 06:48] LABS: ALBUMIN 1.7 g/dL (3.4-5.0); BILIRUBIN,TOTAL 0.6 mg/dL (0.1-1.0); CALCIUM, TOTAL 9.7 mg/dL (8.8-10.5); CREATININE 1.21 mg/dL (0.60-1.30); TOTAL PROTEIN, SERUM 7.9 g/dL (6.4-8.2)
[2019-10-08 07:03] LABS: NEUTROPHILS % (AUTO) 89.5 % (40.0-70.0)
[2019-10-08 07:45] LABS: C-REACTIVE PROTEIN QUANT 27.54 mg/dL (0.00-0.30)
[2019-10-08] MEDS: PROPOFOL 1000 MG/ISO-OSM 100 ML IV PRN ×5 (07:55→21:31)
[2019-10-08 08:00] VITALS: BP 105/65
[2019-10-08 08:22] LABS: ABG A-A DIFF O2 394.6 mmHg (10-20.0); ABG BASE EXCESS -0.6 mmol/L (-2.0-3.0); ABG CARBOXYHEMOGLOBIN 0.5 % (0.0-1.5); ABG HCO3 23.1 mmol/L (22.0-26.0); ABG OXYGEN CONTENT 19.1 mL/dL (15.0-23.0); ABG OXYGEN SATURATION 99.5 % (95.0-98.0); ABG PCO2 60 mmHg (35-45); ABG PH 7.259 (7.35-7.450); ABG TOTAL HEMOGLOBIN 13.3 G/dL (12.0-18.0); SITE, BLOOD GAS ARTERIAL LINE; SOURCE, BLOOD GAS ARTERIAL; TEMPERATURE, FAHRENHEIT, BG 98.6 FAHREN (96.0-98.6)
[2019-10-08 08:23] LABS: O2 DEVICE,BLOOD GAS VENTILATOR (ROOM AIR); VENT MODE, BG APRV (ROOM AIR); VT, ABG 425 ml
[2019-10-08 08:24] LABS: SPONTANEOUS VT, BG 425 ml
[2019-10-08] MEDS: DOCUSATE SODIUM 100 MG CAPSULE PO SCH ×2 (09:00→20:16)
[2019-10-08] MEDS: FAMOTIDINE 20 MG TABLET PO SCH (09:01)
[2019-10-08] MEDS: ZINC SULFATE 220 MG CAPSULE PO SCH ×2 (09:01→20:16)
[2019-10-08] MEDS: ASPIRIN 81 MG CHEWABLE TABLET PO SCH (09:01)
[2019-10-08] MEDS: HEPARIN SODIUM,PORCINE 5,000 UNITS/ML VIAL SQ SCH ×3 (09:01→23:27)
[2019-10-08] MEDS: ALBUMIN HUMAN 25%-25GM/100ML 100 ML IV SCH ×2 (10:50→16:55)
[2019-10-08] MEDS: PHENYLEPHRINE 200 MG/D5%-WATER 250 ML IV PRN ×2 (10:50→15:53)
[2019-10-08 11:02] LABS: ABG BASE EXCESS -2.5 mmol/L (-2.0-3.0); ABG CARBOXYHEMOGLOBIN 0.3 % (0.0-1.5); ABG HCO3 22.6 mmol/L (22.0-26.0); ABG METHEMOGLOBIN 0.3 % (0.0-1.5); ABG OXYGEN CONTENT 17.7 mL/dL (15.0-23.0); ABG OXYGEN SATURATION 99.3 % (95.0-98.0); ABG OXYHEMOGLOBIN 98.7 % (94.0-100.0); ABG PCO2 40 mmHg (35-45); ABG PH 7.371 (7.35-7.450); ABG TOTAL HEMOGLOBIN 12.4 G/dL (12.0-18.0); O2 DEVICE,BLOOD GAS VENTILATOR (ROOM AIR); PO2, ARTERIAL BG 218.8 mmHg (79.0-87.0); SITE, BLOOD GAS ARTERIAL LINE; SOURCE, BLOOD GAS ARTERIAL; TEMPERATURE, FAHRENHEIT, BG 98.6 FAHREN (96.0-98.6)
[2019-10-08 11:03] LABS: VENT MODE, BG APRV (ROOM AIR)
[2019-10-08 11:04] LABS: SPONTANEOUS VT, BG 485 ml
[2019-10-08 11:13] LABS: D-DIMER 4.6 mg/L FEU (0.00-0.50)
[2019-10-08 12:00] VITALS: BP 151/50
[2019-10-08] MEDS: ACETAMINOPHEN 325 MG TABLET PO PRN ×2 (15:15→20:26)
[2019-10-08 16:00] VITALS: BP 82/45
[2019-10-08] MEDS ORDERED: *CLINICAL-CEFEPIME DOSING CLINICAL ONE (18:00)
[2019-10-08] MEDS ORDERED: *CLINICAL-RX DOSING [ENTER DRUG IN COMMENTS] CLINICAL ONE (18:45)
[2019-10-08] MEDS ORDERED: TOCILIZUMAB 800 MG in SODIUM CHLORIDE 0.9% 60 ML IV ONE ×4 (19:00)
[2019-10-08] MEDS ORDERED: TOCILIZUMAB 800 MG in SODIUM CHLORIDE 0.9% 100 ML IV ONE (19:00)
[2019-10-08 20:00] VITALS: BP 147/60
[2019-10-08] MEDS ORDERED: SODIUM CHLORIDE 0.9% 250 ML IV ONE (20:10)
[2019-10-08] MEDS: CEFEPIME HCL 2 GM in DEXTROSE 5%-WATER 50 ML IV SCH (20:16)
[2019-10-08] MEDS ORDERED: DAPTOMYCIN 500 MG in SODIUM CHLORIDE 0.9% 50 ML IV SCH (21:00)
[2019-10-08 23:52] LABS: APPEARANCE,URINE CLOUDY (CLEAR); BILIRUBIN,URINE NEGATIVE (NEGATIVE); GLUCOSE, URINE (UA) NEGATIVE (NEGATIVE); KETONES,URINE NEGATIVE (NEGATIVE); LEUKOCYTE ESTERASE ,URINE NEGATIVE (NEGATIVE); NITRATE,URINE NEGATIVE (NEGATIVE); OCCULT BLOOD,URINE MODERATE (NEGATIVE); PH,URINE 5.5 (5.0-8.0); PROTEIN,URINE SEE CONFIRM (NEGATIVE); UROBILINOGEN,URINE 0.2 mg/dL (<=1.0)
[2019-10-09] VITALS (7 sets, daily range): BP systolic 111–162; BP diastolic 53–68
[2019-10-09 00:05] LABS: BACTERIA,URINE Moderate /HPF (None Seen); SQUAMOUS EPITHELIAL CELL,UR Moderate /LPF (None Seen)
[2019-10-09 00:07] LABS: SULFOSALICYLIC ACID,URINE 4+ (Negative)
[2019-10-09] MEDS: ALBUMIN HUMAN 25%-25GM/100ML 100 ML IV SCH ×3 (02:01→17:53)
[2019-10-09] MEDS: PROPOFOL 1000 MG/ISO-OSM 100 ML IV PRN ×7 (02:01→22:08)
[2019-10-09 06:44] LABS: BASOPHILS % (AUTO) 0.3 % (0.0-2.0); EOSINOPHILS % (AUTO) 1.4 % (1.0-6.0); HEMATOCRIT 29.6 % (36-46); HEMOGLOBIN 9.5 g/dL (12.0-16.0); LYMPHOCYTES # (AUTO) 1.4 K/uL (1.0-4.8); LYMPHOCYTES % (AUTO) 16.7 % (22.0-44.0); MEAN CORPUSCULAR HEMOGLOBIN 27.9 pg (26.0-34.0); MEAN CORPUSCULAR VOLUME 87 fL (80-100); MONOCYTES # (AUTO) 0.2 K/uL (0.1-1.0); MONOCYTES % (AUTO) 2.3 % (2.0-9.0); NEUTROPHILS # (AUTO) 6.8 K/uL (1.8-7.7); NEUTROPHILS % (AUTO) 79.3 % (40.0-70.0); PLATELET COUNT (AUTO) 309 K/uL (150-450); RED BLOOD CELL COUNT(AUTO) 3.38 MIL/uL (4.00-5.20); RED CELL DISTRIBUTION WIDTH 15.6 % (11.5-14.5)
[2019-10-09 06:52] LABS: D-DIMER 8.72 mg/L FEU (0.00-0.50)
[2019-10-09 06:54] LABS: ALBUMIN 2.6 g/dL (3.4-5.0); BILIRUBIN,TOTAL 1.2 mg/dL (0.1-1.0); CALCIUM, TOTAL 9.3 mg/dL (8.8-10.5); CREATININE 3.74 mg/dL (0.60-1.30); POTASSIUM 4.3 mmol/L (3.5-5.1); TOTAL PROTEIN, SERUM 7.2 g/dL (6.4-8.2)
[2019-10-09 07:24] LABS: C-REACTIVE PROTEIN QUANT 34.11 mg/dL (0.00-0.30)
[2019-10-09] MEDS: HEPARIN SODIUM,PORCINE 5,000 UNITS/ML VIAL SQ SCH ×2 (08:44→17:53)
[2019-10-09] MEDS: CEFEPIME HCL 2 GM in DEXTROSE 5%-WATER 50 ML IV SCH (08:44)
[2019-10-09] MEDS: ZINC SULFATE 220 MG CAPSULE PO SCH ×2 (08:45→20:09)
[2019-10-09] MEDS: DOCUSATE SODIUM 100 MG CAPSULE PO SCH ×2 (08:45→20:10)
[2019-10-09] MEDS: ASPIRIN 81 MG CHEWABLE TABLET PO SCH (08:45)
[2019-10-09] MEDS: FAMOTIDINE 20 MG TABLET PO SCH (08:45)
[2019-10-09 11:32] LABS: SITE, BLOOD GAS ARTERIAL LINE; SOURCE, BLOOD GAS ARTERIAL; TEMPERATURE, FAHRENHEIT, BG 98.6 FAHREN (96.0-98.6)
[2019-10-09 11:33] LABS: ABG CARBOXYHEMOGLOBIN 0.3 % (0.0-1.5); ABG METHEMOGLOBIN 0.3 % (0.0-1.5); ABG PCO2 37 mmHg (35-45); ABG PH 7.347 (7.35-7.450); ABG TOTAL HEMOGLOBIN 11.5 G/dL (12.0-18.0); PO2, ARTERIAL BG 76.3 mmHg (79.0-87.0)
[2019-10-09 11:34] LABS: ABG OXYGEN CONTENT 15.2 mL/dL (15.0-23.0); ABG OXYGEN SATURATION 94.1 % (95.0-98.0); ABG OXYHEMOGLOBIN 93.5 % (94.0-100.0)
[2019-10-09 11:35] LABS: O2 DEVICE,BLOOD GAS VENTILATOR (ROOM AIR)
[2019-10-09 11:36] LABS: ABG BASE EXCESS -5.9 mmol/L (-2.0-3.0); VENT MODE, BG APRV (ROOM AIR)
[2019-10-09] MEDS ORDERED: ALBUMIN HUMAN 5%-12.5GM/250ML 250 ML IV ONE (16:30)
[2019-10-09] MEDS ORDERED: HEPARIN SODIUM,PORCINE 1,000 UNITS/ML VIAL ONE (17:08)
[2019-10-09] MEDS: PHENYLEPHRINE 200 MG/D5%-WATER 250 ML IV PRN (18:27)
[2019-10-09 19:33] LABS: ABG BASE EXCESS -5.7 mmol/L (-2.0-3.0); ABG CARBOXYHEMOGLOBIN 0.5 % (0.0-1.5); ABG HCO3 19.7 mmol/L (22.0-26.0); ABG METHEMOGLOBIN 0.3 % (0.0-1.5); ABG OXYGEN CONTENT 15.9 mL/dL (15.0-23.0); ABG OXYGEN SATURATION 87.6 % (95.0-98.0); ABG OXYHEMOGLOBIN 86.9 % (94.0-100.0); ABG PCO2 43 mmHg (35-45); ABG PH 7.301 (7.35-7.450); PO2, ARTERIAL BG 56.6 mmHg (79.0-87.0); SITE, BLOOD GAS ARTERIAL LINE; SOURCE, BLOOD GAS ARTERIAL; TEMPERATURE, FAHRENHEIT, BG 97.3 FAHREN (96.0-98.6)
[2019-10-09 19:34] LABS: O2 DEVICE,BLOOD GAS VENTILATOR (ROOM AIR); PRESSURE SUPPORT, BG 10 cm H2O; VENT MODE, BG OTHER (ROOM AIR); VT, ABG 684 ml
[2019-10-09 20:09] LABS: APPEARANCE,URINE CLOUDY (CLEAR); BILIRUBIN,URINE NEGATIVE (NEGATIVE); GLUCOSE, URINE (UA) NEGATIVE (NEGATIVE); KETONES,URINE NEGATIVE (NEGATIVE); LEUKOCYTE ESTERASE ,URINE SMALL (NEGATIVE); NITRATE,URINE NEGATIVE (NEGATIVE); OCCULT BLOOD,URINE NEGATIVE (NEGATIVE); PH,URINE 5.5 (5.0-8.0); PROTEIN,URINE SEE CONFIRM (NEGATIVE); UROBILINOGEN,URINE 0.2 mg/dL (<=1.0)
[2019-10-09 20:16] LABS: CREATININE,URINE RANDOM 146.3 mg/dL (30.0-125.0); PROTEIN,URINE RANDOM 280 mg/dL (0-11.9); SODIUM,URINE RANDOM 29 mmol/l (20-110); UREA NITROGEN,URINE RANDOM 354 mg/dL (350-1000)
[2019-10-09 20:38] LABS: RBC,URINE 0-2 /HPF (0-2)
[2019-10-09 20:39] LABS: BACTERIA,URINE Moderate /HPF (None Seen)
[2019-10-09 20:40] LABS: AMORPHOUS SEDIMENT,UR Moderate /LPF (None Seen); SQUAMOUS EPITHELIAL CELL,UR Many /LPF (None Seen)
[2019-10-10] VITALS (11 sets, daily range): BP systolic 112–158; BP diastolic 51–69
[2019-10-10] MEDS: HEPARIN SODIUM,PORCINE 5,000 UNITS/ML VIAL SQ SCH ×3 (00:06→17:20)
[2019-10-10] MEDS: ALBUMIN HUMAN 25%-25GM/100ML 100 ML IV SCH ×3 (01:35→17:16)
[2019-10-10] MEDS: PROPOFOL 1000 MG/ISO-OSM 100 ML IV PRN ×5 (01:35→17:21)
[2019-10-10] MEDS: FentaNYL CITRATE PF 500 MCG in DEXTROSE 5%-WATER 90 ML IV PRN ×3 (02:27→22:07)
[2019-10-10 06:29] LABS: BASOPHILS % (AUTO) 0.1 % (0.0-2.0); EOSINOPHILS % (AUTO) 3.3 % (1.0-6.0); HEMATOCRIT 28.8 % (36-46); HEMOGLOBIN 9.3 g/dL (12.0-16.0); LYMPHOCYTES # (AUTO) 0.7 K/uL (1.0-4.8); MEAN CORPUSCULAR HEMOGLOBIN 28.5 pg (26.0-34.0); MEAN CORPUSCULAR HGB CONC 32.5 G/dL (31.0-37.0); MEAN CORPUSCULAR VOLUME 88 fL (80-100); MONOCYTES # (AUTO) 0.2 K/uL (0.1-1.0); MONOCYTES % (AUTO) 2.3 % (2.0-9.0); NEUTROPHILS # (AUTO) 6.3 K/uL (1.8-7.7); PLATELET COUNT (AUTO) 276 K/uL (150-450); RED BLOOD CELL COUNT(AUTO) 3.28 MIL/uL (4.00-5.20); RED CELL DISTRIBUTION WIDTH 15.6 % (11.5-14.5)
[2019-10-10 06:53] LABS: ALBUMIN 2.9 g/dL (3.4-5.0); BILIRUBIN,TOTAL 0.7 mg/dL (0.1-1.0); C-REACTIVE PROTEIN QUANT 21.68 mg/dL (0.00-0.30); CALCIUM, TOTAL 8.5 mg/dL (8.8-10.5); CREATININE 4.78 mg/dL (0.60-1.30); MAGNESIUM 2.6 mg/dL (1.80-2.40); PHOSPHORUS 7.3 mg/dL (2.5-4.9); POTASSIUM 5.2 mmol/L (3.5-5.1); TOTAL PROTEIN, SERUM 7.1 g/dL (6.4-8.2)
[2019-10-10 07:13] LABS: NEUTROPHILS % (AUTO) 85.3 % (40.0-70.0)
[2019-10-10 07:31] LABS: D-DIMER 16.32 mg/L FEU (0.00-0.50)
[2019-10-10] MEDS: FAMOTIDINE 20 MG TABLET PO SCH (08:08)
[2019-10-10] MEDS: CEFEPIME HCL 2 GM in DEXTROSE 5%-WATER 50 ML IV SCH (08:09)
[2019-10-10] MEDS: ZINC SULFATE 220 MG CAPSULE PO SCH ×2 (08:09→21:11)
[2019-10-10] MEDS: ASPIRIN 81 MG CHEWABLE TABLET PO SCH (08:10)
[2019-10-10 08:59] LABS: ABG A-A DIFF O2 388.9 mmHg (10-20.0); ABG BASE EXCESS -5.5 mmol/L (-2.0-3.0); ABG HCO3 20.1 mmol/L (22.0-26.0); ABG METHEMOGLOBIN 0.3 % (0.0-1.5); ABG OXYGEN CONTENT 13.8 mL/dL (15.0-23.0); ABG OXYGEN SATURATION 91.8 % (95.0-98.0); ABG OXYHEMOGLOBIN 91.5 % (94.0-100.0); ABG PCO2 42 mmHg (35-45); ABG PH 7.315 (7.35-7.450); ABG TOTAL HEMOGLOBIN 10.7 G/dL (12.0-18.0); PO2, ARTERIAL BG 66.3 mmHg (79.0-87.0); SOURCE, BLOOD GAS ARTERIAL; TEMPERATURE, FAHRENHEIT, BG 97.8 FAHREN (96.0-98.6)
[2019-10-10 09:10] LABS: O2 DEVICE,BLOOD GAS VENTILATOR (ROOM AIR); SITE, BLOOD GAS ARTERIAL LINE
[2019-10-10 09:11] LABS: PRESSURE SUPPORT, BG 10 cm H2O; SPONTANEOUS VT, BG 857 ml; VENT MODE, BG APRV (ROOM AIR)
[2019-10-10] MEDS: DOCUSATE SODIUM 100 MG CAPSULE PO SCH ×2 (10:48→21:11)
[2019-10-10] MEDS ORDERED: SODIUM CHLORIDE 0.9% 1,000 ML ONE (14:20)
[2019-10-10 16:37] LABS: GLUCOSE,POINT OF CARE 72 MG/DL (70-110)
[2019-10-10] MEDS ORDERED: DAPTOMYCIN 500 MG in SODIUM CHLORIDE 0.9% 50 ML IV SCH (21:00)
[2019-10-11] VITALS (8 sets, daily range): BP systolic 5–173; BP diastolic 41–63
[2019-10-11] MEDS: HEPARIN SODIUM,PORCINE 5,000 UNITS/ML VIAL SQ SCH ×3 (00:44→15:28)
[2019-10-11 02:11] LABS: GLUCOSE,POINT OF CARE 70 MG/DL (70-110)
[2019-10-11] MEDS: ALBUMIN HUMAN 25%-25GM/100ML 100 ML IV SCH ×3 (03:03→17:25)
[2019-10-11 03:56] LABS: GLUCOSE,POINT OF CARE 73 MG/DL (70-110)
[2019-10-11 05:38] LABS: BASOPHILS % (AUTO) 0.5 % (0.0-2.0); HEMATOCRIT 31.7 % (36-46); HEMOGLOBIN 10.3 g/dL (12.0-16.0); LYMPHOCYTES # (AUTO) 0.7 K/uL (1.0-4.8); LYMPHOCYTES % (AUTO) 8.5 % (22.0-44.0); MEAN CORPUSCULAR HEMOGLOBIN 28.6 pg (26.0-34.0); MEAN CORPUSCULAR HGB CONC 32.6 G/dL (31.0-37.0); MEAN CORPUSCULAR VOLUME 88 fL (80-100); MONOCYTES # (AUTO) 0.3 K/uL (0.1-1.0); MONOCYTES % (AUTO) 3.2 % (2.0-9.0); NEUTROPHILS % (AUTO) 84.8 % (40.0-70.0); PLATELET COUNT (AUTO) 300 K/uL (150-450); RED BLOOD CELL COUNT(AUTO) 3.61 MIL/uL (4.00-5.20)
[2019-10-11 06:13] LABS: ALBUMIN 3.2 g/dL (3.4-5.0); BILIRUBIN,TOTAL 0.8 mg/dL (0.1-1.0); C-REACTIVE PROTEIN QUANT 12.33 mg/dL (0.00-0.30); CALCIUM, TOTAL 8.5 mg/dL (8.8-10.5); CREATININE 4.17 mg/dL (0.60-1.30); MAGNESIUM 2.3 mg/dL (1.80-2.40); POTASSIUM 5.2 mmol/L (3.5-5.1); TOTAL PROTEIN, SERUM 7.6 g/dL (6.4-8.2)
[2019-10-11 06:44] LABS: D-DIMER 15.97 mg/L FEU (0.00-0.50)
[2019-10-11 07:19] LABS: IGM (IMMUNOFIXATION) 66 mg/dL (26-217)
[2019-10-11 07:44] LABS: GLUCOSE,POINT OF CARE 72 MG/DL (70-110)
[2019-10-11] MEDS: ZINC SULFATE 220 MG CAPSULE PO SCH ×2 (08:15→20:51)
[2019-10-11] MEDS: PROPOFOL 1000 MG/ISO-OSM 100 ML IV PRN ×4 (08:15→19:10)
[2019-10-11] MEDS: ASPIRIN 81 MG CHEWABLE TABLET PO SCH (08:16)
[2019-10-11] MEDS: CEFEPIME HCL 2 GM in DEXTROSE 5%-WATER 50 ML IV SCH (08:16)
[2019-10-11] MEDS: DOCUSATE SODIUM 100 MG CAPSULE PO SCH ×2 (08:16→20:52)
[2019-10-11] MEDS: FAMOTIDINE 20 MG TABLET PO SCH (08:16)
[2019-10-11] MEDS ORDERED: DEXTROSE 50%-WATER 25 GM/50 ML SYRINGE IVP ONE ×2 (08:51→10:00)
[2019-10-11 12:33] LABS: GLUCOSE,POINT OF CARE 148 MG/DL (70-110)
[2019-10-11 14:06] LABS: QUANTIFERON+, Nil Value 0.14 IU/mL; QUANTIFERON+,TB1 Antigen Value 0.14 IU/mL; QUANTIFERON, TB GOLD PLUS Indeterminate (Negative)
[2019-10-11 16:00] LABS: GLUCOSE,POINT OF CARE 179 MG/DL (70-110)
[2019-10-11 16:00] LABS: GLUCOSE,POINT OF CARE 68 MG/DL (70-110)
[2019-10-11] MEDS ORDERED: DEXTROSE 50%-WATER 25 GM/50 ML SYRINGE IVP PRN (17:15)
[2019-10-11] MEDS: FentaNYL CITRATE PF 500 MCG in DEXTROSE 5%-WATER 90 ML IV PRN (17:26)
[2019-10-11 18:09] LABS: GLUCOSE,POINT OF CARE 89 MG/DL (70-110)
[2019-10-12] VITALS (9 sets, daily range): BP systolic 107–172; BP diastolic 48–96
[2019-10-12] MEDS ORDERED: SODIUM CHLORIDE 0.9% 500 ML IV ONE (00:45)
[2019-10-12] MEDS: HEPARIN SODIUM,PORCINE 5,000 UNITS/ML VIAL SQ SCH ×4 (00:47→23:08)
[2019-10-12] MEDS: PROPOFOL 1000 MG/ISO-OSM 100 ML IV PRN ×5 (00:48→19:48)
[2019-10-12] MEDS: ALBUMIN HUMAN 25%-25GM/100ML 100 ML IV SCH ×3 (01:55→16:47)
[2019-10-12 03:04] LABS: GLUCOSE,POINT OF CARE 96 MG/DL (70-110)
[2019-10-12] MEDS: FentaNYL CITRATE PF 500 MCG in DEXTROSE 5%-WATER 90 ML IV PRN ×4 (03:44→23:08)
[2019-10-12 05:48] LABS: BASOPHILS % (AUTO) 0.4 % (0.0-2.0); EOSINOPHILS % (AUTO) 2.3 % (1.0-6.0); HEMATOCRIT 28.6 % (36-46); HEMOGLOBIN 9.3 g/dL (12.0-16.0); LYMPHOCYTES # (AUTO) 0.7 K/uL (1.0-4.8); LYMPHOCYTES % (AUTO) 7.6 % (22.0-44.0); MEAN CORPUSCULAR HEMOGLOBIN 28.5 pg (26.0-34.0); MEAN CORPUSCULAR HGB CONC 32.5 G/dL (31.0-37.0); MEAN CORPUSCULAR VOLUME 88 fL (80-100); MONOCYTES # (AUTO) 0.2 K/uL (0.1-1.0); MONOCYTES % (AUTO) 2.3 % (2.0-9.0); NEUTROPHILS # (AUTO) 8.3 K/uL (1.8-7.7); PLATELET COUNT (AUTO) 303 K/uL (150-450); RED BLOOD CELL COUNT(AUTO) 3.26 MIL/uL (4.00-5.20); RED CELL DISTRIBUTION WIDTH 15.9 % (11.5-14.5)
[2019-10-12 05:53] LABS: NEUTROPHILS % (AUTO) 87.4 % (40.0-70.0)
[2019-10-12 06:08] LABS: D-DIMER 19.29 mg/L FEU (0.00-0.50)
[2019-10-12 06:56] LABS: ALBUMIN 3.6 g/dL (3.4-5.0); C-REACTIVE PROTEIN QUANT 7.98 mg/dL (0.00-0.30); CALCIUM, TOTAL 8.5 mg/dL (8.8-10.5); CREATININE 5.17 mg/dL (0.60-1.30); POTASSIUM 4.7 mmol/L (3.5-5.1); TOTAL PROTEIN, SERUM 7.5 g/dL (6.4-8.2)
[2019-10-12 07:00] LABS: GLUCOSE,POINT OF CARE 102 MG/DL (70-110)
[2019-10-12] MEDS: CEFEPIME HCL 2 GM in DEXTROSE 5%-WATER 50 ML IV SCH (07:09)
[2019-10-12] MEDS: DOCUSATE SODIUM 100 MG CAPSULE PO SCH ×2 (07:37→19:48)
[2019-10-12] MEDS: FAMOTIDINE 20 MG TABLET PO SCH (07:37)
[2019-10-12] MEDS: ZINC SULFATE 220 MG CAPSULE PO SCH ×2 (07:37→20:24)
[2019-10-12] MEDS: ASPIRIN 81 MG CHEWABLE TABLET PO SCH (07:38)
[2019-10-12 09:52] LABS: ABG A-A DIFF O2 553.2 mmHg (10-20.0); ABG BASE EXCESS -7.5 mmol/L (-2.0-3.0); ABG CARBOXYHEMOGLOBIN 0.3 % (0.0-1.5); ABG HCO3 18.2 mmol/L (22.0-26.0); ABG METHEMOGLOBIN 0.3 % (0.0-1.5); ABG OXYGEN CONTENT 14.5 mL/dL (15.0-23.0); ABG OXYGEN SATURATION 96.6 % (95.0-98.0); ABG PCO2 56 mmHg (35-45); ABG TOTAL HEMOGLOBIN 10.6 G/dL (12.0-18.0); PO2, ARTERIAL BG 103.6 mmHg (79.0-87.0); SOURCE, BLOOD GAS ARTERIAL; TEMPERATURE, FAHRENHEIT, BG 98.6 FAHREN (96.0-98.6)
[2019-10-12 09:54] LABS: ABG PH 7.185 (7.35-7.450); O2 DEVICE,BLOOD GAS VENTILATOR (ROOM AIR); SITE, BLOOD GAS ARTERIAL LINE
[2019-10-12 09:55] LABS: PRESSURE SUPPORT, BG 10 cm H2O; VENT MODE, BG APRV (ROOM AIR)
[2019-10-12 09:56] LABS: SPONTANEOUS VT, BG 582 ml
[2019-10-12] MEDS ORDERED: SODIUM CHLORIDE 0.9% 250 ML IV ONE (10:30)
[2019-10-12 11:37] LABS: ABG CARBOXYHEMOGLOBIN 0.3 % (0.0-1.5); SOURCE, BLOOD GAS ARTERIAL; TEMPERATURE, FAHRENHEIT, BG 97.9 FAHREN (96.0-98.6)
[2019-10-12 11:40] LABS: ABG A-A DIFF O2 556.2 mmHg (10-20.0); ABG BASE EXCESS -7.5 mmol/L (-2.0-3.0); ABG HCO3 18.3 mmol/L (22.0-26.0); ABG METHEMOGLOBIN 0.5 % (0.0-1.5); ABG OXYGEN CONTENT 14.6 mL/dL (15.0-23.0); ABG OXYGEN SATURATION 96.9 % (95.0-98.0); ABG OXYHEMOGLOBIN 96.1 % (94.0-100.0); ABG PCO2 54 mmHg (35-45); ABG TOTAL HEMOGLOBIN 10.7 G/dL (12.0-18.0); PO2, ARTERIAL BG 104.1 mmHg (79.0-87.0)
[2019-10-12 11:43] LABS: O2 DEVICE,BLOOD GAS VENTILATOR (ROOM AIR); SITE, BLOOD GAS ARTERIAL LINE
[2019-10-12 11:44] LABS: VENT MODE, BG APRV (ROOM AIR)
[2019-10-12 11:45] LABS: SPONTANEOUS VT, BG 720 ml
[2019-10-12 12:36] LABS: GLUCOSE,POINT OF CARE 110 MG/DL (70-110)
[2019-10-12 17:38] LABS: GLUCOSE,POINT OF CARE 85 MG/DL (70-110)
[2019-10-13] VITALS: BP 128/64
[2019-10-13] MEDS: ALBUMIN HUMAN 25%-25GM/100ML 100 ML IV SCH ×3 (01:57→17:54)
[2019-10-13] MEDS: FentaNYL CITRATE PF 500 MCG in DEXTROSE 5%-WATER 90 ML IV PRN ×4 (03:54→21:16)
[2019-10-13 04:00] VITALS: BP 119/67
[2019-10-13] MEDS: PROPOFOL 1000 MG/ISO-OSM 100 ML IV PRN ×3 (05:18→19:46)
[2019-10-13 05:54] LABS: GLUCOSE,POINT OF CARE 106 MG/DL (70-110)
[2019-10-13 06:40] LABS: BASOPHILS % (AUTO) 0.9 % (0.0-2.0); EOSINOPHILS % (AUTO) 1.4 % (1.0-6.0); HEMATOCRIT 27.3 % (36-46); HEMOGLOBIN 8.8 g/dL (12.0-16.0); LYMPHOCYTES # (AUTO) 0.9 K/uL (1.0-4.8); LYMPHOCYTES % (AUTO) 8.2 % (22.0-44.0); MEAN CORPUSCULAR HEMOGLOBIN 28.2 pg (26.0-34.0); MEAN CORPUSCULAR HGB CONC 32.2 G/dL (31.0-37.0); MEAN CORPUSCULAR VOLUME 88 fL (80-100); MONOCYTES # (AUTO) 0.3 K/uL (0.1-1.0); MONOCYTES % (AUTO) 2.5 % (2.0-9.0); NEUTROPHILS # (AUTO) 9.9 K/uL (1.8-7.7); PLATELET COUNT (AUTO) 327 K/uL (150-450); RED BLOOD CELL COUNT(AUTO) 3.12 MIL/uL (4.00-5.20); RED CELL DISTRIBUTION WIDTH 16.3 % (11.5-14.5)
[2019-10-13 07:21] LABS: BILIRUBIN,TOTAL 1.1 mg/dL (0.1-1.0); C-REACTIVE PROTEIN QUANT 7.16 mg/dL (0.00-0.30); CALCIUM, TOTAL 8.8 mg/dL (8.8-10.5); CREATININE 6.35 mg/dL (0.60-1.30); POTASSIUM 5.2 mmol/L (3.5-5.1)
[2019-10-13 08:00] VITALS: BP 110/43
[2019-10-13 08:14] LABS: GLUCOSE,POINT OF CARE 88 MG/DL (70-110)
[2019-10-13] MEDS: HEPARIN SODIUM,PORCINE 5,000 UNITS/ML VIAL SQ SCH (09:41)
[2019-10-13] MEDS: ASPIRIN 81 MG CHEWABLE TABLET PO SCH (09:42)
[2019-10-13] MEDS: DOCUSATE SODIUM 100 MG CAPSULE PO SCH ×2 (09:42→20:31)
[2019-10-13] MEDS: ZINC SULFATE 220 MG CAPSULE PO SCH ×2 (09:42→20:31)
[2019-10-13] MEDS: FAMOTIDINE 20 MG TABLET PO SCH (09:42)
[2019-10-13 12:00] VITALS: BP 118/67
[2019-10-13] MEDS ORDERED: HEPARIN SODIUM 25000 UNITS/D5W 250 ML IV PRN (14:14)
[2019-10-13] MEDS ORDERED: HEPARIN SODIUM,PORCINE 5,000 UNITS/ML VIAL IVP ONE (14:15)
[2019-10-13] MEDS ORDERED: HEPARIN SODIUM,PORCINE 5,000 UNITS/ML VIAL IVP PRN ×2 (14:15)
[2019-10-13 15:39] LABS: PROTHROMBIN TIME 9.9 SEC (9.4-11.6)
[2019-10-13 16:00] VITALS: BP 118/57
[2019-10-13] MEDS ORDERED: HEPARIN SODIUM,PORCINE 1,000 UNITS/ML VIAL ONE (17:30)
[2019-10-13 19:25] LABS: ABG A-A DIFF O2 211.6 mmHg (10-20.0); ABG BASE EXCESS -5.7 mmol/L (-2.0-3.0); ABG CARBOXYHEMOGLOBIN 0.3 % (0.0-1.5); ABG HCO3 19.2 mmol/L (22.0-26.0); ABG METHEMOGLOBIN 0.6 % (0.0-1.5); ABG OXYGEN CONTENT 13.6 mL/dL (15.0-23.0); ABG OXYGEN SATURATION 98.1 % (95.0-98.0); ABG OXYHEMOGLOBIN 97.2 % (94.0-100.0); ABG TOTAL HEMOGLOBIN 9.8 G/dL (12.0-18.0); PO2, ARTERIAL BG 128.4 mmHg (79.0-87.0); SOURCE, BLOOD GAS ARTERIAL; TEMPERATURE, FAHRENHEIT, BG 98.6 FAHREN (96.0-98.6)
[2019-10-13 19:26] LABS: ABG PCO2 80 mmHg (35-45); ABG PH 7.096 (7.35-7.450); O2 DEVICE,BLOOD GAS VENTILATOR (ROOM AIR); SITE, BLOOD GAS ARTERIAL LINE
[2019-10-13 19:27] LABS: PRESSURE SUPPORT, BG 10 cm H2O; VENT MODE, BG OTHER (ROOM AIR); VT, ABG 745 ml
[2019-10-13] MEDS: NOREPINEPHRINE 4 MG/D5%-WATER 250 ML IV PRN (19:44)
[2019-10-13 20:00] VITALS: BP 111/51
[2019-10-13 20:44] LABS: ABG A-A DIFF O2 297.3 mmHg (10-20.0); ABG BASE EXCESS -5.9 mmol/L (-2.0-3.0); ABG CARBOXYHEMOGLOBIN 0.5 % (0.0-1.5); ABG HCO3 19.2 mmol/L (22.0-26.0); ABG OXYGEN CONTENT 12.2 mL/dL (15.0-23.0); ABG OXYGEN SATURATION 89.8 % (95.0-98.0); ABG OXYHEMOGLOBIN 89.4 % (94.0-100.0); ABG PCO2 65 mmHg (35-45); ABG TOTAL HEMOGLOBIN 9.7 G/dL (12.0-18.0); PO2, ARTERIAL BG 58.7 mmHg (79.0-87.0); SOURCE, BLOOD GAS ARTERIAL; TEMPERATURE, FAHRENHEIT, BG 98.6 FAHREN (96.0-98.6)
[2019-10-13 20:45] LABS: ABG PH 7.161 (7.35-7.450); SITE, BLOOD GAS ARTERIAL LINE
[2019-10-13 20:46] LABS: O2 DEVICE,BLOOD GAS VENTILATOR (ROOM AIR); VENT MODE, BG APRV (ROOM AIR)
[2019-10-13 21:31] LABS: GLUCOSE,POINT OF CARE 153 MG/DL (70-110)
[2019-10-13 21:31] LABS: GLUCOSE,POINT OF CARE 125 MG/DL (70-110)
[2019-10-14] VITALS: BP 129/51
[2019-10-14] MEDS: ALBUMIN HUMAN 25%-25GM/100ML 100 ML IV SCH ×3 (01:01→18:39)
[2019-10-14] MEDS: PROPOFOL 1000 MG/ISO-OSM 100 ML IV PRN ×4 (01:21→20:48)
[2019-10-14 01:51] LABS: GLUCOSE,POINT OF CARE 150 MG/DL (70-110)
[2019-10-14 01:51] LABS: GLUCOSE,POINT OF CARE 92 MG/DL (70-110)
[2019-10-14 04:00] VITALS: BP 156/53
[2019-10-14] MEDS: FentaNYL CITRATE PF 500 MCG in DEXTROSE 5%-WATER 90 ML IV PRN ×2 (05:55→18:44)
[2019-10-14 06:06] LABS: ALBUMIN URINE (ELP) Note: %
[2019-10-14 06:35] LABS: BASOPHILS % (AUTO) 0.5 % (0.0-2.0); EOSINOPHILS % (AUTO) 0.8 % (1.0-6.0); HEMATOCRIT 24.5 % (36-46); HEMOGLOBIN 8.3 g/dL (12.0-16.0); LYMPHOCYTES # (AUTO) 0.9 K/uL (1.0-4.8); LYMPHOCYTES % (AUTO) 8.8 % (22.0-44.0); MEAN CORPUSCULAR HEMOGLOBIN 29.6 pg (26.0-34.0); MEAN CORPUSCULAR HGB CONC 34.1 G/dL (31.0-37.0); MEAN CORPUSCULAR VOLUME 87 fL (80-100); MONOCYTES # (AUTO) 0.4 K/uL (0.1-1.0); MONOCYTES % (AUTO) 3.5 % (2.0-9.0); NEUTROPHILS # (AUTO) 9.2 K/uL (1.8-7.7); PLATELET COUNT (AUTO) 326 K/uL (150-450); RED BLOOD CELL COUNT(AUTO) 2.82 MIL/uL (4.00-5.20); RED CELL DISTRIBUTION WIDTH 16.8 % (11.5-14.5)
[2019-10-14 06:40] LABS: NEUTROPHILS % (AUTO) 86.4 % (40.0-70.0)
[2019-10-14 08:00] VITALS: BP 145/54
[2019-10-14 08:33] LABS: SOURCE, BLOOD GAS ARTERIAL; TEMPERATURE, FAHRENHEIT, BG 98.6 FAHREN (96.0-98.6)
[2019-10-14 08:39] LABS: ABG BASE EXCESS -6.5 mmol/L (-2.0-3.0); ABG CARBOXYHEMOGLOBIN 0.3 % (0.0-1.5); ABG HCO3 19.3 mmol/L (22.0-26.0); ABG OXYGEN CONTENT 11.5 mL/dL (15.0-23.0); ABG OXYGEN SATURATION 98.7 % (95.0-98.0); ABG OXYHEMOGLOBIN 98.4 % (94.0-100.0); ABG PCO2 50 mmHg (35-45); ABG TOTAL HEMOGLOBIN 8.1 G/dL (12.0-18.0)
[2019-10-14 08:40] LABS: O2 DEVICE,BLOOD GAS VENTILATOR (ROOM AIR); SITE, BLOOD GAS ARTERIAL LINE
[2019-10-14 08:41] LABS: PRESSURE SUPPORT, BG 10 cm H2O; SPONTANEOUS VT, BG 862 ml; VENT MODE, BG APRV (ROOM AIR)
[2019-10-14 09:41] LABS: ALBUMIN 4.2 g/dL (3.4-5.0); C-REACTIVE PROTEIN QUANT 5.3 mg/dL (0.00-0.30); CALCIUM, TOTAL 8.8 mg/dL (8.8-10.5); CREATININE 5.69 mg/dL (0.60-1.30); POTASSIUM 4.9 mmol/L (3.5-5.1); TOTAL PROTEIN, SERUM 7.6 g/dL (6.4-8.2)
[2019-10-14 09:50] LABS: D-DIMER 10.58 mg/L FEU (0.00-0.50)
[2019-10-14 09:52] LABS: GLUCOMETER DEV NAME(LOC) AHU.; GLUCOSE,POINT OF CARE 113 MG/DL (70-110)
[2019-10-14] MEDS ORDERED: SODIUM CHLORIDE 0.9% 100 ML ONE (10:03)
[2019-10-14] MEDS: ZINC SULFATE 220 MG CAPSULE PO SCH ×2 (10:23→20:43)
[2019-10-14] MEDS: ASPIRIN 81 MG CHEWABLE TABLET PO SCH (10:23)
[2019-10-14] MEDS: FAMOTIDINE 20 MG TABLET PO SCH (10:23)
[2019-10-14] MEDS: DOCUSATE SODIUM 100 MG CAPSULE PO SCH ×2 (10:23→20:43)
[2019-10-14 12:00] VITALS: BP 103/39
[2019-10-14 13:53] LABS: BASOPHILS % (AUTO) 0.4 % (0.0-2.0); EOSINOPHILS % (AUTO) 0.6 % (1.0-6.0); HEMATOCRIT 23.8 % (36-46); HEMOGLOBIN 7.7 g/dL (12.0-16.0); LYMPHOCYTES # (AUTO) 0.9 K/uL (1.0-4.8); LYMPHOCYTES % (AUTO) 7.6 % (22.0-44.0); MEAN CORPUSCULAR HEMOGLOBIN 28.3 pg (26.0-34.0); MEAN CORPUSCULAR HGB CONC 32.3 G/dL (31.0-37.0); MEAN CORPUSCULAR VOLUME 88 fL (80-100); MONOCYTES # (AUTO) 0.4 K/uL (0.1-1.0); MONOCYTES % (AUTO) 3.7 % (2.0-9.0); NEUTROPHILS # (AUTO) 10.5 K/uL (1.8-7.7); PLATELET COUNT (AUTO) 317 K/uL (150-450); RED BLOOD CELL COUNT(AUTO) 2.71 MIL/uL (4.00-5.20); RED CELL DISTRIBUTION WIDTH 16.3 % (11.5-14.5)
[2019-10-14 13:58] LABS: NEUTROPHILS % (AUTO) 87.7 % (40.0-70.0)
[2019-10-14 16:00] VITALS: BP 115/62
[2019-10-14 20:00] VITALS: BP 162/64
[2019-10-15] VITALS: BP 136/53
[2019-10-15] MEDS: ALBUMIN HUMAN 25%-25GM/100ML 100 ML IV SCH ×3 (02:19→17:54)
[2019-10-15] MEDS: PROPOFOL 1000 MG/ISO-OSM 100 ML IV PRN ×4 (02:22→23:41)
[2019-10-15 04:00] VITALS: BP 162/52
[2019-10-15] MEDS: FentaNYL CITRATE PF 500 MCG in DEXTROSE 5%-WATER 90 ML IV PRN ×2 (06:15→17:06)
[2019-10-15 06:22] LABS: GLUCOSE,POINT OF CARE 95 MG/DL (70-110)
[2019-10-15 06:22] LABS: GLUCOSE,POINT OF CARE 108 MG/DL (70-110)
[2019-10-15 06:23] LABS: GLUCOSE,POINT OF CARE 96 MG/DL (70-110)
[2019-10-15 07:07] LABS: BASOPHILS % (AUTO) 0.7 % (0.0-2.0); EOSINOPHILS % (AUTO) 1.3 % (1.0-6.0); HEMATOCRIT 24.5 % (36-46); HEMOGLOBIN 7.7 g/dL (12.0-16.0); LYMPHOCYTES # (AUTO) 0.9 K/uL (1.0-4.8); LYMPHOCYTES % (AUTO) 7.6 % (22.0-44.0); MEAN CORPUSCULAR HEMOGLOBIN 27.6 pg (26.0-34.0); MEAN CORPUSCULAR HGB CONC 31.6 G/dL (31.0-37.0); MEAN CORPUSCULAR VOLUME 88 fL (80-100); MONOCYTES # (AUTO) 0.6 K/uL (0.1-1.0); MONOCYTES % (AUTO) 4.9 % (2.0-9.0); NEUTROPHILS # (AUTO) 9.7 K/uL (1.8-7.7); PLATELET COUNT (AUTO) 331 K/uL (150-450); RED CELL DISTRIBUTION WIDTH 16.3 % (11.5-14.5)
[2019-10-15 07:08] LABS: NEUTROPHILS % (AUTO) 85.5 % (40.0-70.0)
[2019-10-15 07:40] LABS: ALBUMIN 4.2 g/dL (3.4-5.0); BILIRUBIN,TOTAL 0.8 mg/dL (0.1-1.0); CALCIUM, TOTAL 9.4 mg/dL (8.8-10.5); CREATININE 6.98 mg/dL (0.60-1.30); MAGNESIUM 2.5 mg/dL (1.80-2.40); PHOSPHORUS 8.5 mg/dL (2.5-4.9); POTASSIUM 5.2 mmol/L (3.5-5.1); TOTAL PROTEIN, SERUM 7.8 g/dL (6.4-8.2)
[2019-10-15 08:00] VITALS: BP 133/53
[2019-10-15] MEDS: FAMOTIDINE 20 MG TABLET PO SCH (09:54)
[2019-10-15] MEDS: ZINC SULFATE 220 MG CAPSULE PO SCH ×2 (09:54→20:56)
[2019-10-15] MEDS: DOCUSATE SODIUM 100 MG CAPSULE PO SCH ×2 (09:55→20:56)
[2019-10-15] MEDS: EPOETIN ALFA 10,000 UNITS/ML VIAL SQ SCH (09:55)
[2019-10-15] MEDS: ASPIRIN 81 MG CHEWABLE TABLET PO SCH (09:55)
[2019-10-15 10:04] LABS: D-DIMER 14.44 mg/L FEU (0.00-0.50)
[2019-10-15 10:30] LABS: C-REACTIVE PROTEIN QUANT 3.79 mg/dL (0.00-0.30)
[2019-10-15] MEDS: PANTOPRAZOLE SODIUM 80 MG in SODIUM CHLORIDE 0.9% 100 ML IV SCH ×2 (11:47→20:55)
[2019-10-15 12:00] VITALS: BP 125/48
[2019-10-15] MEDS ORDERED: HEPARIN SODIUM,PORCINE 1,000 UNITS/ML VIAL IVP ONE (12:00)
[2019-10-15 12:30] LABS: GLUCOSE,POINT OF CARE 123 MG/DL (70-110)
[2019-10-15 12:35] LABS: GLUCOSE,POINT OF CARE 105 MG/DL (70-110)
[2019-10-15 16:00] VITALS: BP 163/57
[2019-10-15 16:55] LABS: CALCIUM, TOTAL 8.7 mg/dL (8.8-10.5); CREATININE 3.75 mg/dL (0.60-1.30); POTASSIUM 4.1 mmol/L (3.5-5.1)
[2019-10-15] MEDS: SODIUM POLYSTYRENE SULFONATE 15 GM/60 ML SUSPENSION BOTTLE PO SCH (17:08)
[2019-10-15 19:02] LABS: GLUCOSE,POINT OF CARE 111 MG/DL (70-110)
[2019-10-15 20:00] VITALS: BP 140/85
[2019-10-16] VITALS (7 sets, daily range): BP systolic 103–178; BP diastolic 46–125
[2019-10-16] MEDS: ALBUMIN HUMAN 25%-25GM/100ML 100 ML IV SCH ×3 (01:27→17:05)
[2019-10-16] MEDS: FentaNYL CITRATE PF 500 MCG in DEXTROSE 5%-WATER 90 ML IV PRN ×3 (03:24→23:49)
[2019-10-16 06:29] LABS: HEMATOCRIT 21.5 % (36-46); HEMOGLOBIN 7.4 g/dL (12.0-16.0); MEAN CORPUSCULAR HEMOGLOBIN 29.5 pg (26.0-34.0); MEAN CORPUSCULAR HGB CONC 34.3 G/dL (31.0-37.0); MEAN CORPUSCULAR VOLUME 86 fL (80-100); PLATELET COUNT (AUTO) 358 K/uL (150-450); RED CELL DISTRIBUTION WIDTH 15.5 % (11.5-14.5)
[2019-10-16] MEDS: PANTOPRAZOLE SODIUM 80 MG in SODIUM CHLORIDE 0.9% 100 ML IV SCH ×2 (06:43→17:05)
[2019-10-16 07:26] LABS: ALBUMIN 4.5 g/dL (3.4-5.0); BILIRUBIN,TOTAL 0.8 mg/dL (0.1-1.0); C-REACTIVE PROTEIN QUANT 2.45 mg/dL (0.00-0.30); CALCIUM, TOTAL 9.4 mg/dL (8.8-10.5); CREATININE 4.89 mg/dL (0.60-1.30); POTASSIUM 3.8 mmol/L (3.5-5.1); TOTAL PROTEIN, SERUM 7.8 g/dL (6.4-8.2)
[2019-10-16] MEDS ORDERED: SODIUM CHLORIDE 0.9% 500 ML IV ONE (08:30)
[2019-10-16] MEDS: DOCUSATE SODIUM 100 MG CAPSULE PO SCH ×2 (08:33→21:00)
[2019-10-16 08:40] LABS: BAND NEUTROPHILS % (MANUAL) 6 % (0-5); LYMPHOCYTES % (MANUAL) 15 % (22-44); MONOCYTES % (MANUAL) 3 % (2-9); SEGMENTED NEUTROPHILS % 76 % (40-70)
[2019-10-16] MEDS: SODIUM POLYSTYRENE SULFONATE 15 GM/60 ML SUSPENSION BOTTLE PO SCH (09:00)
[2019-10-16] MEDS: ZINC SULFATE 220 MG CAPSULE PO SCH ×2 (09:02→21:16)
[2019-10-16] MEDS: ASPIRIN 81 MG CHEWABLE TABLET PO SCH (09:02)
[2019-10-16] MEDS: FAMOTIDINE 20 MG TABLET PO SCH (09:03)
[2019-10-16 10:37] LABS: GLUCOSE,POINT OF CARE 125 MG/DL (70-110)
[2019-10-16 10:37] LABS: GLUCOSE,POINT OF CARE 116 MG/DL (70-110)
[2019-10-16 10:37] LABS: GLUCOSE,POINT OF CARE 104 MG/DL (70-110)
[2019-10-16] MEDS: PROPOFOL 1000 MG/ISO-OSM 100 ML IV PRN ×3 (13:02→19:37)
[2019-10-16] MEDS ORDERED: SODIUM POLYSTYRENE SULFONATE 15 GM/60 ML SUSPENSION BOTTLE PO SCH (14:00)
[2019-10-16 20:36] LABS: GLUCOSE,POINT OF CARE 114 MG/DL (70-110)
[2019-10-16 20:36] LABS: GLUCOSE,POINT OF CARE 123 MG/DL (70-110)
[2019-10-17] VITALS (11 sets, daily range): BP systolic 110–189; BP diastolic 48–65
[2019-10-17] MEDS: ALBUMIN HUMAN 25%-25GM/100ML 100 ML IV SCH (02:40)
[2019-10-17] MEDS: PANTOPRAZOLE SODIUM 80 MG in SODIUM CHLORIDE 0.9% 100 ML IV SCH ×3 (03:54→22:54)
[2019-10-17 07:17] LABS: HEMATOCRIT 21.1 % (36-46); MEAN CORPUSCULAR HEMOGLOBIN 28.2 pg (26.0-34.0); MEAN CORPUSCULAR HGB CONC 32.7 G/dL (31.0-37.0); MEAN CORPUSCULAR VOLUME 86 fL (80-100); PLATELET COUNT (AUTO) 325 K/uL (150-450); RED BLOOD CELL COUNT(AUTO) 2.44 MIL/uL (4.00-5.20); RED CELL DISTRIBUTION WIDTH 15.6 % (11.5-14.5)
[2019-10-17 07:30] LABS: HEMOGLOBIN 6.9 g/dL (12.0-16.0)
[2019-10-17] MEDS: AMINO ACIDS/PROTEIN HYDROLYS 30 ML TUBE PO SCH (08:00)
[2019-10-17 08:17] LABS: BAND NEUTROPHILS % (MANUAL) 5 % (0-5); LYMPHOCYTES % (MANUAL) 12 % (22-44); MONOCYTES % (MANUAL) 5 % (2-9); PLATELET MORPHOLOGY COMMENT GIANT PLTS PRESENT; SEGMENTED NEUTROPHILS % 78 % (40-70)
[2019-10-17 08:37] LABS: ALBUMIN 4.6 g/dL (3.4-5.0); BILIRUBIN,TOTAL 0.8 mg/dL (0.1-1.0); C-REACTIVE PROTEIN QUANT 2.21 mg/dL (0.00-0.30); CALCIUM, TOTAL 9.6 mg/dL (8.8-10.5); CREATININE 6.44 mg/dL (0.60-1.30); POTASSIUM 4.4 mmol/L (3.5-5.1); TOTAL PROTEIN, SERUM 7.6 g/dL (6.4-8.2)
[2019-10-17] MEDS: EPOETIN ALFA 10,000 UNITS/ML VIAL SQ SCH (08:42)
[2019-10-17] MEDS: DOCUSATE SODIUM 100 MG CAPSULE PO SCH ×2 (08:45→20:08)
[2019-10-17] MEDS: ASPIRIN 81 MG CHEWABLE TABLET PO SCH (08:45)
[2019-10-17] MEDS: VITAMIN B COMP/VIT C/FOLIC ACID CAPSULE PO SCH (08:45)
[2019-10-17] MEDS: ZINC SULFATE 220 MG CAPSULE PO SCH ×2 (08:45→20:08)
[2019-10-17] MEDS: PROPOFOL 1000 MG/ISO-OSM 100 ML IV PRN ×2 (08:45→20:08)
[2019-10-17] MEDS: FAMOTIDINE 20 MG TABLET PO SCH (08:45)
[2019-10-17] MEDS: FentaNYL CITRATE PF 500 MCG in DEXTROSE 5%-WATER 90 ML IV PRN ×2 (10:37→17:14)
[2019-10-17 12:53] LABS: GLUCOSE,POINT OF CARE 109 MG/DL (70-110)
[2019-10-17 12:53] LABS: GLUCOSE,POINT OF CARE 118 MG/DL (70-110)
[2019-10-17 17:52] LABS: GLUCOSE,POINT OF CARE 129 MG/DL (70-110)
[2019-10-17 17:54] LABS: GLUCOSE,POINT OF CARE 124 MG/DL (70-110)
[2019-10-17] MEDS ORDERED: HEPARIN SODIUM,PORCINE 1,000 UNITS/ML VIAL IVP ONE (18:01)
[2019-10-18] VITALS (10 sets, daily range): BP systolic 139–172; BP diastolic 55–72
[2019-10-18] MEDS: PROPOFOL 1000 MG/ISO-OSM 100 ML IV PRN ×4 (02:43→20:06)
[2019-10-18 05:53] LABS: BASOPHILS % (AUTO) 0.6 % (0.0-2.0); EOSINOPHILS % (AUTO) 0.7 % (1.0-6.0); HEMATOCRIT 24.3 % (36-46); LYMPHOCYTES # (AUTO) 1.4 K/uL (1.0-4.8); LYMPHOCYTES % (AUTO) 11.6 % (22.0-44.0); MEAN CORPUSCULAR HEMOGLOBIN 28.7 pg (26.0-34.0); MEAN CORPUSCULAR HGB CONC 34.1 G/dL (31.0-37.0); MEAN CORPUSCULAR VOLUME 84 fL (80-100); MONOCYTES # (AUTO) 0.7 K/uL (0.1-1.0); MONOCYTES % (AUTO) 5.6 % (2.0-9.0); NEUTROPHILS % (AUTO) 81.5 % (40.0-70.0); PLATELET COUNT (AUTO) 364 K/uL (150-450); RED BLOOD CELL COUNT(AUTO) 2.89 MIL/uL (4.00-5.20); RED CELL DISTRIBUTION WIDTH 15.8 % (11.5-14.5)
[2019-10-18 07:14] LABS: ALBUMIN 4.4 g/dL (3.4-5.0); BILIRUBIN,TOTAL 0.9 mg/dL (0.1-1.0); C-REACTIVE PROTEIN QUANT 1.88 mg/dL (0.00-0.30); CALCIUM, TOTAL 9.8 mg/dL (8.8-10.5); CREATININE 4.97 mg/dL (0.60-1.30); POTASSIUM 3.7 mmol/L (3.5-5.1); TOTAL PROTEIN, SERUM 7.8 g/dL (6.4-8.2)
[2019-10-18 07:18] LABS: HEMOGLOBIN 8.3 g/dL (12.0-16.0)
[2019-10-18] MEDS: FentaNYL CITRATE PF 500 MCG in DEXTROSE 5%-WATER 90 ML IV PRN (07:19)
[2019-10-18 07:27] LABS: GLUCOSE,POINT OF CARE 114 MG/DL (70-110)
[2019-10-18 07:27] LABS: GLUCOSE,POINT OF CARE 113 MG/DL (70-110)
[2019-10-18] MEDS: AMINO ACIDS/PROTEIN HYDROLYS 30 ML TUBE PO SCH (08:00)
[2019-10-18] MEDS: ZINC SULFATE 220 MG CAPSULE PO SCH ×2 (08:17→20:06)
[2019-10-18] MEDS: PANTOPRAZOLE SODIUM 80 MG in SODIUM CHLORIDE 0.9% 100 ML IV SCH (08:17)
[2019-10-18] MEDS: VITAMIN B COMP/VIT C/FOLIC ACID CAPSULE PO SCH (08:17)
[2019-10-18] MEDS: FAMOTIDINE 20 MG TABLET PO SCH (08:18)
[2019-10-18] MEDS: DOCUSATE SODIUM 100 MG CAPSULE PO SCH ×2 (08:18→20:07)
[2019-10-18] MEDS: ASPIRIN 81 MG CHEWABLE TABLET PO SCH (08:18)
[2019-10-18] MEDS ORDERED: DEXMEDETOMIDINE HCL 200 MCG in SODIUM CHLORIDE 0.9% 48 ML IV PRN (09:51)
[2019-10-18] MEDS ORDERED: PANTOPRAZOLE SODIUM 40 MG DR TABLET PO SCH (10:00)
[2019-10-18] MEDS: METOPROLOL TARTRATE 25 MG TABLET PO SCH ×2 (10:16→20:07)
[2019-10-18] MEDS: DEXMEDETOMIDINE HCL 200 MCG in SODIUM CHLORIDE 0.9% 48 ML IV PRN ×2 (11:08→15:17)
[2019-10-18 11:24] LABS: ABG A-A DIFF O2 182.1 mmHg (10-20.0); ABG BASE EXCESS -6.3 mmol/L (-2.0-3.0); ABG CARBOXYHEMOGLOBIN 0.7 % (0.0-1.5); ABG HCO3 19.8 mmol/L (22.0-26.0); ABG METHEMOGLOBIN 0.3 % (0.0-1.5); ABG OXYGEN CONTENT 12.2 mL/dL (15.0-23.0); ABG OXYGEN SATURATION 92.1 % (95.0-98.0); ABG OXYHEMOGLOBIN 91.2 % (94.0-100.0); ABG PCO2 32 mmHg (35-45); ABG PH 7.385 (7.35-7.450); ABG TOTAL HEMOGLOBIN 9.5 G/dL (12.0-18.0); PO2, ARTERIAL BG 66.1 mmHg (79.0-87.0); SOURCE, BLOOD GAS ARTERIAL
[2019-10-18 11:26] LABS: O2 DEVICE,BLOOD GAS VENTILATOR (ROOM AIR); PRESSURE SUPPORT, BG 10 cm H2O; SITE, BLOOD GAS ARTERIAL LINE; SPONTANEOUS VT, BG 1050 ml; VENT MODE, BG APRV (ROOM AIR)
[2019-10-18 11:53] LABS: GLUCOSE,POINT OF CARE 105 MG/DL (70-110)
[2019-10-18] MEDS: HydrALAZINE HCL 20 MG/ML VIAL IVP PRN (16:24)
[2019-10-18] MEDS: INSULIN LISPRO 100 UNITS/ML SQ PRN (18:14)
[2019-10-19] VITALS (9 sets, daily range): BP systolic 120–162; BP diastolic 49–61
[2019-10-19] MEDS: PROPOFOL 1000 MG/ISO-OSM 100 ML IV PRN ×4 (00:18→20:28)
[2019-10-19] MEDS: FentaNYL CITRATE PF 500 MCG in DEXTROSE 5%-WATER 90 ML IV PRN (03:27)
[2019-10-19] MEDS: HydrALAZINE HCL 20 MG/ML VIAL IVP PRN ×2 (03:56→21:30)
[2019-10-19] MEDS ORDERED: SODIUM CHLORIDE 0.9% 500 ML IV ONE (05:15)
[2019-10-19 05:47] LABS: BASOPHILS % (AUTO) 0.5 % (0.0-2.0); EOSINOPHILS % (AUTO) 0.2 % (1.0-6.0); HEMATOCRIT 26.6 % (36-46); HEMOGLOBIN 8.9 g/dL (12.0-16.0); LYMPHOCYTES # (AUTO) 2.4 K/uL (1.0-4.8); LYMPHOCYTES % (AUTO) 15.6 % (22.0-44.0); MEAN CORPUSCULAR HEMOGLOBIN 28.3 pg (26.0-34.0); MEAN CORPUSCULAR HGB CONC 33.6 G/dL (31.0-37.0); MEAN CORPUSCULAR VOLUME 84 fL (80-100); MONOCYTES # (AUTO) 0.9 K/uL (0.1-1.0); MONOCYTES % (AUTO) 6.1 % (2.0-9.0); NEUTROPHILS # (AUTO) 11.9 K/uL (1.8-7.7); NEUTROPHILS % (AUTO) 77.6 % (40.0-70.0); PLATELET COUNT (AUTO) 390 K/uL (150-450); RED BLOOD CELL COUNT(AUTO) 3.16 MIL/uL (4.00-5.20); RED CELL DISTRIBUTION WIDTH 15.5 % (11.5-14.5)
[2019-10-19 06:42] LABS: ALBUMIN 4.2 g/dL (3.4-5.0); BILIRUBIN,TOTAL 0.8 mg/dL (0.1-1.0); C-REACTIVE PROTEIN QUANT 2.06 mg/dL (0.00-0.30); CALCIUM, TOTAL 10.2 mg/dL (8.8-10.5); CREATININE 5.94 mg/dL (0.60-1.30); POTASSIUM 3.8 mmol/L (3.5-5.1); TOTAL PROTEIN, SERUM 7.6 g/dL (6.4-8.2)
[2019-10-19] MEDS: ZINC SULFATE 220 MG CAPSULE PO SCH ×2 (07:50→20:28)
[2019-10-19] MEDS: DOCUSATE SODIUM 100 MG CAPSULE PO SCH ×2 (07:50→20:28)
[2019-10-19] MEDS: ASPIRIN 81 MG CHEWABLE TABLET PO SCH (07:50)
[2019-10-19] MEDS: FAMOTIDINE 20 MG TABLET PO SCH (07:51)
[2019-10-19] MEDS: METOPROLOL TARTRATE 25 MG TABLET PO SCH ×2 (07:51→20:28)
[2019-10-19] MEDS: VITAMIN B COMP/VIT C/FOLIC ACID CAPSULE PO SCH (07:51)
[2019-10-19 09:37] LABS: GLUCOSE,POINT OF CARE 185 MG/DL (70-110)
[2019-10-19 09:37] LABS: GLUCOSE,POINT OF CARE 118 MG/DL (70-110)
[2019-10-19 09:37] LABS: GLUCOSE,POINT OF CARE 110 MG/DL (70-110)
[2019-10-19] MEDS: AMINO ACIDS/PROTEIN HYDROLYS 30 ML TUBE PO SCH (09:47)
[2019-10-19] MEDS ORDERED: SODIUM CHLORIDE 0.9% 2,000 ML ONE (10:44)
[2019-10-19] MEDS ORDERED: HEPARIN SODIUM 25000 UNITS/D5W 250 ML IV PRN (12:15)
[2019-10-19] MEDS ORDERED: HEPARIN SODIUM,PORCINE 5,000 UNITS/ML VIAL IVP ONE (12:15)
[2019-10-19] MEDS ORDERED: HEPARIN SODIUM,PORCINE 5,000 UNITS/ML VIAL IVP PRN ×3 (12:15→13:15)
[2019-10-19 12:20] LABS: GLUCOSE,POINT OF CARE 146 MG/DL (70-110)
[2019-10-19] MEDS: MetroNIDAZOLE 500 MG TABLET PO SCH (15:08)
[2019-10-19] MEDS: HEPARIN SODIUM 25000 UNITS/D5W 250 ML IV PRN (16:24)
[2019-10-19 17:34] LABS: GLUCOSE,POINT OF CARE 125 MG/DL (70-110)
[2019-10-19 23:44] LABS: ABG A-A DIFF O2 138.5 mmHg (10-20.0); ABG BASE EXCESS -5.9 mmol/L (-2.0-3.0); ABG CARBOXYHEMOGLOBIN 0.3 % (0.0-1.5); ABG HCO3 19.9 mmol/L (22.0-26.0); ABG METHEMOGLOBIN 0.3 % (0.0-1.5); ABG OXYGEN SATURATION 97.3 % (95.0-98.0); ABG OXYHEMOGLOBIN 96.7 % (94.0-100.0); ABG PCO2 41 mmHg (35-45); ABG PH 7.311 (7.35-7.450); ABG TOTAL HEMOGLOBIN 10.2 G/dL (12.0-18.0); PO2, ARTERIAL BG 99.7 mmHg (79.0-87.0); SOURCE, BLOOD GAS ARTERIAL
[2019-10-19 23:46] LABS: O2 DEVICE,BLOOD GAS VENTILATOR (ROOM AIR); PEEP,BG 0 cm H2O; PRESSURE SUPPORT, BG 10 cm H2O; SITE, BLOOD GAS ARTERIAL LINE; SPONTANEOUS VT, BG 642 ml; VENT MODE, BG OTHER (ROOM AIR)
[2019-10-20] VITALS (7 sets, daily range): BP systolic 115–157; BP diastolic 40–56
[2019-10-20] MEDS: MetroNIDAZOLE 500 MG TABLET PO SCH ×4 (00:18→23:12)
[2019-10-20] MEDS: PROPOFOL 1000 MG/ISO-OSM 100 ML IV PRN ×3 (00:20→16:04)
[2019-10-20] MEDS: INSULIN LISPRO 100 UNITS/ML SQ PRN (00:54)
[2019-10-20 02:50] LABS: GLUCOSE,POINT OF CARE 155 MG/DL (70-110)
[2019-10-20] MEDS: HEPARIN SODIUM 25000 UNITS/D5W 250 ML IV PRN ×2 (04:13→18:21)
[2019-10-20 06:24] LABS: BASOPHILS % (AUTO) 0.6 % (0.0-2.0); EOSINOPHILS % (AUTO) 0.6 % (1.0-6.0); HEMATOCRIT 27.4 % (36-46); HEMOGLOBIN 9.1 g/dL (12.0-16.0); LYMPHOCYTES # (AUTO) 2.3 K/uL (1.0-4.8); LYMPHOCYTES % (AUTO) 15.5 % (22.0-44.0); MEAN CORPUSCULAR HEMOGLOBIN 28.7 pg (26.0-34.0); MEAN CORPUSCULAR HGB CONC 33.4 G/dL (31.0-37.0); MEAN CORPUSCULAR VOLUME 86 fL (80-100); MONOCYTES % (AUTO) 6.6 % (2.0-9.0); NEUTROPHILS # (AUTO) 11.3 K/uL (1.8-7.7); NEUTROPHILS % (AUTO) 76.7 % (40.0-70.0); PLATELET COUNT (AUTO) 397 K/uL (150-450); RED BLOOD CELL COUNT(AUTO) 3.18 MIL/uL (4.00-5.20); RED CELL DISTRIBUTION WIDTH 16.1 % (11.5-14.5)
[2019-10-20 06:50] LABS: D-DIMER 12.6 mg/L FEU (0.00-0.50)
[2019-10-20 06:58] LABS: BILIRUBIN,TOTAL 0.7 mg/dL (0.1-1.0); C-REACTIVE PROTEIN QUANT 2.05 mg/dL (0.00-0.30); CALCIUM, TOTAL 10.1 mg/dL (8.8-10.5); CREATININE 4.92 mg/dL (0.60-1.30); POTASSIUM 3.8 mmol/L (3.5-5.1); TOTAL PROTEIN, SERUM 7.6 g/dL (6.4-8.2)
[2019-10-20 07:52] LABS: APPEARANCE,URINE TURBID (CLEAR); GLUCOSE, URINE (UA) NEGATIVE (NEGATIVE); KETONES,URINE TRACE mg/dL (NEGATIVE); LEUKOCYTE ESTERASE ,URINE LARGE (NEGATIVE); NITRATE,URINE NEGATIVE (NEGATIVE); OCCULT BLOOD,URINE LARGE (NEGATIVE); PROTEIN,URINE SEE CONFIRM (NEGATIVE); UROBILINOGEN,URINE 0.2 mg/dL (<=1.0)
[2019-10-20 07:53] LABS: BILIRUBIN,URINE PRELIM. POSITIVE (NEGATIVE)
[2019-10-20 08:23] LABS: SULFOSALICYLIC ACID,URINE 3+ (Negative)
[2019-10-20 08:24] LABS: BACTERIA,URINE Many /HPF (None Seen); RBC,URINE 51-100 /HPF (0-2); SQUAMOUS EPITHELIAL CELL,UR Many /LPF (None Seen); WBC,URINE 26-50 /HPF (0-5); YEAST,URINE Many /HPF (None Seen)
[2019-10-20] MEDS: EPOETIN ALFA 10,000 UNITS/ML VIAL SQ SCH (08:37)
[2019-10-20] MEDS: ASPIRIN 81 MG CHEWABLE TABLET PO SCH (08:38)
[2019-10-20] MEDS: FAMOTIDINE 20 MG TABLET PO SCH (08:38)
[2019-10-20] MEDS: ZINC SULFATE 220 MG CAPSULE PO SCH ×2 (08:38→20:13)
[2019-10-20] MEDS: AMINO ACIDS/PROTEIN HYDROLYS 30 ML TUBE PO SCH (08:38)
[2019-10-20] MEDS: VITAMIN B COMP/VIT C/FOLIC ACID CAPSULE PO SCH (08:39)
[2019-10-20] MEDS: METOPROLOL TARTRATE 25 MG TABLET PO SCH ×2 (08:39→20:13)
[2019-10-20] MEDS: DOCUSATE SODIUM 100 MG CAPSULE PO SCH ×2 (08:40→20:13)
[2019-10-20 08:42] LABS: ABG METHEMOGLOBIN 0.3 % (0.0-1.5); SOURCE, BLOOD GAS ARTERIAL
[2019-10-20 08:45] LABS: ABG A-A DIFF O2 132.6 mmHg (10-20.0); ABG BASE EXCESS -8.5 mmol/L (-2.0-3.0); ABG CARBOXYHEMOGLOBIN 0.7 % (0.0-1.5); ABG OXYGEN CONTENT 13.9 mL/dL (15.0-23.0); ABG OXYGEN SATURATION 92.9 % (95.0-98.0); ABG PCO2 40 mmHg (35-45); ABG PH 7.282 (7.35-7.450); ABG TOTAL HEMOGLOBIN 10.7 G/dL (12.0-18.0); PO2, ARTERIAL BG 71.3 mmHg (79.0-87.0)
[2019-10-20 09:02] LABS: GLUCOSE,POINT OF CARE 124 MG/DL (70-110)
[2019-10-20] MEDS ORDERED: SODIUM BICARBONATE [ADULT] 8.4% 50 MEQ/50 ML SYRINGE IVP ONE ×2 (09:30→09:31)
[2019-10-20] MEDS: FentaNYL CITRATE PF 500 MCG in DEXTROSE 5%-WATER 90 ML IV PRN (12:38)
[2019-10-20] MEDS: DEXMEDETOMIDINE HCL 200 MCG in SODIUM CHLORIDE 0.9% 48 ML IV PRN ×2 (12:40→22:14)
[2019-10-20] MEDS: NOREPINEPHRINE 4 MG/D5%-WATER 250 ML IV PRN (12:52)
[2019-10-20 13:38] LABS: O2 DEVICE,BLOOD GAS VENTILATOR (ROOM AIR); SITE, BLOOD GAS A LINE
[2019-10-20 13:42] LABS: PRESSURE SUPPORT, BG 10 cm H2O; SPONTANEOUS VT, BG 732 ml; VENT MODE, BG APRV (ROOM AIR)
[2019-10-20] MEDS: CefTAZidime PENTAHYDRATE 1 GM in DEXTROSE 5%-WATER 50 ML IV SCH (15:49)
[2019-10-20] MEDS ORDERED: SODIUM CHLORIDE 0.9% 250 ML IV ONE (16:00)
[2019-10-20 16:05] LABS: ABG A-A DIFF O2 168.3 mmHg (10-20.0); ABG BASE EXCESS -5.3 mmol/L (-2.0-3.0); ABG CARBOXYHEMOGLOBIN 0.5 % (0.0-1.5); ABG HCO3 20.4 mmol/L (22.0-26.0); ABG METHEMOGLOBIN 0.4 % (0.0-1.5); ABG OXYGEN CONTENT 13.7 mL/dL (15.0-23.0); ABG OXYGEN SATURATION 93.9 % (95.0-98.0); ABG OXYHEMOGLOBIN 93.1 % (94.0-100.0); ABG PCO2 39 mmHg (35-45); ABG PH 7.338 (7.35-7.450); ABG TOTAL HEMOGLOBIN 10.4 G/dL (12.0-18.0); PO2, ARTERIAL BG 72.2 mmHg (79.0-87.0); SOURCE, BLOOD GAS ARTERIAL
[2019-10-20 16:08] LABS: O2 DEVICE,BLOOD GAS VENTILATOR (ROOM AIR); SITE, BLOOD GAS A LINE
[2019-10-20 16:14] LABS: PRESSURE SUPPORT, BG 10 cm H2O; SPONTANEOUS VT, BG 469 ml; VENT MODE, BG APRV (ROOM AIR)
[2019-10-20 17:53] LABS: GLUCOSE,POINT OF CARE 181 MG/DL (70-110)
[2019-10-20 20:41] LABS: GLUCOSE,POINT OF CARE 118 MG/DL (70-110)
[2019-10-21] VITALS (7 sets, daily range): BP systolic 120–175; BP diastolic 43–60
[2019-10-21] MEDS: PROPOFOL 1000 MG/ISO-OSM 100 ML IV PRN ×3 (03:07→20:38)
[2019-10-21] MEDS: DEXMEDETOMIDINE HCL 200 MCG in SODIUM CHLORIDE 0.9% 48 ML IV PRN ×4 (03:07→17:27)
[2019-10-21 05:14] LABS: GLUCOSE,POINT OF CARE 111 MG/DL (70-110)
[2019-10-21 05:14] LABS: GLUCOSE,POINT OF CARE 111 MG/DL (70-110)
[2019-10-21 05:28] LABS: BASOPHILS % (AUTO) 0.4 % (0.0-2.0); EOSINOPHILS % (AUTO) 0.8 % (1.0-6.0); HEMATOCRIT 26.9 % (36-46); HEMOGLOBIN 8.8 g/dL (12.0-16.0); LYMPHOCYTES # (AUTO) 2.1 K/uL (1.0-4.8); LYMPHOCYTES % (AUTO) 16.2 % (22.0-44.0); MEAN CORPUSCULAR HEMOGLOBIN 28.2 pg (26.0-34.0); MEAN CORPUSCULAR HGB CONC 32.7 G/dL (31.0-37.0); MEAN CORPUSCULAR VOLUME 86 fL (80-100); MONOCYTES % (AUTO) 7.4 % (2.0-9.0); NEUTROPHILS # (AUTO) 9.8 K/uL (1.8-7.7); NEUTROPHILS % (AUTO) 75.2 % (40.0-70.0); PLATELET COUNT (AUTO) 410 K/uL (150-450); RED BLOOD CELL COUNT(AUTO) 3.12 MIL/uL (4.00-5.20); RED CELL DISTRIBUTION WIDTH 15.7 % (11.5-14.5)
[2019-10-21 05:44] LABS: D-DIMER 6.87 mg/L FEU (0.00-0.50)
[2019-10-21 06:06] LABS: LACTIC ACID 0.5 mmol/L (0.4-2.0)
[2019-10-21 06:09] LABS: ALBUMIN 3.7 g/dL (3.4-5.0); BILIRUBIN,TOTAL 0.6 mg/dL (0.1-1.0); C-REACTIVE PROTEIN QUANT 1.44 mg/dL (0.00-0.30); CALCIUM, TOTAL 9.8 mg/dL (8.8-10.5); CREATININE 5.35 mg/dL (0.60-1.30); POTASSIUM 4.1 mmol/L (3.5-5.1); TOTAL PROTEIN, SERUM 7.3 g/dL (6.4-8.2)
[2019-10-21] MEDS ORDERED: SODIUM CHLORIDE 0.9% 2,000 ML ONE (06:42)
[2019-10-21] MEDS: FAMOTIDINE 20 MG TABLET PO SCH (08:11)
[2019-10-21] MEDS: VITAMIN B COMP/VIT C/FOLIC ACID CAPSULE PO SCH (08:11)
[2019-10-21] MEDS: ASPIRIN 81 MG CHEWABLE TABLET PO SCH (08:11)
[2019-10-21] MEDS: ZINC SULFATE 220 MG CAPSULE PO SCH ×2 (08:11→20:36)
[2019-10-21] MEDS: DOCUSATE SODIUM 100 MG CAPSULE PO SCH ×2 (08:12→20:36)
[2019-10-21] MEDS: AMINO ACIDS/PROTEIN HYDROLYS 30 ML TUBE PO SCH (08:12)
[2019-10-21] MEDS: MetroNIDAZOLE 500 MG TABLET PO SCH ×2 (08:13→15:31)
[2019-10-21 08:39] LABS: ABG A-A DIFF O2 166.8 mmHg (10-20.0); ABG BASE EXCESS 1.3 mmol/L (-2.0-3.0); ABG CARBOXYHEMOGLOBIN 0.6 % (0.0-1.5); ABG HCO3 25.3 mmol/L (22.0-26.0); ABG METHEMOGLOBIN 0.3 % (0.0-1.5); ABG OXYGEN CONTENT 13.8 mL/dL (15.0-23.0); ABG OXYHEMOGLOBIN 92.2 % (94.0-100.0); ABG PCO2 44 mmHg (35-45); ABG PH 7.393 (7.35-7.450); ABG TOTAL HEMOGLOBIN 10.6 G/dL (12.0-18.0); PO2, ARTERIAL BG 68.1 mmHg (79.0-87.0); SOURCE, BLOOD GAS ARTERIAL; TEMPERATURE, FAHRENHEIT, BG 98.2 FAHREN (96.0-98.6)
[2019-10-21 08:40] LABS: O2 DEVICE,BLOOD GAS VENTILATOR (ROOM AIR); SITE, BLOOD GAS ARTERIAL LINE; SPONTANEOUS VT, BG 678 ml
[2019-10-21 08:41] LABS: VENT MODE, BG APRV (ROOM AIR)
[2019-10-21] MEDS: METOPROLOL TARTRATE 25 MG TABLET PO SCH ×2 (09:00→20:36)
[2019-10-21] MEDS: HEPARIN SODIUM 25000 UNITS/D5W 250 ML IV PRN (09:10)
[2019-10-21] MEDS: CefTAZidime PENTAHYDRATE 1 GM in DEXTROSE 5%-WATER 50 ML IV SCH (14:07)
[2019-10-21 15:39] LABS: FREE T4 (FREE THYROXINE) 0.71 ng/dL (0.76-1.46); THYROID STIMULATING HORMONE 3.99 uIU/mL (0.36-3.74)
[2019-10-21] MEDS ORDERED: HEPARIN SODIUM,PORCINE 1,000 UNITS/ML VIAL ONE (17:00)
[2019-10-21] MEDS: FentaNYL CITRATE PF 500 MCG in DEXTROSE 5%-WATER 90 ML IV PRN (20:39)
[2019-10-21 22:17] LABS: GLUCOSE,POINT OF CARE 123 MG/DL (70-110)
[2019-10-21 22:17] LABS: GLUCOSE,POINT OF CARE 131 MG/DL (70-110)
[2019-10-22] VITALS: BP 143/61
[2019-10-22] MEDS: MetroNIDAZOLE 500 MG TABLET PO SCH ×4 (00:24→23:49)
[2019-10-22] MEDS: HydrALAZINE HCL 20 MG/ML VIAL IVP PRN ×3 (00:36→21:24)
[2019-10-22 04:00] VITALS: BP 124/47
[2019-10-22] MEDS: PROPOFOL 1000 MG/ISO-OSM 100 ML IV PRN ×2 (06:02→15:40)
[2019-10-22] MEDS: DEXMEDETOMIDINE HCL 200 MCG in SODIUM CHLORIDE 0.9% 48 ML IV PRN ×3 (06:04→18:24)
[2019-10-22 06:31] LABS: ALBUMIN 3.4 g/dL (3.4-5.0); BILIRUBIN,TOTAL 0.5 mg/dL (0.1-1.0); C-REACTIVE PROTEIN QUANT 1.3 mg/dL (0.00-0.30); CALCIUM, TOTAL 9.5 mg/dL (8.8-10.5); CREATININE 3.34 mg/dL (0.60-1.30); POTASSIUM 3.7 mmol/L (3.5-5.1)
[2019-10-22 07:18] LABS: GLUCOSE,POINT OF CARE 139 MG/DL (70-110)
[2019-10-22 08:00] VITALS: BP 157/56
[2019-10-22] MEDS: DOCUSATE SODIUM 100 MG CAPSULE PO SCH (08:36)
[2019-10-22] MEDS: ASPIRIN 81 MG CHEWABLE TABLET PO SCH (08:37)
[2019-10-22] MEDS: METOPROLOL TARTRATE 25 MG TABLET PO SCH ×2 (08:37→21:11)
[2019-10-22] MEDS: FAMOTIDINE 20 MG TABLET PO SCH (08:37)
[2019-10-22] MEDS: VITAMIN B COMP/VIT C/FOLIC ACID CAPSULE PO SCH (08:37)
[2019-10-22] MEDS: AMINO ACIDS/PROTEIN HYDROLYS 30 ML TUBE PO SCH (08:39)
[2019-10-22] MEDS: EPOETIN ALFA 10,000 UNITS/ML VIAL SQ SCH (08:39)
[2019-10-22] MEDS: ZINC SULFATE 220 MG CAPSULE PO SCH ×2 (08:39→23:01)
[2019-10-22 11:44] LABS: ABG A-A DIFF O2 164.2 mmHg (10-20.0); ABG BASE EXCESS 0.2 mmol/L (-2.0-3.0); ABG CARBOXYHEMOGLOBIN 0.8 % (0.0-1.5); ABG HCO3 24.5 mmol/L (22.0-26.0); ABG METHEMOGLOBIN 0.3 % (0.0-1.5); ABG OXYGEN CONTENT 13.3 mL/dL (15.0-23.0); ABG OXYGEN SATURATION 93.2 % (95.0-98.0); ABG OXYHEMOGLOBIN 92.2 % (94.0-100.0); ABG PCO2 45 mmHg (35-45); ABG PH 7.372 (7.35-7.450); ABG TOTAL HEMOGLOBIN 10.2 G/dL (12.0-18.0); PO2, ARTERIAL BG 69.4 mmHg (79.0-87.0); SOURCE, BLOOD GAS ARTERIAL; TEMPERATURE, FAHRENHEIT, BG 98.6 FAHREN (96.0-98.6)
[2019-10-22 11:45] LABS: O2 DEVICE,BLOOD GAS VENT (ROOM AIR); PRESSURE SUPPORT, BG 10 cm H2O; SITE, BLOOD GAS ARTERIAL LINE; SPONTANEOUS VT, BG 496 ml; VENT MODE, BG APRV (ROOM AIR)
[2019-10-22 12:00] VITALS: BP 142/48
[2019-10-22] MEDS: HEPARIN SODIUM,PORCINE 5,000 UNITS/ML VIAL IVP PRN (12:53)
[2019-10-22 13:49] LABS: GLUCOSE,POINT OF CARE 116 MG/DL (70-110)
[2019-10-22] MEDS ORDERED: SODIUM CHLORIDE 0.9% IV SCH (14:00)
[2019-10-22] MEDS ORDERED: CEFTAZIDIME PENTAHYDRATE IV SCH (14:00)
[2019-10-22] MEDS: FentaNYL CITRATE PF 500 MCG in SODIUM CHLORIDE 0.9% 90 ML IV PRN (14:02)
[2019-10-22] MEDS: HEPARIN SODIUM 25000 UNITS/D5W 250 ML IV PRN (15:50)
[2019-10-22 16:00] VITALS: BP 161/52
[2019-10-22] MEDS ORDERED: MAGNESIUM HYDROXIDE SUSPENSION 30 ML UDCUP PO PRN (19:30)
[2019-10-22 20:00] VITALS: BP 149/79
[2019-10-22] MEDS: DOCUSATE SODIUM 100 MG/10 ML LIQUID UDCUP NG SCH (21:11)
[2019-10-23] VITALS: BP 127/43
[2019-10-23 00:54] LABS: GLUCOSE,POINT OF CARE 108 MG/DL (70-110)
[2019-10-23] MEDS: FentaNYL CITRATE PF 500 MCG in SODIUM CHLORIDE 0.9% 90 ML IV PRN ×2 (02:31→22:36)
[2019-10-23 04:00] VITALS: BP 109/38
[2019-10-23 06:14] LABS: BASOPHILS % (AUTO) 0.9 % (0.0-2.0); HEMATOCRIT 28.3 % (36-46); HEMOGLOBIN 9.4 g/dL (12.0-16.0); LYMPHOCYTES # (AUTO) 1.3 K/uL (1.0-4.8); LYMPHOCYTES % (AUTO) 10.7 % (22.0-44.0); MEAN CORPUSCULAR HEMOGLOBIN 28.9 pg (26.0-34.0); MEAN CORPUSCULAR HGB CONC 33.1 G/dL (31.0-37.0); MEAN CORPUSCULAR VOLUME 87 fL (80-100); MONOCYTES # (AUTO) 0.6 K/uL (0.1-1.0); NEUTROPHILS # (AUTO) 10.1 K/uL (1.8-7.7); NEUTROPHILS % (AUTO) 82.4 % (40.0-70.0); PLATELET COUNT (AUTO) 402 K/uL (150-450); RED BLOOD CELL COUNT(AUTO) 3.25 MIL/uL (4.00-5.20)
[2019-10-23] MEDS: PROPOFOL 1000 MG/ISO-OSM 100 ML IV PRN ×4 (06:41→21:34)
[2019-10-23 06:42] LABS: ALBUMIN 3.5 g/dL (3.4-5.0); BILIRUBIN,TOTAL 0.5 mg/dL (0.1-1.0); C-REACTIVE PROTEIN QUANT 1.67 mg/dL (0.00-0.30); CALCIUM, TOTAL 10.1 mg/dL (8.8-10.5); CREATININE 3.43 mg/dL (0.60-1.30); POTASSIUM 3.9 mmol/L (3.5-5.1); TOTAL PROTEIN, SERUM 7.3 g/dL (6.4-8.2)
[2019-10-23] MEDS: HEPARIN SODIUM 25000 UNITS/D5W 250 ML IV PRN (07:03)
[2019-10-23 07:33] LABS: GLUCOSE,POINT OF CARE 139 MG/DL (70-110)
[2019-10-23 08:00] VITALS: BP 136/42
[2019-10-23] MEDS: ASPIRIN 81 MG CHEWABLE TABLET PO SCH (08:17)
[2019-10-23] MEDS: ZINC SULFATE 220 MG CAPSULE PO SCH ×2 (08:17→22:36)
[2019-10-23] MEDS: VITAMIN B COMP/VIT C/FOLIC ACID CAPSULE PO SCH (08:17)
[2019-10-23] MEDS: FAMOTIDINE 20 MG TABLET PO SCH (08:17)
[2019-10-23] MEDS: METOPROLOL TARTRATE 25 MG TABLET PO SCH ×2 (08:17→21:00)
[2019-10-23] MEDS: DOCUSATE SODIUM 100 MG/10 ML LIQUID UDCUP NG SCH ×2 (08:18→22:36)
[2019-10-23] MEDS: MetroNIDAZOLE 500 MG TABLET PO SCH ×2 (08:20→15:19)
[2019-10-23] MEDS: AMINO ACIDS/PROTEIN HYDROLYS 30 ML TUBE PO SCH (08:20)
[2019-10-23 12:00] VITALS: BP 144/49
[2019-10-23 14:15] LABS: ABG A-A DIFF O2 161.4 mmHg (10-20.0); ABG CARBOXYHEMOGLOBIN 0.8 % (0.0-1.5); ABG HCO3 21.9 mmol/L (22.0-26.0); ABG METHEMOGLOBIN 0.4 % (0.0-1.5); ABG OXYGEN CONTENT 15.6 mL/dL (15.0-23.0); ABG OXYGEN SATURATION 94.1 % (95.0-98.0); ABG PCO2 44 mmHg (35-45); ABG PH 7.337 (7.35-7.450); ABG TOTAL HEMOGLOBIN 11.9 G/dL (12.0-18.0); PO2, ARTERIAL BG 74.2 mmHg (79.0-87.0); SOURCE, BLOOD GAS ARTERIAL; TEMPERATURE, FAHRENHEIT, BG 97.9 FAHREN (96.0-98.6)
[2019-10-23 14:16] LABS: O2 DEVICE,BLOOD GAS VENTILATOR (ROOM AIR); SITE, BLOOD GAS ARTERIAL LINE
[2019-10-23 14:17] LABS: VENT MODE, BG APRV (ROOM AIR)
[2019-10-23] MEDS ORDERED: SODIUM CHLORIDE 0.9% 250 ML IV ONE (15:16)
[2019-10-23 16:00] VITALS: BP 166/50
[2019-10-23 20:00] VITALS: BP 133/49
[2019-10-23] MEDS ORDERED: RAPID SEQUENCE KIT [RSI] 1 EACH KIT ONE (20:07)
[2019-10-23] MEDS ORDERED: ROCURONIUM BROMIDE 10 MG/ML 5 ML VIAL ONE (20:08)
[2019-10-23 20:58] LABS: GLUCOSE,POINT OF CARE 119 MG/DL (70-110)
[2019-10-23 20:58] LABS: GLUCOSE,POINT OF CARE 119 MG/DL (70-110)
[2019-10-23 21:21] LABS: ABG A-A DIFF O2 117.5 mmHg (10-20.0); ABG BASE EXCESS 4.9 mmol/L (-2.0-3.0); ABG CARBOXYHEMOGLOBIN 0.5 % (0.0-1.5); ABG HCO3 27.7 mmol/L (22.0-26.0); ABG METHEMOGLOBIN 0.3 % (0.0-1.5); ABG OXYGEN CONTENT 13.3 mL/dL (15.0-23.0); ABG OXYHEMOGLOBIN 95.2 % (94.0-100.0); ABG PH 7.282 (7.35-7.450); ABG TOTAL HEMOGLOBIN 9.8 G/dL (12.0-18.0); PO2, ARTERIAL BG 89.4 mmHg (79.0-87.0); SOURCE, BLOOD GAS ARTERIAL; TEMPERATURE, FAHRENHEIT, BG 97.8 FAHREN (96.0-98.6)
[2019-10-23 21:22] LABS: ABG PCO2 68 mmHg (35-45); O2 DEVICE,BLOOD GAS VENTILATOR (ROOM AIR); PEEP,BG 0 cm H2O; SITE, BLOOD GAS ARTERIAL LINE; VENT MODE, BG OTHER (ROOM AIR)
[2019-10-23 21:23] LABS: SPONTANEOUS VT, BG 518 ml
[2019-10-23] MEDS: NOREPINEPHRINE 4 MG/D5%-WATER 250 ML IV PRN (21:34)
[2019-10-24] VITALS: BP 159/67
[2019-10-24] MEDS: MetroNIDAZOLE 500 MG TABLET PO SCH ×4 (00:28→23:15)
[2019-10-24] MEDS: PROPOFOL 1000 MG/ISO-OSM 100 ML IV PRN ×4 (00:28→20:48)
[2019-10-24 00:38] LABS: ABG A-A DIFF O2 150.7 mmHg (10-20.0); ABG BASE EXCESS 5.6 mmol/L (-2.0-3.0); ABG CARBOXYHEMOGLOBIN 0.6 % (0.0-1.5); ABG HCO3 28.7 mmol/L (22.0-26.0); ABG METHEMOGLOBIN 0.3 % (0.0-1.5); ABG OXYGEN CONTENT 12.9 mL/dL (15.0-23.0); ABG OXYGEN SATURATION 95.4 % (95.0-98.0); ABG OXYHEMOGLOBIN 94.5 % (94.0-100.0); ABG PCO2 52 mmHg (35-45); ABG PH 7.389 (7.35-7.450); ABG TOTAL HEMOGLOBIN 9.6 G/dL (12.0-18.0); PO2, ARTERIAL BG 75.7 mmHg (79.0-87.0); SOURCE, BLOOD GAS ARTERIAL; TEMPERATURE, FAHRENHEIT, BG 97.7 FAHREN (96.0-98.6)
[2019-10-24 00:39] LABS: O2 DEVICE,BLOOD GAS VENTILATOR (ROOM AIR); SITE, BLOOD GAS ARTERIAL LINE; VENT MODE, BG Press. Control Vent (ROOM AIR)
[2019-10-24 00:40] LABS: PEEP,BG 8 cm H2O; SPONTANEOUS VT, BG 436 ml
[2019-10-24 01:04] LABS: GLUCOSE,POINT OF CARE 140 MG/DL (70-110)
[2019-10-24 04:00] VITALS: BP 154/51
[2019-10-24] MEDS: FentaNYL CITRATE PF 500 MCG in SODIUM CHLORIDE 0.9% 90 ML IV PRN ×2 (05:51→23:16)
[2019-10-24 05:52] LABS: BASOPHILS % (AUTO) 0.4 % (0.0-2.0); EOSINOPHILS % (AUTO) 1.3 % (1.0-6.0); HEMATOCRIT 26.5 % (36-46); HEMOGLOBIN 8.8 g/dL (12.0-16.0); LYMPHOCYTES # (AUTO) 1.1 K/uL (1.0-4.8); MEAN CORPUSCULAR HEMOGLOBIN 28.7 pg (26.0-34.0); MEAN CORPUSCULAR VOLUME 87 fL (80-100); MONOCYTES # (AUTO) 0.8 K/uL (0.1-1.0); MONOCYTES % (AUTO) 8.6 % (2.0-9.0); NEUTROPHILS # (AUTO) 6.8 K/uL (1.8-7.7); NEUTROPHILS % (AUTO) 77.7 % (40.0-70.0); PLATELET COUNT (AUTO) 394 K/uL (150-450); RED BLOOD CELL COUNT(AUTO) 3.05 MIL/uL (4.00-5.20); RED CELL DISTRIBUTION WIDTH 15.9 % (11.5-14.5)
[2019-10-24 06:17] LABS: CALCIUM, TOTAL 9.3 mg/dL (8.8-10.5); CREATININE 1.83 mg/dL (0.60-1.30)
[2019-10-24] MEDS ORDERED: LACTULOSE 20 GM/30 ML SOLUTION UDCUP PO PRN (07:00)
[2019-10-24] MEDS ORDERED: BISACODYL 10 MG RECTAL RECTAL SUPPOSITORY PR PRN (07:00)
[2019-10-24 08:00] VITALS: BP 127/44
[2019-10-24 08:27] LABS: ABG A-A DIFF O2 111.2 mmHg (10-20.0); ABG BASE EXCESS 2.9 mmol/L (-2.0-3.0); ABG CARBOXYHEMOGLOBIN 0.3 % (0.0-1.5); ABG METHEMOGLOBIN 0.3 % (0.0-1.5); ABG OXYGEN CONTENT 14.1 mL/dL (15.0-23.0); ABG OXYGEN SATURATION 96.3 % (95.0-98.0); ABG OXYHEMOGLOBIN 95.7 % (94.0-100.0); ABG PH 7.269 (7.35-7.450); ABG TOTAL HEMOGLOBIN 10.4 G/dL (12.0-18.0); PO2, ARTERIAL BG 97.4 mmHg (79.0-87.0); SOURCE, BLOOD GAS ARTERIAL; TEMPERATURE, FAHRENHEIT, BG 98.6 FAHREN (96.0-98.6)
[2019-10-24 08:28] LABS: ABG PCO2 67 mmHg (35-45); O2 DEVICE,BLOOD GAS VENTILATOR (ROOM AIR); SITE, BLOOD GAS ARTERIAL LINE; VENT MODE, BG Press. Control Vent (ROOM AIR)
[2019-10-24 08:29] LABS: PEEP,BG 8 cm H2O; SPONTANEOUS VT, BG 406 ml
[2019-10-24] MEDS: ASPIRIN 81 MG CHEWABLE TABLET PO SCH (09:56)
[2019-10-24] MEDS: EPOETIN ALFA 10,000 UNITS/ML VIAL SQ SCH (09:56)
[2019-10-24] MEDS: DOCUSATE SODIUM 100 MG/10 ML LIQUID UDCUP NG SCH ×2 (09:56→20:47)
[2019-10-24] MEDS: METOPROLOL TARTRATE 25 MG TABLET PO SCH ×2 (09:57→20:47)
[2019-10-24] MEDS: AMINO ACIDS/PROTEIN HYDROLYS 30 ML TUBE PO SCH (09:57)
[2019-10-24] MEDS: ZINC SULFATE 220 MG CAPSULE PO SCH ×2 (09:57→20:47)
[2019-10-24] MEDS: VITAMIN B COMP/VIT C/FOLIC ACID CAPSULE PO SCH (09:57)
[2019-10-24] MEDS: FAMOTIDINE 20 MG TABLET PO SCH (10:04)
[2019-10-24 11:29] LABS: ABG A-A DIFF O2 136.7 mmHg (10-20.0); ABG BASE EXCESS 4.8 mmol/L (-2.0-3.0); ABG CARBOXYHEMOGLOBIN 0.4 % (0.0-1.5); ABG HCO3 28.1 mmol/L (22.0-26.0); ABG METHEMOGLOBIN 0.3 % (0.0-1.5); ABG OXYGEN CONTENT 14.6 mL/dL (15.0-23.0); ABG OXYGEN SATURATION 96.9 % (95.0-98.0); ABG OXYHEMOGLOBIN 96.2 % (94.0-100.0); ABG PCO2 48 mmHg (35-45); ABG PH 7.405 (7.35-7.450); ABG TOTAL HEMOGLOBIN 10.7 G/dL (12.0-18.0); O2 DEVICE,BLOOD GAS VENTILATOR (ROOM AIR); PEEP,BG 8 cm H2O; SITE, BLOOD GAS ARTERIAL LINE; SOURCE, BLOOD GAS ARTERIAL; TEMPERATURE, FAHRENHEIT, BG 98.9 FAHREN (96.0-98.6)
[2019-10-24 11:30] LABS: SPONTANEOUS VT, BG 401 ml
[2019-10-24 11:31] LABS: VENT MODE, BG Press. Control Vent (ROOM AIR)
[2019-10-24 12:00] VITALS: BP 168/63
[2019-10-24 12:31] LABS: GLUCOSE,POINT OF CARE 88 MG/DL (70-110)
[2019-10-24 17:02] LABS: GLUCOSE,POINT OF CARE 107 MG/DL (70-110)
[2019-10-24] MEDS ORDERED: HEPARIN SODIUM,PORCINE 1,000 UNITS/ML VIAL ONE (18:20)
[2019-10-24 19:05] LABS: GLUCOSE,POINT OF CARE 99 MG/DL (70-110)
[2019-10-24 20:00] VITALS: BP 131/52
[2019-10-24 22:00] VITALS: BP 147/54
[2019-10-24] MEDS: HEPARIN SODIUM 25000 UNITS/D5W 250 ML IV PRN (23:18)
[2019-10-25] VITALS (8 sets, daily range): BP systolic 115–167; BP diastolic 39–83
[2019-10-25] MEDS: PROPOFOL 1000 MG/ISO-OSM 100 ML IV PRN ×4 (00:31→17:10)
[2019-10-25] MEDS: HydrALAZINE HCL 20 MG/ML VIAL IVP PRN (03:24)
[2019-10-25 06:13] LABS: BASOPHILS % (AUTO) 0.5 % (0.0-2.0); EOSINOPHILS % (AUTO) 1.7 % (1.0-6.0); HEMATOCRIT 26.8 % (36-46); HEMOGLOBIN 8.9 g/dL (12.0-16.0); LYMPHOCYTES # (AUTO) 1.7 K/uL (1.0-4.8); LYMPHOCYTES % (AUTO) 17.8 % (22.0-44.0); MEAN CORPUSCULAR HEMOGLOBIN 29.2 pg (26.0-34.0); MEAN CORPUSCULAR HGB CONC 33.2 G/dL (31.0-37.0); MEAN CORPUSCULAR VOLUME 88 fL (80-100); MONOCYTES # (AUTO) 1.1 K/uL (0.1-1.0); MONOCYTES % (AUTO) 11.3 % (2.0-9.0); NEUTROPHILS # (AUTO) 6.5 K/uL (1.8-7.7); NEUTROPHILS % (AUTO) 68.7 % (40.0-70.0); PLATELET COUNT (AUTO) 391 K/uL (150-450); RED BLOOD CELL COUNT(AUTO) 3.06 MIL/uL (4.00-5.20); RED CELL DISTRIBUTION WIDTH 16.1 % (11.5-14.5)
[2019-10-25 06:16] LABS: CALCIUM, TOTAL 9.9 mg/dL (8.8-10.5); CREATININE 2.02 mg/dL (0.60-1.30); POTASSIUM 3.9 mmol/L (3.5-5.1)
[2019-10-25 06:55] LABS: GLUCOSE,POINT OF CARE 107 MG/DL (70-110)
[2019-10-25 06:55] LABS: GLUCOSE,POINT OF CARE 111 MG/DL (70-110)
[2019-10-25] MEDS: MetroNIDAZOLE 500 MG TABLET PO SCH ×2 (08:00→15:57)
[2019-10-25] MEDS: AMINO ACIDS/PROTEIN HYDROLYS 30 ML TUBE PO SCH (08:00)
[2019-10-25] MEDS ORDERED: SODIUM CHLORIDE 0.9% 1,000 ML ONE (08:07)
[2019-10-25] MEDS: ZINC SULFATE 220 MG CAPSULE PO SCH ×2 (12:34→20:29)
[2019-10-25] MEDS: DOCUSATE SODIUM 100 MG/10 ML LIQUID UDCUP NG SCH ×2 (12:34→20:30)
[2019-10-25] MEDS: ASPIRIN 81 MG CHEWABLE TABLET PO SCH (12:34)
[2019-10-25] MEDS: VITAMIN B COMP/VIT C/FOLIC ACID CAPSULE PO SCH (12:34)
[2019-10-25] MEDS: FAMOTIDINE 20 MG TABLET PO SCH (12:36)
[2019-10-25] MEDS: METOPROLOL TARTRATE 25 MG TABLET PO SCH ×2 (12:36→20:29)
[2019-10-25] MEDS: HEPARIN SODIUM 25000 UNITS/D5W 250 ML IV PRN (12:38)
[2019-10-25] MEDS: FentaNYL CITRATE PF 500 MCG in SODIUM CHLORIDE 0.9% 90 ML IV PRN ×2 (14:27→15:45)
[2019-10-25 15:24] LABS: GLUCOSE,POINT OF CARE 102 MG/DL (70-110)
[2019-10-25] MEDS ORDERED: HEPARIN SODIUM,PORCINE 1,000 UNITS/ML VIAL IVP ONE (17:27)
[2019-10-25] MEDS ORDERED: SODIUM CHLORIDE 0.9% 500 ML IV ONE (22:02)
[2019-10-26] VITALS: BP 159/52
[2019-10-26] MEDS: MetroNIDAZOLE 500 MG TABLET PO SCH ×2 (00:08→07:37)
[2019-10-26] MEDS: INSULIN REGULAR, HUMAN 100 UNITS/ML SQ PRN ×2 (00:09→06:19)
[2019-10-26] MEDS: HydrALAZINE HCL 20 MG/ML VIAL IVP PRN (00:29)
[2019-10-26 01:13] LABS: GLUCOSE,POINT OF CARE 102 MG/DL (70-110)
[2019-10-26] MEDS: PROPOFOL 1000 MG/ISO-OSM 100 ML IV PRN ×5 (01:28→22:32)
[2019-10-26] MEDS: FentaNYL CITRATE PF 500 MCG in SODIUM CHLORIDE 0.9% 90 ML IV PRN ×2 (01:29→12:11)
[2019-10-26] MEDS ORDERED: SODIUM CHLORIDE 0.9% 250 ML IV ONE (02:35)
[2019-10-26 04:00] VITALS: BP 105/38
[2019-10-26 06:06] LABS: EOSINOPHILS % (AUTO) 2.6 % (1.0-6.0); HEMATOCRIT 26.1 % (36-46); HEMOGLOBIN 8.6 g/dL (12.0-16.0); LYMPHOCYTES # (AUTO) 1.6 K/uL (1.0-4.8); MEAN CORPUSCULAR HEMOGLOBIN 28.8 pg (26.0-34.0); MEAN CORPUSCULAR HGB CONC 32.7 G/dL (31.0-37.0); MEAN CORPUSCULAR VOLUME 88 fL (80-100); MONOCYTES % (AUTO) 10.7 % (2.0-9.0); NEUTROPHILS # (AUTO) 6.1 K/uL (1.8-7.7); NEUTROPHILS % (AUTO) 67.7 % (40.0-70.0); PLATELET COUNT (AUTO) 347 K/uL (150-450); RED BLOOD CELL COUNT(AUTO) 2.96 MIL/uL (4.00-5.20); RED CELL DISTRIBUTION WIDTH 16.2 % (11.5-14.5)
[2019-10-26 06:32] LABS: GLUCOSE,POINT OF CARE 112 MG/DL (70-110)
[2019-10-26 06:34] LABS: CALCIUM, TOTAL 9.6 mg/dL (8.8-10.5); CREATININE 1.76 mg/dL (0.60-1.30); MAGNESIUM 1.7 mg/dL (1.80-2.40); PHOSPHORUS 4.6 mg/dL (2.5-4.9); POTASSIUM 3.5 mmol/L (3.5-5.1)
[2019-10-26 06:51] LABS: C-REACTIVE PROTEIN QUANT 1.37 mg/dL (0.00-0.30)
[2019-10-26] MEDS: DOCUSATE SODIUM 100 MG/10 ML LIQUID UDCUP NG SCH ×2 (07:37→20:35)
[2019-10-26] MEDS: METOPROLOL TARTRATE 25 MG TABLET PO SCH ×2 (07:37→20:43)
[2019-10-26] MEDS: ZINC SULFATE 220 MG CAPSULE PO SCH ×2 (07:37→20:43)
[2019-10-26] MEDS: VITAMIN B COMP/VIT C/FOLIC ACID CAPSULE PO SCH (07:37)
[2019-10-26] MEDS: FAMOTIDINE 20 MG TABLET PO SCH (07:38)
[2019-10-26] MEDS: AMINO ACIDS/PROTEIN HYDROLYS 30 ML TUBE PO SCH (07:39)
[2019-10-26] MEDS: ASPIRIN 81 MG CHEWABLE TABLET PO SCH (09:00)
[2019-10-26] MEDS ORDERED: MAGNESIUM SULFATE 1 GM in DEXTROSE 5%-WATER 50 ML IV ONE (09:15)
[2019-10-26 15:53] LABS: APPEARANCE,URINE CLOUDY (CLEAR); BILIRUBIN,URINE NEGATIVE (NEGATIVE); GLUCOSE, URINE (UA) NEGATIVE (NEGATIVE); KETONES,URINE NEGATIVE (NEGATIVE); LEUKOCYTE ESTERASE ,URINE MODERATE (NEGATIVE); NITRATE,URINE NEGATIVE (NEGATIVE); OCCULT BLOOD,URINE LARGE (NEGATIVE); PH,URINE 5.5 (5.0-8.0); PROTEIN,URINE SEE CONFIRM (NEGATIVE); UROBILINOGEN,URINE 0.2 mg/dL (<=1.0)
[2019-10-26 16:00] VITALS: BP 119/44
[2019-10-26 16:06] LABS: SULFOSALICYLIC ACID,URINE 3+ (Negative)
[2019-10-26 16:08] LABS: BACTERIA,URINE Few /HPF (None Seen); YEAST,URINE Moderate /HPF (None Seen)
[2019-10-26 16:09] LABS: SQUAMOUS EPITHELIAL CELL,UR Few /LPF (None Seen)
[2019-10-26 17:43] LABS: GLUCOSE,POINT OF CARE 119 MG/DL (70-110)
[2019-10-26] MEDS: HEPARIN SODIUM 25000 UNITS/D5W 250 ML IV PRN ×2 (18:12→22:41)
[2019-10-26 19:00] LABS: GLUCOSE,POINT OF CARE 91 MG/DL (70-110)
[2019-10-26 20:00] VITALS: BP 139/50
[2019-10-27] VITALS: BP 126/43
[2019-10-27] MEDS: FentaNYL CITRATE PF 500 MCG in SODIUM CHLORIDE 0.9% 90 ML IV PRN ×3 (00:03→23:56)
[2019-10-27] MEDS: INSULIN REGULAR, HUMAN 100 UNITS/ML SQ PRN ×2 (01:02→07:00)
[2019-10-27 01:41] LABS: GLUCOSE,POINT OF CARE 105 MG/DL (70-110)
[2019-10-27] MEDS: HEPARIN SODIUM,PORCINE 5,000 UNITS/ML VIAL IVP PRN (02:38)
[2019-10-27] MEDS: PROPOFOL 1000 MG/ISO-OSM 100 ML IV PRN ×3 (03:31→22:08)
[2019-10-27 04:00] VITALS: BP 120/46
[2019-10-27 06:38] LABS: BASOPHILS % (AUTO) 0.9 % (0.0-2.0); EOSINOPHILS % (AUTO) 4.1 % (1.0-6.0); HEMATOCRIT 26.4 % (36-46); HEMOGLOBIN 8.6 g/dL (12.0-16.0); LYMPHOCYTES # (AUTO) 2.3 K/uL (1.0-4.8); LYMPHOCYTES % (AUTO) 27.7 % (22.0-44.0); MEAN CORPUSCULAR HGB CONC 32.6 G/dL (31.0-37.0); MEAN CORPUSCULAR VOLUME 89 fL (80-100); MONOCYTES # (AUTO) 0.9 K/uL (0.1-1.0); MONOCYTES % (AUTO) 11.2 % (2.0-9.0); NEUTROPHILS # (AUTO) 4.7 K/uL (1.8-7.7); NEUTROPHILS % (AUTO) 56.1 % (40.0-70.0); PLATELET COUNT (AUTO) 363 K/uL (150-450); RED BLOOD CELL COUNT(AUTO) 2.97 MIL/uL (4.00-5.20); RED CELL DISTRIBUTION WIDTH 17.5 % (11.5-14.5)
[2019-10-27 06:49] LABS: CREATININE 1.74 mg/dL (0.60-1.30); MAGNESIUM 1.9 mg/dL (1.80-2.40); PHOSPHORUS 5.4 mg/dL (2.5-4.9); POTASSIUM 3.6 mmol/L (3.5-5.1)
[2019-10-27 08:00] VITALS: BP 101/43
[2019-10-27] MEDS: DOCUSATE SODIUM 100 MG/10 ML LIQUID UDCUP NG SCH ×2 (09:00→23:46)
[2019-10-27] MEDS: VITAMIN B COMP/VIT C/FOLIC ACID CAPSULE PO SCH (09:07)
[2019-10-27] MEDS: ASPIRIN 81 MG CHEWABLE TABLET PO SCH (09:07)
[2019-10-27] MEDS: FAMOTIDINE 20 MG TABLET PO SCH (09:07)
[2019-10-27] MEDS: EPOETIN ALFA 10,000 UNITS/ML VIAL SQ SCH (09:07)
[2019-10-27] MEDS: METOPROLOL TARTRATE 25 MG TABLET PO SCH ×2 (09:07→22:08)
[2019-10-27] MEDS: ZINC SULFATE 220 MG CAPSULE PO SCH ×2 (09:07→22:08)
[2019-10-27] MEDS: AMINO ACIDS/PROTEIN HYDROLYS 30 ML TUBE PO SCH (09:34)
[2019-10-27 12:00] VITALS: BP 84/56
[2019-10-27] MEDS: HEPARIN SODIUM 25000 UNITS/D5W 250 ML IV PRN (12:20)
[2019-10-27 16:00] VITALS: BP 130/54
[2019-10-27 16:32] LABS: BASOPHILS % (AUTO) 0.6 % (0.0-2.0); EOSINOPHILS % (AUTO) 3.7 % (1.0-6.0); HEMATOCRIT 27.5 % (36-46); LYMPHOCYTES # (AUTO) 1.8 K/uL (1.0-4.8); LYMPHOCYTES % (AUTO) 19.9 % (22.0-44.0); MEAN CORPUSCULAR HEMOGLOBIN 28.7 pg (26.0-34.0); MEAN CORPUSCULAR HGB CONC 32.6 G/dL (31.0-37.0); MEAN CORPUSCULAR VOLUME 88 fL (80-100); MONOCYTES # (AUTO) 1.1 K/uL (0.1-1.0); MONOCYTES % (AUTO) 12.3 % (2.0-9.0); NEUTROPHILS # (AUTO) 5.8 K/uL (1.8-7.7); NEUTROPHILS % (AUTO) 63.5 % (40.0-70.0); PLATELET COUNT (AUTO) 370 K/uL (150-450); RED BLOOD CELL COUNT(AUTO) 3.13 MIL/uL (4.00-5.20); RED CELL DISTRIBUTION WIDTH 17.4 % (11.5-14.5)
[2019-10-27 16:52] LABS: ABG BASE EXCESS 3.6 mmol/L (-2.0-3.0); ABG CARBOXYHEMOGLOBIN 0.4 % (0.0-1.5); ABG HCO3 27.3 mmol/L (22.0-26.0); ABG METHEMOGLOBIN 0.3 % (0.0-1.5); ABG OXYGEN CONTENT 13.6 mL/dL (15.0-23.0); ABG OXYGEN SATURATION 96.6 % (95.0-98.0); ABG OXYHEMOGLOBIN 95.9 % (94.0-100.0); ABG PCO2 46 mmHg (35-45); ABG PH 7.409 (7.35-7.450); PO2, ARTERIAL BG 87.4 mmHg (79.0-87.0); SOURCE, BLOOD GAS ARTERIAL
[2019-10-27 16:56] LABS: O2 DEVICE,BLOOD GAS VENTILATOR (ROOM AIR); SITE, BLOOD GAS A LINE
[2019-10-27 16:57] LABS: PEEP,BG 5 cm H2O; SPONTANEOUS VT, BG 433 ml; VENT MODE, BG CPAP (ROOM AIR)
[2019-10-28] VITALS (9 sets, daily range): BP systolic 110–148; BP diastolic 44–93
[2019-10-28] MEDS: PROPOFOL 1000 MG/ISO-OSM 100 ML IV PRN ×3 (02:25→21:09)
[2019-10-28 05:21] LABS: GLUCOSE,POINT OF CARE 133 MG/DL (70-110)
[2019-10-28 05:21] LABS: GLUCOSE,POINT OF CARE 129 MG/DL (70-110)
[2019-10-28 06:08] LABS: BASOPHILS % (AUTO) 1.1 % (0.0-2.0); EOSINOPHILS % (AUTO) 4.8 % (1.0-6.0); HEMATOCRIT 26.3 % (36-46); HEMOGLOBIN 8.4 g/dL (12.0-16.0); LYMPHOCYTES # (AUTO) 1.6 K/uL (1.0-4.8); LYMPHOCYTES % (AUTO) 20.8 % (22.0-44.0); MEAN CORPUSCULAR HEMOGLOBIN 28.5 pg (26.0-34.0); MEAN CORPUSCULAR HGB CONC 32.1 G/dL (31.0-37.0); MEAN CORPUSCULAR VOLUME 89 fL (80-100); MONOCYTES # (AUTO) 0.8 K/uL (0.1-1.0); MONOCYTES % (AUTO) 11.1 % (2.0-9.0); NEUTROPHILS # (AUTO) 4.7 K/uL (1.8-7.7); NEUTROPHILS % (AUTO) 62.2 % (40.0-70.0); PLATELET COUNT (AUTO) 353 K/uL (150-450); RED BLOOD CELL COUNT(AUTO) 2.96 MIL/uL (4.00-5.20)
[2019-10-28 06:28] LABS: BILIRUBIN,TOTAL 0.3 mg/dL (0.1-1.0); CREATININE 1.78 mg/dL (0.60-1.30); POTASSIUM 3.9 mmol/L (3.5-5.1); TOTAL PROTEIN, SERUM 6.6 g/dL (6.4-8.2)
[2019-10-28] MEDS: ASPIRIN 81 MG CHEWABLE TABLET PO SCH (08:02)
[2019-10-28] MEDS: ZINC SULFATE 220 MG CAPSULE PO SCH ×2 (08:02→23:38)
[2019-10-28] MEDS: DOCUSATE SODIUM 100 MG/10 ML LIQUID UDCUP NG SCH ×2 (08:02→20:35)
[2019-10-28] MEDS: VITAMIN B COMP/VIT C/FOLIC ACID CAPSULE PO SCH (08:03)
[2019-10-28] MEDS: FAMOTIDINE 20 MG TABLET PO SCH (08:03)
[2019-10-28] MEDS: METOPROLOL TARTRATE 25 MG TABLET PO SCH ×2 (08:03→20:35)
[2019-10-28] MEDS: AMINO ACIDS/PROTEIN HYDROLYS 30 ML TUBE PO SCH (08:49)
[2019-10-28 11:27] LABS: GLUCOSE,POINT OF CARE 128 MG/DL (70-110)
[2019-10-28 11:28] LABS: GLUCOSE,POINT OF CARE 127 MG/DL (70-110)
[2019-10-28] MEDS: FentaNYL CITRATE PF 500 MCG in SODIUM CHLORIDE 0.9% 90 ML IV PRN (13:23)
[2019-10-28 16:37] LABS: ABG A-A DIFF O2 110.9 mmHg (10-20.0); ABG BASE EXCESS 3.8 mmol/L (-2.0-3.0); ABG CARBOXYHEMOGLOBIN 0.4 % (0.0-1.5); ABG HCO3 27.4 mmol/L (22.0-26.0); ABG METHEMOGLOBIN 0.3 % (0.0-1.5); ABG OXYGEN CONTENT 13.7 mL/dL (15.0-23.0); ABG OXYGEN SATURATION 98.2 % (95.0-98.0); ABG OXYHEMOGLOBIN 97.5 % (94.0-100.0); ABG PCO2 48 mmHg (35-45); ABG PH 7.392 (7.35-7.450); ABG TOTAL HEMOGLOBIN 9.8 G/dL (12.0-18.0); PO2, ARTERIAL BG 118.8 mmHg (79.0-87.0); SOURCE, BLOOD GAS ARTERIAL; TEMPERATURE, FAHRENHEIT, BG 98.6 FAHREN (96.0-98.6)
[2019-10-28 17:28] LABS: O2 DEVICE,BLOOD GAS VENTILATOR (ROOM AIR); PEEP,BG 5 cm H2O; PRESSURE SUPPORT, BG 8 cm H2O; SITE, BLOOD GAS A LINE; SPONTANEOUS VT, BG 402 ml; VENT MODE, BG CPAP (ROOM AIR)
[2019-10-28 18:23] LABS: GLUCOSE,POINT OF CARE 132 MG/DL (70-110)
[2019-10-29] VITALS (9 sets, daily range): BP systolic 118–168; BP diastolic 45–67
[2019-10-29] MEDS: INSULIN REGULAR, HUMAN 100 UNITS/ML SQ PRN ×2 (00:03→14:30)
[2019-10-29] MEDS: PROPOFOL 1000 MG/ISO-OSM 100 ML IV PRN ×3 (01:21→21:58)
[2019-10-29 06:05] LABS: EOSINOPHILS % (AUTO) 4.4 % (1.0-6.0); HEMATOCRIT 27.3 % (36-46); HEMOGLOBIN 8.8 g/dL (12.0-16.0); LYMPHOCYTES # (AUTO) 1.4 K/uL (1.0-4.8); LYMPHOCYTES % (AUTO) 19.7 % (22.0-44.0); MEAN CORPUSCULAR HEMOGLOBIN 29.2 pg (26.0-34.0); MEAN CORPUSCULAR HGB CONC 32.4 G/dL (31.0-37.0); MEAN CORPUSCULAR VOLUME 90 fL (80-100); MONOCYTES # (AUTO) 0.9 K/uL (0.1-1.0); MONOCYTES % (AUTO) 12.2 % (2.0-9.0); NEUTROPHILS # (AUTO) 4.5 K/uL (1.8-7.7); NEUTROPHILS % (AUTO) 62.7 % (40.0-70.0); PLATELET COUNT (AUTO) 355 K/uL (150-450); RED BLOOD CELL COUNT(AUTO) 3.03 MIL/uL (4.00-5.20); RED CELL DISTRIBUTION WIDTH 18.2 % (11.5-14.5)
[2019-10-29 06:15] LABS: CALCIUM, TOTAL 10.4 mg/dL (8.8-10.5); CREATININE 1.68 mg/dL (0.60-1.30)
[2019-10-29] MEDS: FentaNYL CITRATE PF 500 MCG in SODIUM CHLORIDE 0.9% 90 ML IV PRN (07:27)
[2019-10-29] MEDS: FAMOTIDINE 20 MG TABLET PO SCH (08:19)
[2019-10-29] MEDS: DOCUSATE SODIUM 100 MG/10 ML LIQUID UDCUP NG SCH ×2 (08:19→21:58)
[2019-10-29] MEDS: ASPIRIN 81 MG CHEWABLE TABLET PO SCH (08:19)
[2019-10-29] MEDS: ZINC SULFATE 220 MG CAPSULE PO SCH ×2 (08:20→22:47)
[2019-10-29] MEDS: METOPROLOL TARTRATE 25 MG TABLET PO SCH ×2 (08:20→21:58)
[2019-10-29] MEDS: EPOETIN ALFA 10,000 UNITS/ML VIAL SQ SCH (08:22)
[2019-10-29] MEDS: VITAMIN B COMP/VIT C/FOLIC ACID CAPSULE PO SCH (08:22)
[2019-10-29] MEDS: AMINO ACIDS/PROTEIN HYDROLYS 30 ML TUBE PO SCH (08:23)
[2019-10-29] MEDS: HydrALAZINE HCL 20 MG/ML VIAL IVP PRN (10:22)
[2019-10-29 10:27] LABS: ABG A-A DIFF O2 138.9 mmHg (10-20.0); ABG BASE EXCESS 5.1 mmol/L (-2.0-3.0); ABG CARBOXYHEMOGLOBIN 0.2 % (0.0-1.5); ABG HCO3 28.4 mmol/L (22.0-26.0); ABG METHEMOGLOBIN 0.3 % (0.0-1.5); ABG OXYGEN CONTENT 12.7 mL/dL (15.0-23.0); ABG OXYGEN SATURATION 96.8 % (95.0-98.0); ABG OXYHEMOGLOBIN 96.3 % (94.0-100.0); ABG PCO2 47 mmHg (35-45); ABG PH 7.414 (7.35-7.450); ABG TOTAL HEMOGLOBIN 9.3 G/dL (12.0-18.0); PO2, ARTERIAL BG 92.4 mmHg (79.0-87.0); SOURCE, BLOOD GAS ARTERIAL; TEMPERATURE, FAHRENHEIT, BG 97.6 FAHREN (96.0-98.6)
[2019-10-29 10:28] LABS: O2 DEVICE,BLOOD GAS VENT (ROOM AIR); PEEP,BG 5 cm H2O; PRESSURE SUPPORT, BG 8 cm H2O; SITE, BLOOD GAS ARTERIAL LINE; VENT MODE, BG CPAP (ROOM AIR)
[2019-10-29 10:29] LABS: SPONTANEOUS VT, BG 486 ml
[2019-10-29] MEDS ORDERED: ALBUMIN HUMAN 25%-50GM/200ML 200 ML IV ONE (12:30)
[2019-10-29] MEDS ORDERED: SODIUM CHLORIDE 0.9% 100 ML ONE (13:50)
[2019-10-29] MEDS ORDERED: ALBUMIN HUMAN 5%-12.5GM/250ML 250 ML IV ONE (14:00)
[2019-10-29] MEDS: SODIUM CHLORIDE 0.45% 1,000 ML IV SCH (14:27)
[2019-10-29 14:35] LABS: GLUCOSE,POINT OF CARE 177 MG/DL (70-110)
[2019-10-29] MEDS ORDERED: HEPARIN SODIUM,PORCINE 5,000 UNITS/ML VIAL IVP PRN ×2 (17:45)
[2019-10-29 18:33] LABS: GLUCOSE,POINT OF CARE 126 MG/DL (70-110)
[2019-10-29 18:33] LABS: GLUCOSE,POINT OF CARE 122 MG/DL (70-110)
[2019-10-29 18:33] LABS: GLUCOSE,POINT OF CARE 111 MG/DL (70-110)
[2019-10-29] MEDS: HEPARIN SODIUM 25000 UNITS/D5W 250 ML IV PRN (18:37)
[2019-10-29] MEDS: ACETYLCYSTEINE 10% 100 MG/ML 4 ML NEB SOLUTION NEB SCH (20:25)
[2019-10-29] MEDS ORDERED: SODIUM CHLORIDE 0.9% 500 ML IV ONE (22:54)
[2019-10-30] VITALS: BP 179/61
[2019-10-30 00:44] LABS: GLUCOSE,POINT OF CARE 104 MG/DL (70-110)
[2019-10-30] MEDS: HydrALAZINE HCL 20 MG/ML VIAL IVP PRN (01:53)
[2019-10-30] MEDS: ACETAMINOPHEN 325 MG TABLET PO PRN (01:53)
[2019-10-30] MEDS: ACETYLCYSTEINE 10% 100 MG/ML 4 ML NEB SOLUTION NEB SCH ×4 (03:00→21:30)
[2019-10-30] MEDS: SODIUM CHLORIDE 0.45% 1,000 ML IV SCH ×2 (03:02→18:36)
[2019-10-30 04:00] VITALS: BP 167/54
[2019-10-30] MEDS: PROPOFOL 1000 MG/ISO-OSM 100 ML IV PRN ×4 (05:30→20:07)
[2019-10-30 06:42] LABS: BASOPHILS % (AUTO) 1.1 % (0.0-2.0); EOSINOPHILS % (AUTO) 1.8 % (1.0-6.0); HEMATOCRIT 27.4 % (36-46); HEMOGLOBIN 8.9 g/dL (12.0-16.0); LYMPHOCYTES # (AUTO) 2.4 K/uL (1.0-4.8); LYMPHOCYTES % (AUTO) 25.7 % (22.0-44.0); MEAN CORPUSCULAR HEMOGLOBIN 29.1 pg (26.0-34.0); MEAN CORPUSCULAR HGB CONC 32.3 G/dL (31.0-37.0); MEAN CORPUSCULAR VOLUME 90 fL (80-100); MONOCYTES % (AUTO) 11.1 % (2.0-9.0); NEUTROPHILS # (AUTO) 5.6 K/uL (1.8-7.7); NEUTROPHILS % (AUTO) 60.3 % (40.0-70.0); PLATELET COUNT (AUTO) 337 K/uL (150-450); RED BLOOD CELL COUNT(AUTO) 3.04 MIL/uL (4.00-5.20)
[2019-10-30 06:57] LABS: ALBUMIN 3.3 g/dL (3.4-5.0); BILIRUBIN,TOTAL 0.3 mg/dL (0.1-1.0); CALCIUM, TOTAL 10.4 mg/dL (8.8-10.5); CREATININE 1.5 mg/dL (0.60-1.30); POTASSIUM 3.8 mmol/L (3.5-5.1); TOTAL PROTEIN, SERUM 7.3 g/dL (6.4-8.2)
[2019-10-30 08:00] VITALS: BP 165/56
[2019-10-30] MEDS ORDERED: 0.9% SODIUM CHLORIDE 5 ML NEB SOLUTION NEB ONE (08:06)
[2019-10-30] MEDS: AMINO ACIDS/PROTEIN HYDROLYS 30 ML TUBE PO SCH (08:23)
[2019-10-30] MEDS: DOCUSATE SODIUM 100 MG/10 ML LIQUID UDCUP NG SCH ×2 (08:26→20:48)
[2019-10-30] MEDS: ASPIRIN 81 MG CHEWABLE TABLET PO SCH (08:27)
[2019-10-30] MEDS: ZINC SULFATE 220 MG CAPSULE PO SCH ×2 (08:27→20:51)
[2019-10-30] MEDS: METOPROLOL TARTRATE 25 MG TABLET PO SCH ×2 (08:27→20:51)
[2019-10-30] MEDS: FAMOTIDINE 20 MG TABLET PO SCH (08:27)
[2019-10-30] MEDS: VITAMIN B COMP/VIT C/FOLIC ACID CAPSULE PO SCH (08:27)
[2019-10-30] MEDS: FentaNYL CITRATE PF 500 MCG in SODIUM CHLORIDE 0.9% 90 ML IV PRN (08:28)
[2019-10-30 11:25] LABS: ABG A-A DIFF O2 122.5 mmHg (10-20.0); ABG BASE EXCESS 3.9 mmol/L (-2.0-3.0); ABG CARBOXYHEMOGLOBIN 0.3 % (0.0-1.5); ABG HCO3 27.6 mmol/L (22.0-26.0); ABG METHEMOGLOBIN 0.3 % (0.0-1.5); ABG OXYGEN CONTENT 13.4 mL/dL (15.0-23.0); ABG OXYHEMOGLOBIN 97.4 % (94.0-100.0); ABG PCO2 43 mmHg (35-45); ABG PH 7.434 (7.35-7.450); ABG TOTAL HEMOGLOBIN 9.6 G/dL (12.0-18.0); PO2, ARTERIAL BG 113.1 mmHg (79.0-87.0); SOURCE, BLOOD GAS ARTERIAL; TEMPERATURE, FAHRENHEIT, BG 98.7 FAHREN (96.0-98.6)
[2019-10-30 11:26] LABS: O2 DEVICE,BLOOD GAS VENTILATOR (ROOM AIR); PEEP,BG 5 cm H2O; SITE, BLOOD GAS ARTERIAL LINE; VENT MODE, BG Press. Control Vent (ROOM AIR)
[2019-10-30 12:00] VITALS: BP 159/57
[2019-10-30 15:10] LABS: dsDNA(nDNA) Screen-Crithidia Negative (Negative)
[2019-10-30 16:00] VITALS: BP 154/65
[2019-10-30 16:51] LABS: GLUCOSE,POINT OF CARE 111 MG/DL (70-110)
[2019-10-30 17:47] LABS: INR 1.1 (0.9-1.1); PROTHROMBIN TIME 11.4 SEC (9.4-11.6)
[2019-10-30] MEDS: HEPARIN SODIUM 25000 UNITS/D5W 250 ML IV PRN (18:56)
[2019-10-30 20:00] VITALS: BP 158/67
[2019-10-30] MEDS ORDERED: SODIUM CHLORIDE 0.9% 500 ML IV ONE (23:45)
[2019-10-31] VITALS: BP 133/59
[2019-10-31] MEDS: PROPOFOL 1000 MG/ISO-OSM 100 ML IV PRN ×7 (00:25→23:12)
[2019-10-31] MEDS: INSULIN REGULAR, HUMAN 100 UNITS/ML SQ PRN ×3 (01:14→23:55)
[2019-10-31] MEDS: ACETYLCYSTEINE 10% 100 MG/ML 4 ML NEB SOLUTION NEB SCH ×2 (01:59→08:42)
[2019-10-31] MEDS: FentaNYL CITRATE PF 500 MCG in SODIUM CHLORIDE 0.9% 90 ML IV PRN ×3 (03:37→19:36)
[2019-10-31] MEDS: HydrALAZINE HCL 20 MG/ML VIAL IVP PRN ×2 (03:41→11:49)
[2019-10-31 04:00] VITALS: BP 155/50
[2019-10-31 05:35] LABS: BASOPHILS % (AUTO) 1.4 % (0.0-2.0); EOSINOPHILS % (AUTO) 4.2 % (1.0-6.0); HEMATOCRIT 27.4 % (36-46); LYMPHOCYTES % (AUTO) 24.3 % (22.0-44.0); MEAN CORPUSCULAR HEMOGLOBIN 29.4 pg (26.0-34.0); MEAN CORPUSCULAR HGB CONC 32.7 G/dL (31.0-37.0); MEAN CORPUSCULAR VOLUME 90 fL (80-100); MONOCYTES # (AUTO) 0.9 K/uL (0.1-1.0); MONOCYTES % (AUTO) 10.9 % (2.0-9.0); NEUTROPHILS # (AUTO) 4.8 K/uL (1.8-7.7); NEUTROPHILS % (AUTO) 59.2 % (40.0-70.0); PLATELET COUNT (AUTO) 373 K/uL (150-450); RED BLOOD CELL COUNT(AUTO) 3.05 MIL/uL (4.00-5.20); RED CELL DISTRIBUTION WIDTH 18.9 % (11.5-14.5)
[2019-10-31 05:38] LABS: GLUCOSE,POINT OF CARE 113 MG/DL (70-110)
[2019-10-31 05:59] LABS: ALBUMIN 3.2 g/dL (3.4-5.0); BILIRUBIN,TOTAL 0.4 mg/dL (0.1-1.0); CALCIUM, TOTAL 10.2 mg/dL (8.8-10.5); CREATININE 1.27 mg/dL (0.60-1.30); MAGNESIUM 1.4 mg/dL (1.80-2.40); PHOSPHORUS 3.8 mg/dL (2.5-4.9); POTASSIUM 3.6 mmol/L (3.5-5.1); TOTAL PROTEIN, SERUM 7.1 g/dL (6.4-8.2)
[2019-10-31] MEDS ORDERED: MAGNESIUM SULFATE 3 GM in DEXTROSE 5%-WATER 100 ML IV ONE (07:45)
[2019-10-31 08:00] VITALS: BP 159/52
[2019-10-31] MEDS: EPOETIN ALFA 10,000 UNITS/ML VIAL SQ SCH (08:02)
[2019-10-31] MEDS: ASPIRIN 81 MG CHEWABLE TABLET PO SCH (08:02)
[2019-10-31] MEDS: ZINC SULFATE 220 MG CAPSULE PO SCH ×2 (08:02→20:12)
[2019-10-31] MEDS: DOCUSATE SODIUM 100 MG/10 ML LIQUID UDCUP NG SCH ×2 (08:02→20:09)
[2019-10-31] MEDS: METOPROLOL TARTRATE 25 MG TABLET PO SCH ×2 (08:02→20:12)
[2019-10-31] MEDS: FAMOTIDINE 20 MG TABLET PO SCH (08:02)
[2019-10-31] MEDS: VITAMIN B COMP/VIT C/FOLIC ACID CAPSULE PO SCH (08:02)
[2019-10-31] MEDS: AMINO ACIDS/PROTEIN HYDROLYS 30 ML TUBE PO SCH (08:03)
[2019-10-31] MEDS: DEXTROSE 5%-WATER 1,000 ML IV SCH (08:03)
[2019-10-31 08:29] LABS: ABG A-A DIFF O2 131.4 mmHg (10-20.0); ABG BASE EXCESS 2.7 mmol/L (-2.0-3.0); ABG CARBOXYHEMOGLOBIN 0.8 % (0.0-1.5); ABG HCO3 26.7 mmol/L (22.0-26.0); ABG METHEMOGLOBIN 0.3 % (0.0-1.5); ABG OXYGEN CONTENT 13.2 mL/dL (15.0-23.0); ABG OXYGEN SATURATION 97.8 % (95.0-98.0); ABG OXYHEMOGLOBIN 96.7 % (94.0-100.0); ABG PCO2 41 mmHg (35-45); ABG PH 7.433 (7.35-7.450); ABG TOTAL HEMOGLOBIN 9.6 G/dL (12.0-18.0); O2 DEVICE,BLOOD GAS VENTILATOR (ROOM AIR); PEEP,BG 5 cm H2O; PO2, ARTERIAL BG 106.3 mmHg (79.0-87.0); SITE, BLOOD GAS ARTERIAL LINE; SOURCE, BLOOD GAS ARTERIAL; TEMPERATURE, FAHRENHEIT, BG 98.6 FAHREN (96.0-98.6); VENT MODE, BG Press. Control Vent (ROOM AIR)
[2019-10-31 08:30] LABS: SPONTANEOUS VT, BG 500 ml
[2019-10-31 10:34] LABS: GLUCOSE,POINT OF CARE 98 MG/DL (70-110)
[2019-10-31 10:34] LABS: GLUCOSE,POINT OF CARE 99 MG/DL (70-110)
[2019-10-31] MEDS ORDERED: ROCURONIUM BROMIDE 10 MG/ML 5 ML VIAL IVP ONE (11:00)
[2019-10-31 12:00] VITALS: BP 176/61
[2019-10-31] MEDS: IPRATROPIUM BROMIDE 0.5 MG/2.5 ML NEB SOLUTION NEB SCH ×2 (13:50→20:00)
[2019-10-31] MEDS: ALBUTEROL SULFATE 2.5 MG/0.5 ML NEB SOLUTION NEB SCH ×2 (13:50→20:00)
[2019-10-31] MEDS ORDERED: LIDOCAINE 2% 30 ML JELLY ONE (15:01)
[2019-10-31 16:00] VITALS: BP 145/42
[2019-10-31 20:00] VITALS: BP 162/59
[2019-10-31 20:38] LABS: GLUCOSE,POINT OF CARE 134 MG/DL (70-110)
[2019-10-31 20:38] LABS: GLUCOSE,POINT OF CARE 116 MG/DL (70-110)
[2019-10-31 23:50] LABS: GLUCOSE,POINT OF CARE 116 MG/DL (70-110)
[2019-11-01] MEDS: ALBUTEROL SULFATE 2.5 MG/0.5 ML NEB SOLUTION NEB SCH ×4 (02:00→20:00)
[2019-11-01] MEDS: IPRATROPIUM BROMIDE 0.5 MG/2.5 ML NEB SOLUTION NEB SCH ×4 (02:00→20:00)
[2019-11-01] MEDS: PROPOFOL 1000 MG/ISO-OSM 100 ML IV PRN ×6 (02:21→23:17)
[2019-11-01] MEDS: FentaNYL CITRATE PF 500 MCG in SODIUM CHLORIDE 0.9% 90 ML IV PRN ×2 (02:31→11:35)
[2019-11-01 04:00] VITALS: BP 111/42
[2019-11-01] MEDS: DEXTROSE 5%-WATER 1,000 ML IV SCH (04:19)
[2019-11-01] MEDS ORDERED: NOREPINEPHRINE BITARTRATE 16 MG in DEXTROSE 5%-WATER 234 ML IV PRN (05:12)
[2019-11-01] MEDS: INSULIN REGULAR, HUMAN 100 UNITS/ML SQ PRN (05:50)
[2019-11-01 06:18] LABS: BASOPHILS % (AUTO) 1.4 % (0.0-2.0); EOSINOPHILS % (AUTO) 4.9 % (1.0-6.0); HEMATOCRIT 26.6 % (36-46); HEMOGLOBIN 8.6 g/dL (12.0-16.0); LYMPHOCYTES # (AUTO) 1.6 K/uL (1.0-4.8); LYMPHOCYTES % (AUTO) 23.1 % (22.0-44.0); MEAN CORPUSCULAR HEMOGLOBIN 29.3 pg (26.0-34.0); MEAN CORPUSCULAR HGB CONC 32.3 G/dL (31.0-37.0); MEAN CORPUSCULAR VOLUME 91 fL (80-100); MONOCYTES # (AUTO) 0.7 K/uL (0.1-1.0); MONOCYTES % (AUTO) 9.8 % (2.0-9.0); NEUTROPHILS # (AUTO) 4.2 K/uL (1.8-7.7); NEUTROPHILS % (AUTO) 60.8 % (40.0-70.0); PLATELET COUNT (AUTO) 334 K/uL (150-450); RED BLOOD CELL COUNT(AUTO) 2.94 MIL/uL (4.00-5.20); RED CELL DISTRIBUTION WIDTH 18.9 % (11.5-14.5)
[2019-11-01 06:42] LABS: BILIRUBIN,TOTAL 0.3 mg/dL (0.1-1.0); CALCIUM, TOTAL 9.9 mg/dL (8.8-10.5); CREATININE 1.23 mg/dL (0.60-1.30); POTASSIUM 3.4 mmol/L (3.5-5.1)
[2019-11-01 08:00] VITALS: BP 154/55
[2019-11-01] MEDS: HEPARIN SODIUM 25000 UNITS/D5W 250 ML IV PRN (08:53)
[2019-11-01] MEDS: ZINC SULFATE 220 MG CAPSULE PO SCH ×2 (08:54→21:50)
[2019-11-01] MEDS: AMINO ACIDS/PROTEIN HYDROLYS 30 ML TUBE PO SCH (08:54)
[2019-11-01] MEDS: DOCUSATE SODIUM 100 MG/10 ML LIQUID UDCUP NG SCH ×2 (08:54→21:50)
[2019-11-01] MEDS: FAMOTIDINE 20 MG TABLET PO SCH (08:54)
[2019-11-01] MEDS: METOPROLOL TARTRATE 25 MG TABLET PO SCH ×2 (08:55→21:50)
[2019-11-01] MEDS: VITAMIN B COMP/VIT C/FOLIC ACID CAPSULE PO SCH (08:55)
[2019-11-01] MEDS: ASPIRIN 81 MG CHEWABLE TABLET PO SCH (08:57)
[2019-11-01 12:00] VITALS: BP 146/52
[2019-11-01 12:56] LABS: GLUCOSE,POINT OF CARE 130 MG/DL (70-110)
[2019-11-01 16:00] VITALS: BP 149/53
[2019-11-01 20:00] VITALS: BP 156/55
[2019-11-01 23:14] LABS: GLUCOSE,POINT OF CARE 124 MG/DL (70-110)
[2019-11-02] VITALS: BP 143/53
[2019-11-02 00:44] LABS: GLUCOMETER DEV NAME(LOC) 4E.2; GLUCOSE,POINT OF CARE 125 MG/DL (70-110)
[2019-11-02] MEDS: DEXTROSE 5%-WATER 1,000 ML IV SCH ×2 (01:37→21:48)
[2019-11-02] MEDS: PROPOFOL 1000 MG/ISO-OSM 100 ML IV PRN ×6 (01:48→23:37)
[2019-11-02] MEDS: ALBUTEROL SULFATE 2.5 MG/0.5 ML NEB SOLUTION NEB SCH ×4 (02:00→20:30)
[2019-11-02] MEDS: IPRATROPIUM BROMIDE 0.5 MG/2.5 ML NEB SOLUTION NEB SCH ×4 (02:00→20:30)
[2019-11-02 04:00] VITALS: BP 137/55
[2019-11-02] MEDS: HEPARIN SODIUM 25000 UNITS/D5W 250 ML IV PRN ×2 (04:16→21:51)
[2019-11-02 06:57] LABS: ALBUMIN 2.9 g/dL (3.4-5.0); BILIRUBIN,TOTAL 0.3 mg/dL (0.1-1.0); CALCIUM, TOTAL 9.8 mg/dL (8.8-10.5); CREATININE 1.1 mg/dL (0.60-1.30); POTASSIUM 3.7 mmol/L (3.5-5.1); TOTAL PROTEIN, SERUM 6.8 g/dL (6.4-8.2)
[2019-11-02 07:50] LABS: BASOPHILS % (AUTO) 1.3 % (0.0-2.0); EOSINOPHILS % (AUTO) 4.3 % (1.0-6.0); HEMATOCRIT 26.6 % (36-46); HEMOGLOBIN 8.8 g/dL (12.0-16.0); LYMPHOCYTES % (AUTO) 22.1 % (22.0-44.0); MEAN CORPUSCULAR HEMOGLOBIN 29.8 pg (26.0-34.0); MEAN CORPUSCULAR HGB CONC 33.1 G/dL (31.0-37.0); MEAN CORPUSCULAR VOLUME 90 fL (80-100); MONOCYTES # (AUTO) 0.9 K/uL (0.1-1.0); MONOCYTES % (AUTO) 9.8 % (2.0-9.0); NEUTROPHILS # (AUTO) 5.7 K/uL (1.8-7.7); NEUTROPHILS % (AUTO) 62.5 % (40.0-70.0); PLATELET COUNT (AUTO) 383 K/uL (150-450); RED BLOOD CELL COUNT(AUTO) 2.96 MIL/uL (4.00-5.20); RED CELL DISTRIBUTION WIDTH 19.2 % (11.5-14.5)
[2019-11-02 08:00] VITALS: BP 144/58
[2019-11-02] MEDS: FAMOTIDINE 20 MG TABLET PO SCH (08:20)
[2019-11-02] MEDS: ASPIRIN 81 MG CHEWABLE TABLET PO SCH (08:20)
[2019-11-02] MEDS: VITAMIN B COMP/VIT C/FOLIC ACID CAPSULE PO SCH (08:20)
[2019-11-02] MEDS: ZINC SULFATE 220 MG CAPSULE PO SCH ×2 (08:21→21:49)
[2019-11-02] MEDS: METOPROLOL TARTRATE 25 MG TABLET PO SCH ×2 (08:22→21:49)
[2019-11-02] MEDS: AMINO ACIDS/PROTEIN HYDROLYS 30 ML TUBE PO SCH (08:22)
[2019-11-02] MEDS: DOCUSATE SODIUM 100 MG/10 ML LIQUID UDCUP NG SCH ×2 (09:49→21:48)
[2019-11-02] MEDS: FentaNYL CITRATE PF 500 MCG in SODIUM CHLORIDE 0.9% 90 ML IV PRN ×2 (10:49→21:52)
[2019-11-02 12:00] VITALS: BP 141/59
[2019-11-02 16:00] VITALS: BP 132/59
[2019-11-02 17:44] LABS: GLUCOMETER DEV NAME(LOC) 4E.2; GLUCOSE,POINT OF CARE 99 MG/DL (70-110)
[2019-11-02 17:44] LABS: GLUCOMETER DEV NAME(LOC) 4E.2; GLUCOSE,POINT OF CARE 113 MG/DL (70-110)
[2019-11-03] VITALS (9 sets, daily range): BP systolic 132–164; BP diastolic 54–64
[2019-11-03] MEDS: ALBUTEROL SULFATE 2.5 MG/0.5 ML NEB SOLUTION NEB SCH ×4 (03:07→20:25)
[2019-11-03] MEDS: IPRATROPIUM BROMIDE 0.5 MG/2.5 ML NEB SOLUTION NEB SCH ×4 (03:07→20:25)
[2019-11-03] MEDS: PROPOFOL 1000 MG/ISO-OSM 100 ML IV PRN ×5 (04:20→19:11)
[2019-11-03 06:01] LABS: GLUCOMETER DEV NAME(LOC) 4E.2; GLUCOSE,POINT OF CARE 122 MG/DL (70-110)
[2019-11-03 06:02] LABS: GLUCOMETER DEV NAME(LOC) 4E.2; GLUCOSE,POINT OF CARE 129 MG/DL (70-110)
[2019-11-03 06:02] LABS: GLUCOMETER DEV NAME(LOC) 4E.2; GLUCOSE,POINT OF CARE 114 MG/DL (70-110)
[2019-11-03 06:10] LABS: BASOPHILS % (AUTO) 0.9 % (0.0-2.0); EOSINOPHILS % (AUTO) 3.4 % (1.0-6.0); HEMATOCRIT 26.6 % (36-46); HEMOGLOBIN 8.7 g/dL (12.0-16.0); LYMPHOCYTES # (AUTO) 1.6 K/uL (1.0-4.8); LYMPHOCYTES % (AUTO) 17.2 % (22.0-44.0); MEAN CORPUSCULAR HEMOGLOBIN 29.4 pg (26.0-34.0); MEAN CORPUSCULAR HGB CONC 32.6 G/dL (31.0-37.0); MEAN CORPUSCULAR VOLUME 90 fL (80-100); MONOCYTES % (AUTO) 10.9 % (2.0-9.0); NEUTROPHILS # (AUTO) 6.3 K/uL (1.8-7.7); NEUTROPHILS % (AUTO) 67.6 % (40.0-70.0); PLATELET COUNT (AUTO) 396 K/uL (150-450); RED BLOOD CELL COUNT(AUTO) 2.95 MIL/uL (4.00-5.20); RED CELL DISTRIBUTION WIDTH 19.1 % (11.5-14.5)
[2019-11-03 06:22] LABS: ANION GAP 15 mmol/L (8-16); CALCIUM, TOTAL 9.6 mg/dL (8.8-10.5); CARBON DIOXIDE 26 mmol/L (22-29); CHLORIDE 105 mmol/L (98-107); CREATININE 1.09 mg/dL (0.60-1.30); GLOMERULAR FILTR. RATE CALC > 60 mL/min (>60); GLUCOSE,RANDOM 118 mg/dL (70-110); POTASSIUM 3.8 mmol/L (3.5-5.1); SODIUM SERUM 146 mmol/L (136-145); UREA NITROGEN, BLOOD 31 mg/dL (7-18)
[2019-11-03] MEDS: DOCUSATE SODIUM 100 MG/10 ML LIQUID UDCUP NG SCH ×3 (08:59→22:33)
[2019-11-03] MEDS: AMINO ACIDS/PROTEIN HYDROLYS 30 ML TUBE PO SCH (08:59)
[2019-11-03] MEDS: ASPIRIN 81 MG CHEWABLE TABLET PO SCH (08:59)
[2019-11-03] MEDS: METOPROLOL TARTRATE 25 MG TABLET PO SCH ×2 (09:00→22:36)
[2019-11-03] MEDS: VITAMIN B COMP/VIT C/FOLIC ACID CAPSULE PO SCH (09:00)
[2019-11-03] MEDS: FAMOTIDINE 20 MG TABLET PO SCH (09:00)
[2019-11-03] MEDS: ZINC SULFATE 220 MG CAPSULE PO SCH ×2 (09:00→22:33)
[2019-11-03] MEDS: EPOETIN ALFA 10,000 UNITS/ML VIAL SQ SCH (09:01)
[2019-11-03] MEDS: HydrALAZINE HCL 20 MG/ML VIAL IVP PRN (09:02)
[2019-11-03] MEDS: FentaNYL CITRATE PF 500 MCG in SODIUM CHLORIDE 0.9% 90 ML IV PRN ×2 (10:32→18:00)
[2019-11-03] MEDS: HEPARIN SODIUM 25000 UNITS/D5W 250 ML IV PRN (13:21)
[2019-11-03] MEDS: DEXTROSE 5%-WATER 1,000 ML IV SCH (15:25)
[2019-11-03 18:09] LABS: GLUCOSE,POINT OF CARE 120 MG/DL (70-110)
[2019-11-03 18:09] LABS: GLUCOMETER DEV NAME(LOC) 4E.2; GLUCOSE,POINT OF CARE 106 MG/DL (70-110)
[2019-11-03 21:23] LABS: GLUCOSE,POINT OF CARE 112 MG/DL (70-110)
[2019-11-04] VITALS (31 sets, daily range): BP systolic 116–177; BP diastolic 48–84
[2019-11-04] MEDS: ALBUTEROL SULFATE 2.5 MG/0.5 ML NEB SOLUTION NEB SCH ×4 (02:33→19:29)
[2019-11-04] MEDS: IPRATROPIUM BROMIDE 0.5 MG/2.5 ML NEB SOLUTION NEB SCH ×4 (02:33→19:29)
[2019-11-04 06:24] LABS: BASOPHILS % (AUTO) 0.9 % (0.0-2.0); EOSINOPHILS % (AUTO) 3.9 % (1.0-6.0); HEMATOCRIT 25.5 % (36-46); HEMOGLOBIN 8.3 g/dL (12.0-16.0); LYMPHOCYTES # (AUTO) 1.6 K/uL (1.0-4.8); LYMPHOCYTES % (AUTO) 19.4 % (22.0-44.0); MEAN CORPUSCULAR HEMOGLOBIN 29.3 pg (26.0-34.0); MEAN CORPUSCULAR HGB CONC 32.6 G/dL (31.0-37.0); MEAN CORPUSCULAR VOLUME 90 fL (80-100); MONOCYTES # (AUTO) 0.8 K/uL (0.1-1.0); MONOCYTES % (AUTO) 9.3 % (2.0-9.0); NEUTROPHILS # (AUTO) 5.4 K/uL (1.8-7.7); NEUTROPHILS % (AUTO) 66.5 % (40.0-70.0); PLATELET COUNT (AUTO) 374 K/uL (150-450); RED BLOOD CELL COUNT(AUTO) 2.84 MIL/uL (4.00-5.20); RED CELL DISTRIBUTION WIDTH 18.8 % (11.5-14.5)
[2019-11-04 06:35] LABS: ANION GAP 9 mmol/L (8-16); CALCIUM, TOTAL 9.5 mg/dL (8.8-10.5); CARBON DIOXIDE 27 mmol/L (22-29); CHLORIDE 105 mmol/L (98-107); CREATININE 0.87 mg/dL (0.60-1.30); GLOMERULAR FILTR. RATE CALC > 60 mL/min (>60); GLUCOSE,RANDOM 122 mg/dL (70-110); POTASSIUM 3.1 mmol/L (3.5-5.1); SODIUM SERUM 141 mmol/L (136-145); UREA NITROGEN, BLOOD 25 mg/dL (7-18)
[2019-11-04 06:56] LABS: GLUCOSE,POINT OF CARE 123 MG/DL (70-110)
[2019-11-04] MEDS: DOCUSATE SODIUM 100 MG/10 ML LIQUID UDCUP NG SCH ×2 (09:00→20:57)
[2019-11-04] MEDS: FAMOTIDINE 20 MG TABLET PO SCH (09:43)
[2019-11-04] MEDS: ASPIRIN 81 MG CHEWABLE TABLET PO SCH (09:44)
[2019-11-04] MEDS: METOPROLOL TARTRATE 25 MG TABLET PO SCH ×2 (09:44→20:56)
[2019-11-04] MEDS: PROPOFOL 1000 MG/ISO-OSM 100 ML IV PRN ×2 (09:45→14:28)
[2019-11-04] MEDS: VITAMIN B COMP/VIT C/FOLIC ACID CAPSULE PO SCH (11:27)
[2019-11-04] MEDS: ZINC SULFATE 220 MG CAPSULE PO SCH ×2 (11:28→20:57)
[2019-11-04] MEDS: AMINO ACIDS/PROTEIN HYDROLYS 30 ML TUBE PO SCH (11:28)
[2019-11-04] MEDS: DEXTROSE 5%-WATER 1,000 ML IV SCH (11:59)
[2019-11-04 13:08] LABS: GLUCOSE,POINT OF CARE 133 MG/DL (70-110)
[2019-11-04] MEDS: FentaNYL CITRATE PF 500 MCG in SODIUM CHLORIDE 0.9% 90 ML IV PRN (15:08)
[2019-11-04] MEDS: MORPHINE SULFATE 2 MG/ML SYRINGE IVP PRN ×2 (16:50→23:30)
[2019-11-04] MEDS: LORazepam 2 MG/ML VIAL IVP PRN (17:52)
[2019-11-04] MEDS: ACETAMINOPHEN 325 MG TABLET PO PRN (18:56)
[2019-11-04 20:03] LABS: GLUCOSE,POINT OF CARE 143 MG/DL (70-110)
[2019-11-04 21:32] LABS: GLUCOSE,POINT OF CARE 141 MG/DL (70-110)
[2019-11-04] MEDS: HEPARIN SODIUM 25000 UNITS/D5W 250 ML IV PRN (23:00)
[2019-11-05] VITALS (30 sets, daily range): BP systolic 116–187; BP diastolic 49–66
[2019-11-05] MEDS: LORazepam 2 MG/ML VIAL IVP PRN ×4 (00:08→23:49)
[2019-11-05] MEDS: MORPHINE SULFATE 2 MG/ML SYRINGE IVP PRN ×3 (01:35→23:49)
[2019-11-05] MEDS: IPRATROPIUM BROMIDE 0.5 MG/2.5 ML NEB SOLUTION NEB SCH ×4 (02:00→20:15)
[2019-11-05] MEDS: ALBUTEROL SULFATE 2.5 MG/0.5 ML NEB SOLUTION NEB SCH ×4 (02:00→20:15)
[2019-11-05] MEDS: FentaNYL CITRATE PF 500 MCG in SODIUM CHLORIDE 0.9% 90 ML IV PRN (02:09)
[2019-11-05] MEDS: PROPOFOL 1000 MG/ISO-OSM 100 ML IV PRN ×2 (02:10→06:03)
[2019-11-05 06:34] LABS: GLUCOSE,POINT OF CARE 121 MG/DL (70-110)
[2019-11-05 06:34] LABS: GLUCOSE,POINT OF CARE 147 MG/DL (70-110)
[2019-11-05 07:02] LABS: BASOPHILS % (AUTO) 0.7 % (0.0-2.0); EOSINOPHILS % (AUTO) 0.5 % (1.0-6.0); HEMATOCRIT 27.2 % (36-46); HEMOGLOBIN 8.6 g/dL (12.0-16.0); LYMPHOCYTES # (AUTO) 1.8 K/uL (1.0-4.8); MEAN CORPUSCULAR HEMOGLOBIN 28.1 pg (26.0-34.0); MEAN CORPUSCULAR HGB CONC 31.6 G/dL (31.0-37.0); MEAN CORPUSCULAR VOLUME 89 fL (80-100); MONOCYTES # (AUTO) 1.2 K/uL (0.1-1.0); MONOCYTES % (AUTO) 9.4 % (2.0-9.0); NEUTROPHILS # (AUTO) 9.7 K/uL (1.8-7.7); NEUTROPHILS % (AUTO) 75.4 % (40.0-70.0); PLATELET COUNT (AUTO) 455 K/uL (150-450); RED BLOOD CELL COUNT(AUTO) 3.07 MIL/uL (4.00-5.20); RED CELL DISTRIBUTION WIDTH 18.7 % (11.5-14.5)
[2019-11-05 07:20] LABS: ALBUMIN 2.5 g/dL (3.4-5.0); BILIRUBIN,TOTAL 0.3 mg/dL (0.1-1.0); CALCIUM, TOTAL 9.7 mg/dL (8.8-10.5); CREATININE 1.13 mg/dL (0.60-1.30); POTASSIUM 3.4 mmol/L (3.5-5.1); TOTAL PROTEIN, SERUM 7.2 g/dL (6.4-8.2)
[2019-11-05] MEDS: DOCUSATE SODIUM 100 MG/10 ML LIQUID UDCUP NG SCH ×3 (07:58→22:11)
[2019-11-05] MEDS: DEXTROSE 5%-WATER 1,000 ML IV SCH (08:00)
[2019-11-05] MEDS: AMINO ACIDS/PROTEIN HYDROLYS 30 ML TUBE PO SCH (08:09)
[2019-11-05] MEDS: ASPIRIN 81 MG CHEWABLE TABLET PO SCH (08:09)
[2019-11-05] MEDS: METOPROLOL TARTRATE 25 MG TABLET PO SCH ×3 (08:10→22:11)
[2019-11-05] MEDS: VITAMIN B COMP/VIT C/FOLIC ACID CAPSULE PO SCH (08:10)
[2019-11-05] MEDS: FAMOTIDINE 20 MG TABLET PO SCH (08:10)
[2019-11-05] MEDS: ZINC SULFATE 220 MG CAPSULE PO SCH ×3 (08:10→22:10)
[2019-11-05] MEDS: EPOETIN ALFA 10,000 UNITS/ML VIAL SQ SCH (08:12)
[2019-11-05] MEDS: HEPARIN SODIUM 25000 UNITS/D5W 250 ML IV PRN (11:30)
[2019-11-05] MEDS ORDERED: POTASSIUM CHLORIDE 10% 40 MEQ/30 ML LIQUID UDCUP NG ONE (12:00)
[2019-11-05 14:14] LABS: GLUCOSE,POINT OF CARE 124 MG/DL (70-110)
[2019-11-05 21:36] LABS: GLUCOSE,POINT OF CARE 133 MG/DL (70-110)
[2019-11-06] VITALS (23 sets, daily range): BP systolic 121–154; BP diastolic 48–86
[2019-11-06 00:54] LABS: GLUCOSE,POINT OF CARE 127 MG/DL (70-110)
[2019-11-06 02:30] LABS: BASOPHILS % (AUTO) 0.8 % (0.0-2.0); EOSINOPHILS % (AUTO) 2.2 % (1.0-6.0); HEMATOCRIT 27.8 % (36-46); LYMPHOCYTES % (AUTO) 21.9 % (22.0-44.0); MEAN CORPUSCULAR HEMOGLOBIN 28.7 pg (26.0-34.0); MEAN CORPUSCULAR HGB CONC 32.4 G/dL (31.0-37.0); MEAN CORPUSCULAR VOLUME 89 fL (80-100); MONOCYTES % (AUTO) 11.4 % (2.0-9.0); NEUTROPHILS # (AUTO) 5.8 K/uL (1.8-7.7); NEUTROPHILS % (AUTO) 63.7 % (40.0-70.0); PLATELET COUNT (AUTO) 456 K/uL (150-450); RED BLOOD CELL COUNT(AUTO) 3.14 MIL/uL (4.00-5.20); RED CELL DISTRIBUTION WIDTH 18.4 % (11.5-14.5)
[2019-11-06] MEDS: IPRATROPIUM BROMIDE 0.5 MG/2.5 ML NEB SOLUTION NEB SCH ×4 (03:26→20:20)
[2019-11-06] MEDS: ALBUTEROL SULFATE 2.5 MG/0.5 ML NEB SOLUTION NEB SCH ×4 (03:26→20:20)
[2019-11-06] MEDS: DEXTROSE 5%-WATER 1,000 ML IV SCH (03:45)
[2019-11-06 06:16] LABS: EOSINOPHILS % (AUTO) 2.2 % (1.0-6.0); HEMATOCRIT 25.5 % (36-46); HEMOGLOBIN 8.4 g/dL (12.0-16.0); LYMPHOCYTES # (AUTO) 1.8 K/uL (1.0-4.8); LYMPHOCYTES % (AUTO) 19.8 % (22.0-44.0); MEAN CORPUSCULAR HEMOGLOBIN 29.2 pg (26.0-34.0); MEAN CORPUSCULAR VOLUME 89 fL (80-100); MONOCYTES # (AUTO) 1.1 K/uL (0.1-1.0); MONOCYTES % (AUTO) 11.4 % (2.0-9.0); NEUTROPHILS # (AUTO) 6.1 K/uL (1.8-7.7); NEUTROPHILS % (AUTO) 65.6 % (40.0-70.0); PLATELET COUNT (AUTO) 459 K/uL (150-450); RED BLOOD CELL COUNT(AUTO) 2.88 MIL/uL (4.00-5.20); RED CELL DISTRIBUTION WIDTH 18.2 % (11.5-14.5)
[2019-11-06 06:54] LABS: GLUCOSE,POINT OF CARE 112 MG/DL (70-110)
[2019-11-06 06:58] LABS: ALBUMIN 2.4 g/dL (3.4-5.0); BILIRUBIN,TOTAL 0.4 mg/dL (0.1-1.0); CREATININE 1.15 mg/dL (0.60-1.30); POTASSIUM 3.2 mmol/L (3.5-5.1); TOTAL PROTEIN, SERUM 7.2 g/dL (6.4-8.2)
[2019-11-06] MEDS: FentaNYL CITRATE PF 500 MCG in SODIUM CHLORIDE 0.9% 90 ML IV PRN (07:21)
[2019-11-06] MEDS: AMINO ACIDS/PROTEIN HYDROLYS 30 ML TUBE PO SCH (08:00)
[2019-11-06] MEDS: DOCUSATE SODIUM 100 MG/10 ML LIQUID UDCUP NG SCH ×2 (09:00→21:00)
[2019-11-06] MEDS: ASPIRIN 81 MG CHEWABLE TABLET PO SCH (09:00)
[2019-11-06] MEDS: VITAMIN B COMP/VIT C/FOLIC ACID CAPSULE PO SCH (09:00)
[2019-11-06] MEDS: ZINC SULFATE 220 MG CAPSULE PO SCH (09:00)
[2019-11-06] MEDS: FAMOTIDINE 20 MG TABLET PO SCH (09:00)
[2019-11-06] MEDS: METOPROLOL TARTRATE 25 MG TABLET PO SCH (09:00)
[2019-11-06 09:13] LABS: % IRON SATURATION 12.4 % (22-44)
[2019-11-06 09:28] LABS: INR 1.1 (0.9-1.1); PROTHROMBIN TIME 11.1 SEC (9.4-11.6)
[2019-11-06 09:40] LABS: GLUCOSE,POINT OF CARE 118 MG/DL (70-110)
[2019-11-06] MEDS ORDERED: POTASSIUM CHLORIDE 20 MEQ ER TABLET PO ONE (12:00)
[2019-11-06 12:29] LABS: GLUCOSE,POINT OF CARE 117 MG/DL (70-110)
[2019-11-06] MEDS ORDERED: ACETAMINOPHEN 1000 MG/ISO-OSM 100 ML IV ONE (16:15)
[2019-11-06 16:33] LABS: APPEARANCE,URINE CLEAR (CLEAR); BILIRUBIN,URINE NEGATIVE (NEGATIVE); GLUCOSE, URINE (UA) NEGATIVE (NEGATIVE); KETONES,URINE NEGATIVE (NEGATIVE); LEUKOCYTE ESTERASE ,URINE TRACE (NEGATIVE); NITRATE,URINE NEGATIVE (NEGATIVE); OCCULT BLOOD,URINE NEGATIVE (NEGATIVE); PH,URINE 6.5 (5.0-8.0); PROTEIN,URINE SEE CONFIRM (NEGATIVE)
[2019-11-06 16:44] LABS: SULFOSALICYLIC ACID,URINE 4+ (Negative)
[2019-11-06 16:45] LABS: RBC,URINE None Seen /HPF (0-2)
[2019-11-06 16:46] LABS: BACTERIA,URINE Few /HPF (None Seen)
[2019-11-06 16:47] LABS: SQUAMOUS EPITHELIAL CELL,UR None Seen /LPF (None Seen); YEAST,URINE Many /HPF (None Seen)
[2019-11-06] MEDS ORDERED: POTASSIUM CHLORIDE 10% 40 MEQ/30 ML LIQUID UDCUP ONE (18:02)
[2019-11-06] MEDS ORDERED: *CLINICAL-CEFEPIME DOSING CLINICAL ONE (21:00)
[2019-11-06 21:39] LABS: GLUCOSE,POINT OF CARE 120 MG/DL (70-110)
[2019-11-06] MEDS ORDERED: VANCOMYCIN HCL 1.5 GM in DEXTROSE 5%-WATER 250 ML IV ONE (23:00)
[2019-11-07] VITALS (21 sets, daily range): BP systolic 133–176; BP diastolic 52–88
[2019-11-07] MEDS: ZINC SULFATE 220 MG CAPSULE PO SCH ×3 (00:08→21:19)
[2019-11-07] MEDS: METOPROLOL TARTRATE 25 MG TABLET PO SCH ×3 (00:08→21:19)
[2019-11-07] MEDS: ACETAMINOPHEN 325 MG TABLET PO PRN ×2 (00:09→10:27)
[2019-11-07] MEDS: DEXTROSE 5%-WATER 1,000 ML IV SCH ×2 (00:15→20:19)
[2019-11-07] MEDS: CEFEPIME HCL 2 GM in DEXTROSE 5%-WATER 50 ML IV SCH ×2 (00:43→13:00)
[2019-11-07] MEDS: LORazepam 2 MG/ML VIAL IVP PRN (01:46)
[2019-11-07] MEDS: IPRATROPIUM BROMIDE 0.5 MG/2.5 ML NEB SOLUTION NEB SCH ×4 (02:29→20:08)
[2019-11-07] MEDS: ALBUTEROL SULFATE 2.5 MG/0.5 ML NEB SOLUTION NEB SCH ×4 (02:29→20:08)
[2019-11-07] MEDS: HEPARIN SODIUM 25000 UNITS/D5W 250 ML IV PRN (06:36)
[2019-11-07 06:45] LABS: GLUCOSE,POINT OF CARE 137 MG/DL (70-110)
[2019-11-07 06:49] LABS: BASOPHILS % (AUTO) 0.5 % (0.0-2.0); HEMATOCRIT 29.3 % (36-46); HEMOGLOBIN 9.3 g/dL (12.0-16.0); LYMPHOCYTES # (AUTO) 2.1 K/uL (1.0-4.8); LYMPHOCYTES % (AUTO) 20.2 % (22.0-44.0); MEAN CORPUSCULAR HEMOGLOBIN 28.2 pg (26.0-34.0); MEAN CORPUSCULAR HGB CONC 31.6 G/dL (31.0-37.0); MEAN CORPUSCULAR VOLUME 89 fL (80-100); MONOCYTES # (AUTO) 1.3 K/uL (0.1-1.0); MONOCYTES % (AUTO) 12.3 % (2.0-9.0); NEUTROPHILS # (AUTO) 6.6 K/uL (1.8-7.7); PLATELET COUNT (AUTO) 475 K/uL (150-450); RED BLOOD CELL COUNT(AUTO) 3.28 MIL/uL (4.00-5.20)
[2019-11-07 07:11] LABS: ALANINE AMINOTRANSFERASE 53 U/L (12-78); ALBUMIN 2.5 g/dL (3.4-5.0); ALKALINE PHOSPHATASE 152 U/L (46-116); ANION GAP 11 mmol/L (8-16); ASPARTATE AMINOTRANSFERASE 39 U/L (15-37); BILIRUBIN,TOTAL 0.4 mg/dL (0.1-1.0); CALCIUM, TOTAL 10.1 mg/dL (8.8-10.5); CARBON DIOXIDE 29 mmol/L (22-29); CHLORIDE 101 mmol/L (98-107); CREATININE 1.07 mg/dL (0.60-1.30); GLOMERULAR FILTR. RATE CALC > 60 mL/min (>60); GLUCOSE,RANDOM 126 mg/dL (70-110); POTASSIUM 3.3 mmol/L (3.5-5.1); SODIUM SERUM 141 mmol/L (136-145); TOTAL PROTEIN, SERUM 7.4 g/dL (6.4-8.2); UREA NITROGEN, BLOOD 19 mg/dL (7-18)
[2019-11-07 08:41] LABS: GLUCOSE,POINT OF CARE 130 MG/DL (70-110)
[2019-11-07] MEDS: VANCOMYCIN HCL 1 GM/D5% WATER 200 ML IV SCH ×2 (08:47→20:19)
[2019-11-07] MEDS: VITAMIN B COMP/VIT C/FOLIC ACID CAPSULE PO SCH (09:00)
[2019-11-07] MEDS: ASPIRIN 81 MG CHEWABLE TABLET PO SCH (10:09)
[2019-11-07] MEDS: DOCUSATE SODIUM 100 MG/10 ML LIQUID UDCUP NG SCH ×2 (10:09→21:19)
[2019-11-07] MEDS: FAMOTIDINE 20 MG TABLET PO SCH (10:09)
[2019-11-07] MEDS: AMINO ACIDS/PROTEIN HYDROLYS 30 ML TUBE PO SCH (10:23)
[2019-11-07 10:28] LABS: ABG A-A DIFF O2 169.9 mmHg (10-20.0); ABG BASE EXCESS 2.8 mmol/L (-2.0-3.0); ABG CARBOXYHEMOGLOBIN 0.6 % (0.0-1.5); ABG HCO3 26.9 mmol/L (22.0-26.0); ABG METHEMOGLOBIN 0.3 % (0.0-1.5); ABG OXYGEN SATURATION 93.4 % (95.0-98.0); ABG OXYHEMOGLOBIN 92.6 % (94.0-100.0); ABG PCO2 37 mmHg (35-45); ABG PH 7.473 (7.35-7.450); ABG TOTAL HEMOGLOBIN 9.9 G/dL (12.0-18.0); PO2, ARTERIAL BG 71.8 mmHg (79.0-87.0); SOURCE, BLOOD GAS ARTERIAL; TEMPERATURE, FAHRENHEIT, BG 100.4 FAHREN (96.0-98.6)
[2019-11-07 10:30] LABS: O2 DEVICE,BLOOD GAS VENTILATOR (ROOM AIR); SITE, BLOOD GAS RT RADIAL; VENT MODE, BG Press. Control Vent (ROOM AIR)
[2019-11-07 10:31] LABS: PEEP,BG 5 cm H2O; VT, ABG 586 ml
[2019-11-07 12:28] LABS: GLUCOSE,POINT OF CARE 149 MG/DL (70-110)
[2019-11-07] MEDS: EPOETIN ALFA 10,000 UNITS/ML VIAL SQ SCH (12:41)
[2019-11-07] MEDS: INSULIN REGULAR, HUMAN 100 UNITS/ML SQ PRN ×2 (12:44→22:34)
[2019-11-07] MEDS ORDERED: POTASSIUM CHL 10 MEQ/WATER 50 ML IV PRN (12:45)
[2019-11-07] MEDS ORDERED: POTASSIUM CHLORIDE 20 MEQ ER TABLET PO PRN (12:45)
[2019-11-07 16:55] LABS: ABG A-A DIFF O2 170.3 mmHg (10-20.0); ABG BASE EXCESS 1.9 mmol/L (-2.0-3.0); ABG CARBOXYHEMOGLOBIN 0.9 % (0.0-1.5); ABG HCO3 26.2 mmol/L (22.0-26.0); ABG METHEMOGLOBIN 0.3 % (0.0-1.5); ABG OXYGEN CONTENT 14.8 mL/dL (15.0-23.0); ABG OXYHEMOGLOBIN 93.9 % (94.0-100.0); ABG PCO2 36 mmHg (35-45); ABG PH 7.471 (7.35-7.450); ABG TOTAL HEMOGLOBIN 11.2 G/dL (12.0-18.0); PO2, ARTERIAL BG 73.7 mmHg (79.0-87.0); SOURCE, BLOOD GAS ARTERIAL; TEMPERATURE, FAHRENHEIT, BG 98.6 FAHREN (96.0-98.6)
[2019-11-07 17:13] LABS: SITE, BLOOD GAS RT RADIAL
[2019-11-07 17:14] LABS: O2 DEVICE,BLOOD GAS VENTILATOR (ROOM AIR); PEEP,BG 5 cm H2O; VENT MODE, BG Press. Control Vent (ROOM AIR)
[2019-11-07 17:15] LABS: VT, ABG 505 ml
[2019-11-07 17:31] LABS: GLUCOSE,POINT OF CARE 116 MG/DL (70-110)
[2019-11-07 20:23] LABS: GLUCOSE,POINT OF CARE 125 MG/DL (70-110)
[2019-11-08] VITALS (16 sets, daily range): BP systolic 107–171; BP diastolic 51–72
[2019-11-08] MEDS: MORPHINE SULFATE 2 MG/ML SYRINGE IVP PRN ×3 (00:17→15:25)
[2019-11-08] MEDS: CEFEPIME HCL 2 GM in DEXTROSE 5%-WATER 50 ML IV SCH ×2 (00:17→14:02)
[2019-11-08] MEDS: HydrALAZINE HCL 20 MG/ML VIAL IVP PRN ×2 (00:26→04:04)
[2019-11-08] MEDS: ALBUTEROL SULFATE 2.5 MG/0.5 ML NEB SOLUTION NEB SCH ×4 (02:27→20:21)
[2019-11-08] MEDS: IPRATROPIUM BROMIDE 0.5 MG/2.5 ML NEB SOLUTION NEB SCH ×4 (02:27→20:21)
[2019-11-08] MEDS: ACETAMINOPHEN 325 MG TABLET PO PRN ×2 (04:04→23:14)
[2019-11-08] MEDS: LORazepam 2 MG/ML VIAL IVP PRN ×2 (04:04→15:47)
[2019-11-08] MEDS: PROPOFOL 1000 MG/ISO-OSM 100 ML IV PRN ×3 (05:48→15:48)
[2019-11-08 05:53] LABS: ABG A-A DIFF O2 221.4 mmHg (10-20.0); ABG BASE EXCESS 2.9 mmol/L (-2.0-3.0); ABG CARBOXYHEMOGLOBIN 0.3 % (0.0-1.5); ABG HCO3 26.6 mmol/L (22.0-26.0); ABG METHEMOGLOBIN 0.4 % (0.0-1.5); ABG OXYGEN CONTENT 13.7 mL/dL (15.0-23.0); ABG OXYGEN SATURATION 93.8 % (95.0-98.0); ABG OXYHEMOGLOBIN 93.1 % (94.0-100.0); ABG PCO2 48 mmHg (35-45); ABG PH 7.385 (7.35-7.450); ABG TOTAL HEMOGLOBIN 10.4 G/dL (12.0-18.0); PO2, ARTERIAL BG 79.8 mmHg (79.0-87.0); SOURCE, BLOOD GAS ARTERIAL; TEMPERATURE, FAHRENHEIT, BG 100.8 FAHREN (96.0-98.6)
[2019-11-08 06:09] LABS: BASOPHILS % (AUTO) 0.6 % (0.0-2.0); EOSINOPHILS % (AUTO) 1.4 % (1.0-6.0); HEMATOCRIT 28.9 % (36-46); HEMOGLOBIN 9.3 g/dL (12.0-16.0); LYMPHOCYTES # (AUTO) 1.5 K/uL (1.0-4.8); LYMPHOCYTES % (AUTO) 11.6 % (22.0-44.0); MEAN CORPUSCULAR HEMOGLOBIN 28.3 pg (26.0-34.0); MEAN CORPUSCULAR HGB CONC 32.2 G/dL (31.0-37.0); MEAN CORPUSCULAR VOLUME 88 fL (80-100); MONOCYTES % (AUTO) 7.9 % (2.0-9.0); NEUTROPHILS % (AUTO) 78.5 % (40.0-70.0); PLATELET COUNT (AUTO) 588 K/uL (150-450); RED BLOOD CELL COUNT(AUTO) 3.29 MIL/uL (4.00-5.20); RED CELL DISTRIBUTION WIDTH 17.6 % (11.5-14.5)
[2019-11-08 06:36] LABS: GLUCOSE,POINT OF CARE 165 MG/DL (70-110)
[2019-11-08 06:40] LABS: CALCIUM, TOTAL 10.3 mg/dL (8.8-10.5); CREATININE 1.1 mg/dL (0.60-1.30); POTASSIUM 3.1 mmol/L (3.5-5.1); VANCOMYCIN,RANDOM 24.9 mcg/mL (25.0-50.0)
[2019-11-08 06:49] LABS: O2 DEVICE,BLOOD GAS VENTILATOR (ROOM AIR); PEEP,BG 5 cm H2O; SITE, BLOOD GAS RT RADIAL; VENT MODE, BG Press. Control Vent (ROOM AIR)
[2019-11-08 08:16] LABS: INR 1.1 (0.9-1.1); PROTHROMBIN TIME 11.6 SEC (9.4-11.6)
[2019-11-08] MEDS: VANCOMYCIN HCL 1 GM/D5% WATER 200 ML IV SCH ×2 (08:59→21:04)
[2019-11-08] MEDS: VITAMIN B COMP/VIT C/FOLIC ACID CAPSULE PO SCH (08:59)
[2019-11-08] MEDS: ZINC SULFATE 220 MG CAPSULE PO SCH ×2 (08:59→21:07)
[2019-11-08] MEDS: METOPROLOL TARTRATE 25 MG TABLET PO SCH ×2 (08:59→21:07)
[2019-11-08] MEDS: ASPIRIN 81 MG CHEWABLE TABLET PO SCH (08:59)
[2019-11-08] MEDS: FAMOTIDINE 20 MG TABLET PO SCH (08:59)
[2019-11-08] MEDS: DOCUSATE SODIUM 100 MG/10 ML LIQUID UDCUP NG SCH ×2 (08:59→21:00)
[2019-11-08] MEDS: AMINO ACIDS/PROTEIN HYDROLYS 30 ML TUBE PO SCH (08:59)
[2019-11-08] MEDS: POTASSIUM CHL 10 MEQ/WATER 50 ML IV SCH ×3 (09:34→12:42)
[2019-11-08] MEDS ORDERED: SODIUM CHLORIDE 0.9% 500 ML IV ONE (12:00)
[2019-11-08 12:23] LABS: GLUCOSE,POINT OF CARE 122 MG/DL (70-110)
[2019-11-08] MEDS: DEXTROSE 5%-WATER 1,000 ML IV SCH (17:17)
[2019-11-08 19:08] LABS: GLUCOSE,POINT OF CARE 124 MG/DL (70-110)
[2019-11-08 21:43] LABS: GLUCOSE,POINT OF CARE 109 MG/DL (70-110)
[2019-11-09 01:07] VITALS: BP 132/68
[2019-11-09] MEDS: CEFEPIME HCL 2 GM in DEXTROSE 5%-WATER 50 ML IV SCH ×2 (01:40→12:03)
[2019-11-09] MEDS: ALBUTEROL SULFATE 2.5 MG/0.5 ML NEB SOLUTION NEB SCH ×3 (03:28→14:23)
[2019-11-09] MEDS: IPRATROPIUM BROMIDE 0.5 MG/2.5 ML NEB SOLUTION NEB SCH ×3 (03:28→14:23)
[2019-11-09 04:07] VITALS: BP 125/66
[2019-11-09 07:50] VITALS: BP 108/56
[2019-11-09 08:05] LABS: EOSINOPHILS % (AUTO) 4.1 % (1.0-6.0); HEMATOCRIT 25.6 % (36-46); HEMOGLOBIN 8.4 g/dL (12.0-16.0); LYMPHOCYTES % (AUTO) 20.7 % (22.0-44.0); MEAN CORPUSCULAR VOLUME 88 fL (80-100); MONOCYTES % (AUTO) 10.3 % (2.0-9.0); NEUTROPHILS # (AUTO) 6.2 K/uL (1.8-7.7); NEUTROPHILS % (AUTO) 63.9 % (40.0-70.0); PLATELET COUNT (AUTO) 515 K/uL (150-450); RED BLOOD CELL COUNT(AUTO) 2.91 MIL/uL (4.00-5.20); RED CELL DISTRIBUTION WIDTH 17.7 % (11.5-14.5)
[2019-11-09 08:18] LABS: INR 1.1 (0.9-1.1); PROTHROMBIN TIME 11.3 SEC (9.4-11.6)
[2019-11-09 08:19] LABS: ALANINE AMINOTRANSFERASE 50 U/L (12-78); ALBUMIN 2.3 g/dL (3.4-5.0); ALKALINE PHOSPHATASE 136 U/L (46-116); ANION GAP 12 mmol/L (8-16); ASPARTATE AMINOTRANSFERASE 29 U/L (15-37); BILIRUBIN,TOTAL 0.3 mg/dL (0.1-1.0); CALCIUM, TOTAL 9.8 mg/dL (8.8-10.5); CARBON DIOXIDE 25 mmol/L (22-29); CHLORIDE 100 mmol/L (98-107); CREATININE 0.97 mg/dL (0.60-1.30); GLOMERULAR FILTR. RATE CALC > 60 mL/min (>60); GLUCOSE,RANDOM 149 mg/dL (70-110); SODIUM SERUM 137 mmol/L (136-145); TOTAL PROTEIN, SERUM 7.1 g/dL (6.4-8.2); UREA NITROGEN, BLOOD 24 mg/dL (7-18)
[2019-11-09] MEDS: VANCOMYCIN HCL 1 GM/D5% WATER 200 ML IV SCH (08:23)
[2019-11-09] MEDS: AMINO ACIDS/PROTEIN HYDROLYS 30 ML TUBE PO SCH (08:23)
[2019-11-09] MEDS: FAMOTIDINE 20 MG TABLET PO SCH (08:23)
[2019-11-09] MEDS: METOPROLOL TARTRATE 25 MG TABLET PO SCH ×2 (08:24→20:14)
[2019-11-09] MEDS: ACETAMINOPHEN 325 MG TABLET PO PRN ×2 (08:24→17:48)
[2019-11-09] MEDS: VITAMIN B COMP/VIT C/FOLIC ACID CAPSULE PO SCH (08:24)
[2019-11-09] MEDS: ASPIRIN 81 MG CHEWABLE TABLET PO SCH (08:24)
[2019-11-09 08:58] LABS: APPEARANCE,URINE CLOUDY (CLEAR); BILIRUBIN,URINE NEGATIVE (NEGATIVE); GLUCOSE, URINE (UA) NEGATIVE (NEGATIVE); KETONES,URINE NEGATIVE (NEGATIVE); LEUKOCYTE ESTERASE ,URINE SMALL (NEGATIVE); NITRATE,URINE NEGATIVE (NEGATIVE); OCCULT BLOOD,URINE NEGATIVE (NEGATIVE); PROTEIN,URINE SEE CONFIRM (NEGATIVE); UROBILINOGEN,URINE 0.2 mg/dL (<=1.0)
[2019-11-09 09:25] LABS: SULFOSALICYLIC ACID,URINE 1+ (Negative)
[2019-11-09 09:26] LABS: BACTERIA,URINE Few /HPF (None Seen); RBC,URINE 0-2 /HPF (0-2); SQUAMOUS EPITHELIAL CELL,UR Few /LPF (None Seen); YEAST,URINE Moderate /HPF (None Seen)
[2019-11-09] MEDS ORDERED: POTASSIUM CHLORIDE 10% 40 MEQ/30 ML LIQUID UDCUP NG ONE (09:45)
[2019-11-09] MEDS ORDERED: POTASSIUM CHLORIDE 10% 40 MEQ/30 ML LIQUID UDCUP PO PRN (10:15)
[2019-11-09] MEDS: DOCUSATE SODIUM 100 MG/10 ML LIQUID UDCUP NG SCH ×2 (11:07→21:00)
[2019-11-09] MEDS: ZINC SULFATE 220 MG CAPSULE PO SCH ×2 (11:08→20:14)
[2019-11-09] MEDS: DEXTROSE 5%-WATER 1,000 ML IV SCH (11:09)
[2019-11-09 11:15] VITALS: BP 118/58
[2019-11-09] MEDS: HEPARIN SODIUM 25000 UNITS/D5W 250 ML IV PRN (12:02)
[2019-11-09] MEDS: MORPHINE SULFATE 2 MG/ML SYRINGE IVP PRN (12:04)
[2019-11-09] MEDS: INSULIN REGULAR, HUMAN 100 UNITS/ML SQ PRN ×2 (13:00→17:51)
[2019-11-09 16:59] LABS: GLUCOMETER DEV NAME(LOC) 5N.1; GLUCOSE,POINT OF CARE 142 MG/DL (70-110)
[2019-11-09 16:59] LABS: GLUCOMETER DEV NAME(LOC) 5N.1; GLUCOSE,POINT OF CARE 141 MG/DL (70-110)
[2019-11-09 17:14] VITALS: BP 125/67
[2019-11-09 20:02] VITALS: BP 119/57
[2019-11-10 00:35] VITALS: BP 130/68
[2019-11-10] MEDS: CEFEPIME HCL 2 GM in DEXTROSE 5%-WATER 50 ML IV SCH ×2 (01:26→12:02)
[2019-11-10] MEDS: IPRATROPIUM BROMIDE 0.5 MG/2.5 ML NEB SOLUTION NEB SCH ×4 (02:16→19:43)
[2019-11-10] MEDS: ALBUTEROL SULFATE 2.5 MG/0.5 ML NEB SOLUTION NEB SCH ×4 (02:16→19:43)
[2019-11-10] MEDS: ACETAMINOPHEN 325 MG TABLET PO PRN ×3 (03:30→16:36)
[2019-11-10] MEDS: LORazepam 2 MG/ML VIAL IVP PRN ×2 (03:43→08:56)
[2019-11-10 04:44] VITALS: BP 108/67
[2019-11-10] MEDS: DEXTROSE 5%-WATER 1,000 ML IV SCH (05:35)
[2019-11-10] MEDS: HEPARIN SODIUM 25000 UNITS/D5W 250 ML IV PRN (05:36)
[2019-11-10 07:54] VITALS: BP 122/58
[2019-11-10] MEDS: VITAMIN B COMP/VIT C/FOLIC ACID CAPSULE PO SCH (08:37)
[2019-11-10] MEDS: ZINC SULFATE 220 MG CAPSULE PO SCH ×2 (08:37→21:04)
[2019-11-10] MEDS: DOCUSATE SODIUM 100 MG/10 ML LIQUID UDCUP NG SCH ×2 (08:37→21:04)
[2019-11-10] MEDS: ASPIRIN 81 MG CHEWABLE TABLET PO SCH (08:37)
[2019-11-10] MEDS: METOPROLOL TARTRATE 25 MG TABLET PO SCH ×2 (08:37→21:04)
[2019-11-10] MEDS: EPOETIN ALFA 10,000 UNITS/ML VIAL SQ SCH (08:38)
[2019-11-10] MEDS: FAMOTIDINE 20 MG TABLET PO SCH (08:38)
[2019-11-10] MEDS: AMINO ACIDS/PROTEIN HYDROLYS 30 ML TUBE PO SCH (08:38)
[2019-11-10 09:05] LABS: BASOPHILS % (AUTO) 0.9 % (0.0-2.0); EOSINOPHILS % (AUTO) 3.6 % (1.0-6.0); HEMOGLOBIN 7.7 g/dL (12.0-16.0); LYMPHOCYTES # (AUTO) 2.1 K/uL (1.0-4.8); LYMPHOCYTES % (AUTO) 19.1 % (22.0-44.0); MEAN CORPUSCULAR HEMOGLOBIN 28.7 pg (26.0-34.0); MEAN CORPUSCULAR HGB CONC 32.2 G/dL (31.0-37.0); MEAN CORPUSCULAR VOLUME 89 fL (80-100); MONOCYTES # (AUTO) 1.2 K/uL (0.1-1.0); MONOCYTES % (AUTO) 10.9 % (2.0-9.0); NEUTROPHILS # (AUTO) 7.1 K/uL (1.8-7.7); NEUTROPHILS % (AUTO) 65.5 % (40.0-70.0); PLATELET COUNT (AUTO) 538 K/uL (150-450); RED BLOOD CELL COUNT(AUTO) 2.69 MIL/uL (4.00-5.20)
[2019-11-10 09:19] LABS: ANION GAP 8 mmol/L (8-16); CALCIUM, TOTAL 10.3 mg/dL (8.8-10.5); CARBON DIOXIDE 25 mmol/L (22-29); CHLORIDE 102 mmol/L (98-107); CREATININE 0.86 mg/dL (0.60-1.30); GLOMERULAR FILTR. RATE CALC > 60 mL/min (>60); GLUCOSE,RANDOM 152 mg/dL (70-110); POTASSIUM 3.9 mmol/L (3.5-5.1); SODIUM SERUM 135 mmol/L (136-145); UREA NITROGEN, BLOOD 28 mg/dL (7-18)
[2019-11-10 09:22] LABS: INR 1.1 (0.9-1.1); PROTHROMBIN TIME 11.2 SEC (9.4-11.6)
[2019-11-10 11:27] VITALS: BP 122/58
[2019-11-10 11:34] LABS: GLUCOMETER DEV NAME(LOC) 5N.1; GLUCOSE,POINT OF CARE 150 MG/DL (70-110)
[2019-11-10 11:34] LABS: GLUCOMETER DEV NAME(LOC) 5N.1; GLUCOSE,POINT OF CARE 130 MG/DL (70-110)
[2019-11-10 11:34] LABS: GLUCOMETER DEV NAME(LOC) 5S.1; GLUCOSE,POINT OF CARE 141 MG/DL (70-110)
[2019-11-10 14:41] LABS: GLUCOMETER DEV NAME(LOC) 5N.1; GLUCOSE,POINT OF CARE 136 MG/DL (70-110)
[2019-11-10 15:48] LABS: APPEARANCE,URINE TURBID (CLEAR); BILIRUBIN,URINE NEGATIVE (NEGATIVE); GLUCOSE, URINE (UA) NEGATIVE (NEGATIVE); KETONES,URINE NEGATIVE (NEGATIVE); LEUKOCYTE ESTERASE ,URINE LARGE (NEGATIVE); NITRATE,URINE NEGATIVE (NEGATIVE); OCCULT BLOOD,URINE NEGATIVE (NEGATIVE); PH,URINE 5.5 (5.0-8.0); PROTEIN,URINE SEE CONFIRM (NEGATIVE); UROBILINOGEN,URINE 0.2 mg/dL (<=1.0)
[2019-11-10] MEDS ORDERED: SODIUM CL IRRIG SOLN BOTTLE 250 ML IRRIG ONE (15:52)
[2019-11-10 16:01] VITALS: BP 140/71
[2019-11-10 16:18] LABS: SULFOSALICYLIC ACID,URINE 4+ (Negative)
[2019-11-10 16:19] LABS: BACTERIA,URINE Moderate /HPF (None Seen); RBC,URINE 0-2 /HPF (0-2); SQUAMOUS EPITHELIAL CELL,UR Few /LPF (None Seen); YEAST,URINE Moderate /HPF (None Seen)
[2019-11-10 16:20] LABS: WBC,URINE >100 /HPF (0-5)
[2019-11-10] MEDS: MetroNIDAZOLE 500 MG/NACL 100 ML IV SCH (16:36)
[2019-11-10 17:40] LABS: GLUCOMETER DEV NAME(LOC) 5N.1; GLUCOSE,POINT OF CARE 126 MG/DL (70-110)
[2019-11-10 19:38] VITALS: BP 130/72
[2019-11-10] MEDS: LEVOFLOXACIN 750 MG/D5% WATER 150 ML IV SCH (23:13)
[2019-11-11] MEDS ORDERED: SODIUM CHLORIDE 0.9% 250 ML IV ONE (00:19)
[2019-11-11] MEDS: CEFEPIME HCL 2 GM in DEXTROSE 5%-WATER 50 ML IV SCH ×2 (00:25→13:55)
[2019-11-11] MEDS: MetroNIDAZOLE 500 MG/NACL 100 ML IV SCH ×3 (00:25→16:24)
[2019-11-11 00:36] VITALS: BP 150/75
[2019-11-11] MEDS: ALBUTEROL SULFATE 2.5 MG/0.5 ML NEB SOLUTION NEB SCH ×4 (01:23→20:15)
[2019-11-11] MEDS: IPRATROPIUM BROMIDE 0.5 MG/2.5 ML NEB SOLUTION NEB SCH ×4 (01:23→20:15)
[2019-11-11 02:38] LABS: GLUCOMETER DEV NAME(LOC) 5N.1; GLUCOSE,POINT OF CARE 135 MG/DL (70-110)
[2019-11-11 04:04] VITALS: BP 159/82
[2019-11-11] MEDS: LORazepam 2 MG/ML VIAL IVP PRN (04:17)
[2019-11-11] MEDS: DEXTROSE 5%-WATER 1,000 ML IV SCH (06:07)
[2019-11-11 06:55] LABS: GLUCOMETER DEV NAME(LOC) 5N.1; GLUCOSE,POINT OF CARE 146 MG/DL (70-110)
[2019-11-11 07:36] VITALS: BP 152/70
[2019-11-11 08:26] LABS: BASOPHILS % (AUTO) 0.6 % (0.0-2.0); EOSINOPHILS % (AUTO) 2.5 % (1.0-6.0); HEMATOCRIT 24.9 % (36-46); HEMOGLOBIN 8.2 g/dL (12.0-16.0); LYMPHOCYTES # (AUTO) 1.6 K/uL (1.0-4.8); LYMPHOCYTES % (AUTO) 15.9 % (22.0-44.0); MEAN CORPUSCULAR HGB CONC 32.9 G/dL (31.0-37.0); MEAN CORPUSCULAR VOLUME 88 fL (80-100); MONOCYTES % (AUTO) 10.4 % (2.0-9.0); NEUTROPHILS # (AUTO) 7.1 K/uL (1.8-7.7); NEUTROPHILS % (AUTO) 70.6 % (40.0-70.0); PLATELET COUNT (AUTO) 586 K/uL (150-450); RED BLOOD CELL COUNT(AUTO) 2.83 MIL/uL (4.00-5.20); RED CELL DISTRIBUTION WIDTH 18.4 % (11.5-14.5)
[2019-11-11 08:36] LABS: INR 1.2 (0.9-1.1); PROTHROMBIN TIME 11.9 SEC (9.4-11.6)
[2019-11-11 08:53] LABS: ALANINE AMINOTRANSFERASE 45 U/L (12-78); ALBUMIN 2.5 g/dL (3.4-5.0); ALKALINE PHOSPHATASE 148 U/L (46-116); ANION GAP 11 mmol/L (8-16); ASPARTATE AMINOTRANSFERASE 30 U/L (15-37); BILIRUBIN,TOTAL 0.3 mg/dL (0.1-1.0); C-REACTIVE PROTEIN QUANT 6.61 mg/dL (0.00-0.30); CALCIUM, TOTAL 10.7 mg/dL (8.8-10.5); CARBON DIOXIDE 24 mmol/L (22-29); CHLORIDE 101 mmol/L (98-107); GLOMERULAR FILTR. RATE CALC > 60 mL/min (>60); GLUCOSE,RANDOM 152 mg/dL (70-110); POTASSIUM 3.8 mmol/L (3.5-5.1); SODIUM SERUM 136 mmol/L (136-145); TOTAL PROTEIN, SERUM 7.6 g/dL (6.4-8.2); UREA NITROGEN, BLOOD 29 mg/dL (7-18)
[2019-11-11] MEDS: DOCUSATE SODIUM 100 MG/10 ML LIQUID UDCUP NG SCH ×2 (09:00→20:31)
[2019-11-11] MEDS: FAMOTIDINE 20 MG TABLET PO SCH (09:40)
[2019-11-11] MEDS: ASPIRIN 81 MG CHEWABLE TABLET PO SCH (09:40)
[2019-11-11] MEDS: VITAMIN B COMP/VIT C/FOLIC ACID CAPSULE PO SCH (09:40)
[2019-11-11] MEDS: ZINC SULFATE 220 MG CAPSULE PO SCH ×2 (09:41→20:30)
[2019-11-11] MEDS: METOPROLOL TARTRATE 25 MG TABLET PO SCH ×2 (09:41→20:30)
[2019-11-11] MEDS: AMINO ACIDS/PROTEIN HYDROLYS 30 ML TUBE PO SCH (09:42)
[2019-11-11 11:22] VITALS: BP 143/73
[2019-11-11 21:15] VITALS: BP 146/77
[2019-11-11] MEDS: LEVOFLOXACIN 750 MG/D5% WATER 150 ML IV SCH (23:58)
[2019-11-12] VITALS (14 sets, daily range): BP systolic 130–166; BP diastolic 49–95
[2019-11-12] MEDS: MetroNIDAZOLE 500 MG/NACL 100 ML IV SCH ×4 (00:40→23:51)
[2019-11-12] MEDS: DEXTROSE 5%-WATER 1,000 ML IV SCH ×2 (00:40→20:21)
[2019-11-12] MEDS: IPRATROPIUM BROMIDE 0.5 MG/2.5 ML NEB SOLUTION NEB SCH ×4 (02:14→20:43)
[2019-11-12] MEDS: ALBUTEROL SULFATE 2.5 MG/0.5 ML NEB SOLUTION NEB SCH ×4 (02:15→20:43)
[2019-11-12 06:30] LABS: GLUCOMETER DEV NAME(LOC) 5N.1; GLUCOSE,POINT OF CARE 159 MG/DL (70-110)
[2019-11-12 06:30] LABS: GLUCOMETER DEV NAME(LOC) 5N.1; GLUCOSE,POINT OF CARE 152 MG/DL (70-110)
[2019-11-12 06:49] LABS: BASOPHILS % (AUTO) 0.7 % (0.0-2.0); EOSINOPHILS % (AUTO) 2.3 % (1.0-6.0); HEMATOCRIT 26.3 % (36-46); HEMOGLOBIN 8.2 g/dL (12.0-16.0); LYMPHOCYTES # (AUTO) 2.2 K/uL (1.0-4.8); LYMPHOCYTES % (AUTO) 19.1 % (22.0-44.0); MEAN CORPUSCULAR HEMOGLOBIN 27.7 pg (26.0-34.0); MEAN CORPUSCULAR HGB CONC 31.2 G/dL (31.0-37.0); MEAN CORPUSCULAR VOLUME 89 fL (80-100); MONOCYTES # (AUTO) 1.4 K/uL (0.1-1.0); MONOCYTES % (AUTO) 11.6 % (2.0-9.0); NEUTROPHILS # (AUTO) 7.8 K/uL (1.8-7.7); NEUTROPHILS % (AUTO) 66.3 % (40.0-70.0); PLATELET COUNT (AUTO) 667 K/uL (150-450); RED BLOOD CELL COUNT(AUTO) 2.96 MIL/uL (4.00-5.20); RED CELL DISTRIBUTION WIDTH 18.3 % (11.5-14.5)
[2019-11-12 06:53] LABS: ANION GAP 8 mmol/L (8-16); CALCIUM, TOTAL 10.8 mg/dL (8.8-10.5); CARBON DIOXIDE 25 mmol/L (22-29); CHLORIDE 101 mmol/L (98-107); CREATININE 0.79 mg/dL (0.60-1.30); GLOMERULAR FILTR. RATE CALC > 60 mL/min (>60); GLUCOSE,RANDOM 140 mg/dL (70-110); POTASSIUM 3.5 mmol/L (3.5-5.1); SODIUM SERUM 134 mmol/L (136-145); UREA NITROGEN, BLOOD 28 mg/dL (7-18)
[2019-11-12 07:09] LABS: INR 1.1 (0.9-1.1); PROTHROMBIN TIME 11.6 SEC (9.4-11.6)
[2019-11-12 08:12] LABS: GLUCOMETER DEV NAME(LOC) 5S.1; GLUCOSE,POINT OF CARE 130 MG/DL (70-110)
[2019-11-12 08:12] LABS: GLUCOMETER DEV NAME(LOC) 5S.1; GLUCOSE,POINT OF CARE 147 MG/DL (70-110)
[2019-11-12] MEDS: METOPROLOL TARTRATE 25 MG TABLET PO SCH ×2 (08:39→22:36)
[2019-11-12] MEDS: DOCUSATE SODIUM 100 MG/10 ML LIQUID UDCUP NG SCH ×2 (08:48→22:36)
[2019-11-12] MEDS: FAMOTIDINE 20 MG TABLET PO SCH (08:56)
[2019-11-12] MEDS: VITAMIN B COMP/VIT C/FOLIC ACID CAPSULE PO SCH (08:56)
[2019-11-12] MEDS: ASPIRIN 81 MG CHEWABLE TABLET PO SCH (08:56)
[2019-11-12] MEDS: AMINO ACIDS/PROTEIN HYDROLYS 30 ML TUBE PO SCH (08:57)
[2019-11-12] MEDS: ZINC SULFATE 220 MG CAPSULE PO SCH ×2 (08:57→22:36)
[2019-11-12] MEDS ORDERED: CeFAZolin 1 GM/DEXTROSE 50 ML IV ONE ×3 (10:30→15:45)
[2019-11-12] MEDS ORDERED: SODIUM CHLORIDE 0.9% 500 ML IV ONE (11:06)
[2019-11-12] MEDS ORDERED: HEPARIN SODIUM 1000 UNITS/NS 500 ML ONE (11:13)
[2019-11-12] MEDS ORDERED: LIDOCAINE/PF 1% 30 ML VIAL ONE (11:13)
[2019-11-12] MEDS ORDERED: SODIUM BICARBONATE 50 MEQ/50 ML VIAL ONE (11:13)
[2019-11-12] MEDS ORDERED: IOHEXOL 300 MG/ML 50 ML VIAL ONE (11:14)
[2019-11-12] MEDS ORDERED: IOHEXOL 300 MG/ML 50 ML VIAL IVP ONE (11:15)
[2019-11-12] MEDS ORDERED: IOHEXOL 300 MG/ML 100 ML VIAL ONE (11:15)
[2019-11-12] MEDS ORDERED: LIDOCAINE 1% 30 ML/SOD BICARB 8.4% 4 ML SQ ONE (11:15)
[2019-11-12] MEDS ORDERED: FentaNYL CITRATE-PF 100 MCG/2 ML VIAL ONE ×2 (11:35→16:18)
[2019-11-12] MEDS ORDERED: MIDAZOLAM HCL 2 MG/2 ML VIAL ONE (11:36)
[2019-11-12] MEDS ORDERED: MIDAZOLAM HCL 2 MG/2 ML VIAL IVP ONE (11:45)
[2019-11-12] MEDS ORDERED: FentaNYL CITRATE-PF 100 MCG/2 ML VIAL IVP ONE (11:45)
[2019-11-12] MEDS: HydrALAZINE HCL 20 MG/ML VIAL IVP PRN (15:25)
[2019-11-12] MEDS ORDERED: SODIUM TETRADECYL SULFATE 3% 60 MG/2 ML VIAL IVP ONE (15:50)
[2019-11-12] MEDS ORDERED: EPINEPHrine 1:10,000 [1 MG/10 ML] SYRINGE ONE (15:50)
[2019-11-12] MEDS ORDERED: SODIUM CHLORIDE 0.9% 1,000 ML ONE (15:50)
[2019-11-12] MEDS ORDERED: FLUMAZENIL 0.1 MG/ML 5 ML VIAL IVP ONE (15:50)
[2019-11-12] MEDS ORDERED: NALOXONE HCL 0.4 MG/ML VIAL ONE (15:50)
[2019-11-12] MEDS ORDERED: DiphenhydrAMINE HCL 50 MG/ML VIAL ONE (15:50)
[2019-11-12] MEDS ORDERED: ATROPINE SULFATE 0.1 MG/ML 10 ML SYRINGE IVP ONE (15:51)
[2019-11-12] MEDS ORDERED: MIDAZOLAM HCL 5 MG/ML VIAL ONE (16:18)
[2019-11-12 18:47] LABS: GLUCOMETER DEV NAME(LOC) 5S.1; GLUCOSE,POINT OF CARE 118 MG/DL (70-110)
[2019-11-12 18:47] LABS: GLUCOMETER DEV NAME(LOC) 5S.1; GLUCOSE,POINT OF CARE 133 MG/DL (70-110)
[2019-11-12] MEDS ORDERED: SOD FERRIC GLUC COMPLX/SUCROSE 125 MG in SODIUM CHLORIDE 0.9% 100 ML IV SCH (20:00)
[2019-11-12] MEDS: LEVOFLOXACIN 750 MG/D5% WATER 150 ML IV SCH (22:38)
[2019-11-13 03:32] LABS: GLUCOMETER DEV NAME(LOC) 5N.1; GLUCOSE,POINT OF CARE 119 MG/DL (70-110)
[2019-11-13 03:57] VITALS: BP 138/75
[2019-11-13] MEDS: IPRATROPIUM BROMIDE 0.5 MG/2.5 ML NEB SOLUTION NEB SCH ×3 (04:23→15:08)
[2019-11-13] MEDS: ALBUTEROL SULFATE 2.5 MG/0.5 ML NEB SOLUTION NEB SCH ×3 (04:23→15:07)
[2019-11-13 06:50] LABS: GLUCOMETER DEV NAME(LOC) 5N.1; GLUCOSE,POINT OF CARE 115 MG/DL (70-110)
[2019-11-13 07:43] LABS: BASOPHILS % (AUTO) 0.7 % (0.0-2.0); EOSINOPHILS % (AUTO) 1.8 % (1.0-6.0); HEMATOCRIT 25.2 % (36-46); LYMPHOCYTES # (AUTO) 2.4 K/uL (1.0-4.8); LYMPHOCYTES % (AUTO) 23.6 % (22.0-44.0); MEAN CORPUSCULAR HEMOGLOBIN 28.1 pg (26.0-34.0); MEAN CORPUSCULAR HGB CONC 31.8 G/dL (31.0-37.0); MEAN CORPUSCULAR VOLUME 88 fL (80-100); MONOCYTES # (AUTO) 1.2 K/uL (0.1-1.0); NEUTROPHILS # (AUTO) 6.3 K/uL (1.8-7.7); NEUTROPHILS % (AUTO) 61.9 % (40.0-70.0); PLATELET COUNT (AUTO) 604 K/uL (150-450); RED BLOOD CELL COUNT(AUTO) 2.85 MIL/uL (4.00-5.20); RED CELL DISTRIBUTION WIDTH 18.6 % (11.5-14.5)
[2019-11-13 07:55] LABS: INR 1.2 (0.9-1.1); PROTHROMBIN TIME 12.5 SEC (9.4-11.6)
[2019-11-13 08:00] LABS: ALANINE AMINOTRANSFERASE 39 U/L (12-78); ALBUMIN 2.5 g/dL (3.4-5.0); ALKALINE PHOSPHATASE 147 U/L (46-116); ANION GAP 12 mmol/L (8-16); ASPARTATE AMINOTRANSFERASE 27 U/L (15-37); BILIRUBIN,TOTAL 0.3 mg/dL (0.1-1.0); CALCIUM, TOTAL 10.3 mg/dL (8.8-10.5); CARBON DIOXIDE 25 mmol/L (22-29); CHLORIDE 105 mmol/L (98-107); CREATININE 0.88 mg/dL (0.60-1.30); GLOMERULAR FILTR. RATE CALC > 60 mL/min (>60); GLUCOSE,RANDOM 120 mg/dL (70-110); POTASSIUM 3.2 mmol/L (3.5-5.1); SODIUM SERUM 142 mmol/L (136-145); TOTAL PROTEIN, SERUM 7.1 g/dL (6.4-8.2); UREA NITROGEN, BLOOD 24 mg/dL (7-18)
[2019-11-13 08:10] VITALS: BP 129/66
[2019-11-13] MEDS ORDERED: HEPARIN SODIUM,PORCINE 5,000 UNITS/ML VIAL SQ SCH (09:00)
[2019-11-13] MEDS: ASPIRIN 81 MG CHEWABLE TABLET PO SCH (09:38)
[2019-11-13] MEDS: DOCUSATE SODIUM 100 MG/10 ML LIQUID UDCUP NG SCH (09:38)
[2019-11-13] MEDS: FAMOTIDINE 20 MG TABLET PO SCH (09:38)
[2019-11-13] MEDS: ZINC SULFATE 220 MG CAPSULE PO SCH (09:38)
[2019-11-13] MEDS: VITAMIN B COMP/VIT C/FOLIC ACID CAPSULE PO SCH (09:39)
[2019-11-13] MEDS: METOPROLOL TARTRATE 25 MG TABLET PO SCH (09:40)
[2019-11-13] MEDS: MetroNIDAZOLE 500 MG/NACL 100 ML IV SCH ×2 (09:41→16:12)
[2019-11-13] MEDS: AMINO ACIDS/PROTEIN HYDROLYS 30 ML TUBE PO SCH (09:42)
[2019-11-13 11:05] VITALS: BP 123/55
[2019-11-13] MEDS: POTASSIUM CHL 10 MEQ/WATER 50 ML IV SCH ×4 (12:28→19:18)
[2019-11-13] MEDS ORDERED: ASPI-728 PO (14:12)
[2019-11-13] MEDS ORDERED: AUD NEB (14:12)
[2019-11-13] MEDS ORDERED: [UNRECOGNIZED DRUG - CODE] IV (14:17)
[2019-11-13] MEDS ORDERED: DOCU-275 PO (14:18)
[2019-11-13] MEDS ORDERED: FAMO20 PO (14:19)
[2019-11-13] MEDS ORDERED: IPRNEB IH (14:21)
[2019-11-13] MEDS ORDERED: LEVO750P7 IV (14:23)
[2019-11-13] MEDS ORDERED: METO25 PO (14:25)
[2019-11-13] MEDS ORDERED: METR-172 IV (14:31)
[2019-11-13] MEDS ORDERED: B CO1CAP6 PO (14:33)
[2019-11-13] MEDS ORDERED: ZINC220C14 PO (14:34)
[2019-11-13] MEDS ORDERED: ACET-66 PO (14:36)
[2019-11-13] MEDS ORDERED: ALBU8HFA IH (14:47)
[2019-11-13] MEDS ORDERED: BISA10SU11 PR (14:53)
[2019-11-13] MEDS ORDERED: HEPA500018 SQ (14:54)
[2019-11-13] MEDS ORDERED: AMPICILLIN SODIUM 2 GM/NS 100 ML IV SCH (15:15)
[2019-11-13] MEDS: DEXTROSE 5%-WATER 1,000 ML IV SCH (16:21)
[2019-11-13 16:40] VITALS: BP 144/74
[2019-11-13 17:55] LABS: GLUCOMETER DEV NAME(LOC) 5S.2A; GLUCOSE,POINT OF CARE 114 MG/DL (70-110)
[2019-11-13 19:58] VITALS: BP 153/70
[2019-11-13 21:07] LABS: GLUCOMETER DEV NAME(LOC) 5N.1; GLUCOSE,POINT OF CARE 92 MG/DL (70-110)
== END 2019-11-13 20:35 | DRG 3 ==
LOC: EMS 21:24 → 5N 23:30 → ICU 10-04 19:15 → ICUN 11-03 19:22 → 4E 11-04 10:46 → ICUN 11-04 10:46 → 5S 11-09 00:30
PROVIDERS: ADMIT Internal Medicine; ATTEND Internal Medicine
PROC: 5A1955Z Respiratory Ventilation, Greater than 96 Consecutive Hours (ICD-10-PCS; principal; 2019-10-05)
PROC: 0BH17EZ Insertion of Endotracheal Airway into Trachea, Via Natural or Artificial Opening (ICD-10-PCS; 2019-10-05)
PROC: 06HY33Z Insertion of Infusion Device into Lower Vein, Percutaneous Approach (ICD-10-PCS; 2019-10-09)
PROC: B54CZZA Ultrasonography of Left Lower Extremity Veins, Guidance (ICD-10-PCS; 2019-10-09)
PROC: 5A1D70Z Performance of Urinary Filtration, Intermittent, Less than 6 Hours Per Day (ICD-10-PCS; 2019-10-10)
PROC: 5A1D70Z Performance of Urinary Filtration, Intermittent, Less than 6 Hours Per Day (ICD-10-PCS; 2019-10-13)
PROC: 5A1D70Z Performance of Urinary Filtration, Intermittent, Less than 6 Hours Per Day (ICD-10-PCS; 2019-10-15)
PROC: 30233L1 Transfusion of Nonautologous Fresh Plasma into Peripheral Vein, Percutaneous Approach (ICD-10-PCS; 2019-10-17)
PROC: 30233N1 Transfusion of Nonautologous Red Blood Cells into Peripheral Vein, Percutaneous Approach (ICD-10-PCS; 2019-10-17)
PROC: 30233K1 Transfusion of Nonautologous Frozen Plasma into Peripheral Vein, Percutaneous Approach (ICD-10-PCS; 2019-10-17)
PROC: 5A1D70Z Performance of Urinary Filtration, Intermittent, Less than 6 Hours Per Day (ICD-10-PCS; 2019-10-17)
PROC: 5A1D70Z Performance of Urinary Filtration, Intermittent, Less than 6 Hours Per Day (ICD-10-PCS; 2019-10-19)
PROC: 5A1D70Z Performance of Urinary Filtration, Intermittent, Less than 6 Hours Per Day (ICD-10-PCS; 2019-10-21)
PROC: 5A1D70Z Performance of Urinary Filtration, Intermittent, Less than 6 Hours Per Day (ICD-10-PCS; 2019-10-23)
PROC: 05HY33Z Insertion of Infusion Device into Upper Vein, Percutaneous Approach (ICD-10-PCS; 2019-10-24)
PROC: B54MZZA Ultrasonography of Right Upper Extremity Veins, Guidance (ICD-10-PCS; 2019-10-24)
PROC: 5A1D70Z Performance of Urinary Filtration, Intermittent, Less than 6 Hours Per Day (ICD-10-PCS; 2019-10-25)
PROC: 05HY33Z Insertion of Infusion Device into Upper Vein, Percutaneous Approach (ICD-10-PCS; 2019-10-30)
PROC: B54NZZA Ultrasonography of Left Upper Extremity Veins, Guidance (ICD-10-PCS; 2019-10-30)
PROC: 0B113F4 Bypass Trachea to Cutaneous with Tracheostomy Device, Percutaneous Approach (ICD-10-PCS; 2019-10-31)
PROC: 0B958ZZ Drainage of Right Middle Lobe Bronchus, Via Natural or Artificial Opening Endoscopic (ICD-10-PCS; 2019-10-31)
PROC: 06H03DZ Insertion of Intraluminal Device into Inferior Vena Cava, Percutaneous Approach (ICD-10-PCS; 2019-11-12)
PROC: 0DHA3UZ Insertion of Feeding Device into Jejunum, Percutaneous Approach (ICD-10-PCS; 2019-11-12)
DX: U07.1 COVID-19 (principal); J12.89 Other viral pneumonia; N17.0 Acute kidney failure with tubular necrosis; J96.01 Acute respiratory failure with hypoxia; R65.10 Systemic inflammatory response syndrome (SIRS) of non-infectious origin without acute organ dysfunction; E87.0 Hyperosmolality and hypernatremia; E87.1 Hypo-osmolality and hyponatremia; I82.411 Acute embolism and thrombosis of right femoral vein; D68.69 Other thrombophilia; J44.0 Chronic obstructive pulmonary disease with (acute) lower respiratory infection; I13.0 Hypertensive heart and chronic kidney disease with heart failure and stage 1 through stage 4 chronic kidney disease, or unspecified chronic kidney disease; J95.01 Hemorrhage from tracheostomy stoma; I82.4Z1 Acute embolism and thrombosis of unspecified deep veins of right distal lower extremity; Z99.11 Dependence on respirator [ventilator] status; I25.10 Atherosclerotic heart disease of native coronary artery without angina pectoris; I50.9 Heart failure, unspecified; D63.1 Anemia in chronic kidney disease; E83.42 Hypomagnesemia; E87.6 Hypokalemia; N18.9 Chronic kidney disease, unspecified; E11.22 Type 2 diabetes mellitus with diabetic chronic kidney disease; Z86.718 Personal history of other venous thrombosis and embolism; K72.90 Hepatic failure, unspecified without coma; R13.10 Dysphagia, unspecified; K20.9 Esophagitis, unspecified; J44.9 Chronic obstructive pulmonary disease, unspecified; I95.9 Hypotension, unspecified
CPT/HCPCS: 31624; 36245; 36569; 36600; 37619; 71250; 72128; 72131; 74018; 76000; 76937; 80074; 82570; 82728; 82784; 82805; 83520; 83540; 83550; 83605; 83615; 83735; 84100; 84132; 84145; 84156; 84166; 84300; 84439; 84443; 84478; 84540; 85379; 85384; 86038; 86140; 86160; 86255; 86334; 86480; 86850; 86900; 86901; 86923; 86927; 87015; 87040; 87070; 87081; 87086; 87101; 87205; 87206; 87220; 87340; 87635; 87804; 90935; 92950; 93005; 93970; 94002; 94003; 94640; C9113; G0378; J0131; J0171; J0290; J0330; J0360; J0456; J0461; J0690; J0692; J0713; J0878; J0885; J1200; J1644; J1815; J1956; J2060; J2250; J2270; J2310; J2370; J2704; J2916; J3010; J3370; J3475; J3480; J3490; J3535; J7030; J7040; J7050; J7060; P9016; P9017; P9041; P9046; Q9967

== ENCOUNTER 2020-03-18 05:09 | Emergency (ER) | payer MEDICARE, OTHER ==
[~2020-03-18] VITALS: Ht 160 cm; Wt 109.1 kg
[~2020-03-18 05:09] MED LIST changes: +ACET-66 PO; +ALBU8HFA IH; +ASPI-728 PO; +AUD NEB; +AZIT-84 PO; +B CO1CAP6 PO; +BISA10SU11 PR; +BUDE10.2 IH; +CEPH-582 PO; +DOCU-275 PO; +FAMO20 PO; +HEPA500018 SQ; +IPRNEB IH; +LEVO750P7 IV; +LOSA25TA21 PO; -LOSA25TA71 PO; +METO25 PO; +METR-172 IV; +OXYC5 PO; +UMEC62.5 IH; +ZINC220C14 PO; +[UNRECOGNIZED DRUG - CODE] IV
[2020-03-18 06:04] LABS: APPEARANCE,URINE CLEAR (CLEAR); BILIRUBIN,URINE NEGATIVE (NEGATIVE); GLUCOSE, URINE (UA) NEGATIVE (NEGATIVE); KETONES,URINE NEGATIVE (NEGATIVE); LEUKOCYTE ESTERASE ,URINE NEGATIVE (NEGATIVE); NITRATE,URINE NEGATIVE (NEGATIVE); OCCULT BLOOD,URINE NEGATIVE (NEGATIVE); PROTEIN,URINE SEE CONFIRM (NEGATIVE); UROBILINOGEN,URINE 0.2 mg/dL (<=1.0)
[2020-03-18 06:11] LABS: SULFOSALICYLIC ACID,URINE 1+ (Negative)
[2020-03-18 06:14] LABS: BACTERIA,URINE Few /HPF (None Seen); RBC,URINE 0-2 /HPF (0-2)
[2020-03-18 06:15] LABS: SQUAMOUS EPITHELIAL CELL,UR Moderate /LPF (None Seen)
[2020-03-18] MEDS ORDERED: ACETAMINOPHEN 500 MG TABLET PO ONE (06:15)
[2020-03-18 06:21] LABS: BASOPHILS % (AUTO) 1.5 % (0.0-2.0); EOSINOPHILS % (AUTO) 1.4 % (1.0-6.0); HEMATOCRIT 31.8 % (36-46); HEMOGLOBIN 10.1 g/dL (12.0-16.0); LYMPHOCYTES # (AUTO) 2.4 K/uL (1.0-4.8); LYMPHOCYTES % (AUTO) 38.5 % (22.0-44.0); MEAN CORPUSCULAR HEMOGLOBIN 27.3 pg (26.0-34.0); MEAN CORPUSCULAR HGB CONC 31.9 G/dL (31.0-37.0); MEAN CORPUSCULAR VOLUME 86 fL (80-100); MONOCYTES # (AUTO) 0.5 K/uL (0.1-1.0); MONOCYTES % (AUTO) 7.6 % (2.0-9.0); NEUTROPHILS # (AUTO) 3.2 K/uL (1.8-7.7); PLATELET COUNT (AUTO) 296 K/uL (150-450); RED BLOOD CELL COUNT(AUTO) 3.72 MIL/uL (4.00-5.20); RED CELL DISTRIBUTION WIDTH 15.2 % (11.5-14.5)
[2020-03-18 06:32] LABS: CALCIUM, TOTAL 9.5 mg/dL (8.8-10.5); CREATININE 1.28 mg/dL (0.60-1.30); POTASSIUM 3.4 mmol/L (3.5-5.1)
[2020-03-18 06:45] LABS: ALBUMIN 3.1 g/dL (3.4-5.0); BILIRUBIN,TOTAL 0.2 mg/dL (0.1-1.0); MAGNESIUM 1.8 mg/dL (1.80-2.40); PHOSPHORUS 3.6 mg/dL (2.5-4.9); TOTAL PROTEIN, SERUM 7.1 g/dL (6.4-8.2)
[2020-03-18 06:46] VITALS: BP 146/75
== END 2020-03-18 07:14 | disposition home or self-care (01) ==
LOC: EMS 05:09
DX: R00.2 Palpitations (principal); R51.9 Headache, unspecified; R06.02 Shortness of breath; J45.909 Unspecified asthma, uncomplicated; I11.0 Hypertensive heart disease with heart failure; I50.9 Heart failure, unspecified; E78.00 Pure hypercholesterolemia, unspecified; Z86.73 Personal history of transient ischemic attack (TIA), and cerebral infarction without residual deficits; Z88.8 Allergy status to other drugs, medicaments and biological substances
CPT/HCPCS: 83735; 84100; 93005; 36415-L1; 36415-TC; 71045-TC

== ENCOUNTER 2020-07-25 17:46 | Inpatient (IN) | payer MEDICARE, OTHER ==
[~2020-07-25] VITALS: Ht 160 cm; Wt 119.0 kg
[~2020-07-25 17:46] MED LIST changes: -ACET-66 PO; -ASPI-728 PO; -ATOR40TA71 PO; -AZIT-84 PO; -B CO1CAP6 PO; -BISA10SU11 PR; -BUDE10.2 IH; -CEPH-582 PO; -DOCU-275 PO; -HEPA500018 SQ; -HYDR-1475 PO; -IPRAHFA IH; -LEVO750P7 IV; -LOSA25TA21 PO; -METR-172 IV; -OXYC5 PO; -POTA-9 PO; -UMEC62.5 IH; -ZINC220C14 PO; -[UNRECOGNIZED DRUG - CODE] IV
[2020-07-25 18:57] LABS: BASOPHILS % (AUTO) 0.5 % (0.0-2.0); EOSINOPHILS % (AUTO) 1.1 % (1.0-6.0); HEMATOCRIT 34.8 % (36-46); HEMOGLOBIN 11.1 g/dL (12.0-16.0); LYMPHOCYTES % (AUTO) 26.6 % (22.0-44.0); MEAN CORPUSCULAR HEMOGLOBIN 27.7 pg (26.0-34.0); MEAN CORPUSCULAR VOLUME 87 fL (80-100); MONOCYTES # (AUTO) 0.4 K/uL (0.1-1.0); MONOCYTES % (AUTO) 5.2 % (2.0-9.0); NEUTROPHILS % (AUTO) 66.6 % (40.0-70.0); PLATELET COUNT (AUTO) 271 K/uL (150-450); RED BLOOD CELL COUNT(AUTO) 4.02 MIL/uL (4.00-5.20); RED CELL DISTRIBUTION WIDTH 16.3 % (11.5-14.5)
[2020-07-25] MEDS ORDERED: SODIUM CHLORIDE 0.9% 500 ML IV ONE (19:15)
[2020-07-25] MEDS ORDERED: MECLIZINE HCL 25 MG TABLET PO ONE (19:15)
[2020-07-25 19:31] LABS: PROTHROMBIN TIME 10.7 SEC (9.4-11.6)
[2020-07-25 19:34] LABS: CALCIUM, TOTAL 9.4 mg/dL (8.8-10.5); CREATININE 1.33 mg/dL (0.60-1.30); POTASSIUM 3.7 mmol/L (3.5-5.1)
[2020-07-25 19:40] LABS: ALBUMIN 3.2 g/dL (3.4-5.0); BILIRUBIN,TOTAL 0.3 mg/dL (0.1-1.0); TOTAL PROTEIN, SERUM 7.5 g/dL (6.4-8.2)
[2020-07-25 20:40] LABS: COVID AG,FIA SOURCE NASOPHARYNGEAL
[2020-07-25 20:48] LABS: APPEARANCE,URINE CLEAR (CLEAR); BILIRUBIN,URINE NEGATIVE (NEGATIVE); GLUCOSE, URINE (UA) NEGATIVE (NEGATIVE); KETONES,URINE NEGATIVE (NEGATIVE); LEUKOCYTE ESTERASE ,URINE NEGATIVE (NEGATIVE); NITRATE,URINE NEGATIVE (NEGATIVE); OCCULT BLOOD,URINE NEGATIVE (NEGATIVE); PROTEIN,URINE SEE CONFIRM (NEGATIVE); UROBILINOGEN,URINE 0.2 mg/dL (<=1.0)
[2020-07-25 20:52] LABS: RBC,URINE 0-2 /HPF (0-2); SULFOSALICYLIC ACID,URINE 3+ (Negative); WBC,URINE 0-2 /HPF (0-5)
[2020-07-25 20:53] LABS: BACTERIA,URINE None Seen /HPF (None Seen); SQUAMOUS EPITHELIAL CELL,UR Few /LPF (None Seen)
[2020-07-25] MEDS ORDERED: MECLIZINE HCL 25 MG TABLET PO PRN (21:45)
[2020-07-25] MEDS ORDERED: IPRATROPIUM BROMIDE HFA 17 MCG/PUFF 12.9 GM INHALER IH PRN (21:45)
[2020-07-25] MEDS ORDERED: PROMETHAZINE HCL 12.5 MG RECTAL SUPPOSITORY PR PRN (21:45)
[2020-07-25 23:21] VITALS: BP 144/76
[2020-07-26] MEDS ORDERED: PNEUMOCOCCAL VACCINE POLYVALENT 0.5 ML VIAL [PPSV23] IM ONE (00:15)
[2020-07-26] MEDS ORDERED: INFLUENZA VIRUS VACCINE QVS 2020-21 (6MO+)/PF 60 MCG/0.5 ML SYRINGE IM ONE (00:15)
[2020-07-26 06:29] VITALS: BP 143/65
[2020-07-26] MEDS ORDERED: ACETAMINOPHEN 325 MG TABLET PO PRN (06:45)
[2020-07-26 07:45] VITALS: BP 109/42
[2020-07-26] MEDS ORDERED: HEPARIN SODIUM,PORCINE 5,000 UNITS/ML VIAL SQ SCH (08:00)
[2020-07-26] MEDS ORDERED: LOSARTAN POTASSIUM 25 MG TABLET PO SCH (09:00)
[2020-07-26] MEDS ORDERED: BUDESONIDE/FORMOTEROL FUMARATE 160-4.5 MCG/PUFF 10.2 GM INHALER IH SCH (09:00)
[2020-07-26] MEDS ORDERED: FAMOTIDINE 20 MG TABLET PO SCH (09:00)
[2020-07-26] MEDS ORDERED: HYDROCHLOROTHIAZIDE 25 MG TABLET PO SCH (09:00)
[2020-07-26] MEDS ORDERED: METOPROLOL TARTRATE 25 MG TABLET PO SCH ×2 (09:00)
[2020-07-26 09:07] VITALS: BP 146/90
[2020-07-26 11:46] VITALS: BP 139/83
[2020-07-26] MEDS ORDERED: ALBU8HFA IH (11:46)
[2020-07-26] MEDS ORDERED: ATOR20TA65 PO (15:12)
[2020-07-26] MEDS ORDERED: BUDE10.2 IH (15:13)
[2020-07-26] MEDS ORDERED: LOSA-370 PO (15:14)
[2020-07-26] MEDS ORDERED: METO25 PO ×3 (15:16→16:55)
[2020-07-26] MEDS ORDERED: MECL25TA39 PO (15:18)
[2020-07-26 15:53] VITALS: BP 133/88
[2020-07-26] MEDS ORDERED: ATOR80TA PO ×2 (16:47→16:54)
[2020-07-26] MEDS ORDERED: LOSA-382 PO (16:48)
[2020-07-26] MEDS ORDERED: ATORVASTATIN CALCIUM 40 MG TABLET PO SCH (21:00)
[2020-07-27 02:36] LABS: GLUCOMETER DEV NAME(LOC) 5S.1; GLUCOSE,POINT OF CARE 110 MG/DL (70-110)
== END 2020-07-26 16:55 | disposition home health service (06) | DRG 149 ==
LOC: EMS 17:46 → 5S 23:08
PROVIDERS: ADMIT Internal Medicine; ATTEND Internal Medicine
DX: R42 Dizziness and giddiness (principal); Z68.42 Body mass index [BMI] 45.0-49.9, adult; E66.01 Morbid (severe) obesity due to excess calories; E11.9 Type 2 diabetes mellitus without complications; D64.9 Anemia, unspecified; I50.9 Heart failure, unspecified; I11.0 Hypertensive heart disease with heart failure; E78.5 Hyperlipidemia, unspecified; E78.00 Pure hypercholesterolemia, unspecified; J45.909 Unspecified asthma, uncomplicated; Z82.49 Family history of ischemic heart disease and other diseases of the circulatory system; Z86.73 Personal history of transient ischemic attack (TIA), and cerebral infarction without residual deficits; Z88.8 Allergy status to other drugs, medicaments and biological substances; Z20.822 Contact with and (suspected) exposure to COVID-19
CPT/HCPCS: 70450; 80053; 81001; 81002; 82962; 83690; 83880; 84484; 85025; 85610; 85730; 93005; 93306; 93880; 97162; 97165; 97535; 99285; J1644; J7040

== ENCOUNTER 2020-09-19 15:32 | Emergency (ER) | payer MEDICARE, OTHER ==
[~2020-09-19] VITALS: Ht 162.6 cm; Wt 113.6 kg
[~2020-09-19 15:32] MED LIST changes: +ATOR20TA65 PO; +ATOR80TA PO; +BUDE10.2 IH; +LOSA25TA21 PO; +LOSA50TA37 PO; +MECL25TA39 PO
[2020-09-19] MEDS ORDERED: ASPIRIN 81 MG CHEWABLE TABLET PO ONE (16:15)
[2020-09-19 17:37] LABS: CALCIUM, TOTAL 9.7 mg/dL (8.8-10.5); CREATININE 1.32 mg/dL (0.60-1.30); POTASSIUM 3.5 mmol/L (3.5-5.1)
[2020-09-19 17:42] LABS: ALBUMIN 3.2 g/dL (3.4-5.0); BILIRUBIN,TOTAL 0.3 mg/dL (0.1-1.0); TOTAL PROTEIN, SERUM 7.6 g/dL (6.4-8.2)
[2020-09-19 17:52] LABS: BASOPHILS % (AUTO) 0.5 % (0.0-2.0); HEMATOCRIT 33.7 % (36-46); HEMOGLOBIN 10.8 g/dL (12.0-16.0); LYMPHOCYTES # (AUTO) 2.3 K/uL (1.0-4.8); LYMPHOCYTES % (AUTO) 35.7 % (22.0-44.0); MEAN CORPUSCULAR HEMOGLOBIN 27.5 pg (26.0-34.0); MEAN CORPUSCULAR VOLUME 86 fL (80-100); MONOCYTES # (AUTO) 0.4 K/uL (0.1-1.0); MONOCYTES % (AUTO) 6.6 % (2.0-9.0); NEUTROPHILS # (AUTO) 3.7 K/uL (1.8-7.7); NEUTROPHILS % (AUTO) 56.2 % (40.0-70.0); PLATELET COUNT (AUTO) 269 K/uL (150-450); RED BLOOD CELL COUNT(AUTO) 3.92 MIL/uL (4.00-5.20); RED CELL DISTRIBUTION WIDTH 16.3 % (11.5-14.5)
[2020-09-19 18:06] VITALS: BP 124/63
== END 2020-09-19 18:30 | disposition home or self-care (01) ==
LOC: EMS 15:35
DX: R00.2 Palpitations (principal); F41.9 Anxiety disorder, unspecified; J45.909 Unspecified asthma, uncomplicated; E11.9 Type 2 diabetes mellitus without complications; I11.0 Hypertensive heart disease with heart failure; I50.9 Heart failure, unspecified; Z86.73 Personal history of transient ischemic attack (TIA), and cerebral infarction without residual deficits; Z88.8 Allergy status to other drugs, medicaments and biological substances
CPT/HCPCS: 85379; 93005; 99285; 36415-L1; 36415-TC; 71045-TC